=== PATIENT | male | born 1955 | race African-American/Black ===

== ENCOUNTER 2025-01-06 10:16 | Inpatient (IN) | payer OTHER, SELFPAY ==
[2025-01-06] VITALS (45 sets, daily range): BP systolic 91–139; BP diastolic 63–97; PULSE 84–109; RESP 11–26; TEMP 36.7–37.4; O2SAT 99–100; BMI 19.9
--- NOTE | ~2025-01-06 | XR_ITS ---
XR chest 1V portable Ordering provider: Janneth Parks PA-C History: 69 years Male with . ongoing SOB . Comparison: January 06, 2025 FINDINGS: MEDIASTINUM: The cardiac silhouette is not enlarged. Left PICC line with the tip in the superior vena cava. LUNGS: No effusions or pneumothorax. Opacification in the right lower lobe is seen suggestive of atel ectasis versus pneumonia. Minimal opacification the left lung base medially is also seen. OTHER: No free air under the diaphragm. IMPRESSION: Right basilar atelectasis versus pneumonia. Left basilar atelectatic changes. No change from previous examination. Reviewed, dictated and finalized at location A. IMPRESSION: Right basilar atelectasis versus pneumonia. Left basilar atelectatic changes. N o change from previous examination.
--- NOTE | ~2025-01-06 | XR_ITS ---
Supine and upright views of the abdomen Clinical history: Constipation Findings: Bowel gas pattern is nonspecific. No evidence for obstruction or free air. No abnormal mass lesion or calcification is seen. There is advanced degenerative change of both hip joints.. Impression: Nonspecific bowel gas pattern. Moderate stool at the distal rectum. Advanced degenerative change of both hip joints. Reviewed, dictated and finalized at location . Impression: Nonspecific bowel gas pattern. Moderate stool at the distal rectum. Advanced degenerative change of both hip joints.
--- NOTE | ~2025-01-06 | US_ITS ---
LEFT UPPER EXTREMITY VENOUS ULTRASOUND Ordering provider: Janneth Parks PA-C History: . edema . Comparison: None. FINDINGS: --JUGULAR: Patent and free of thrombus. Normal compressibility, phasic flow and augmentation. --SUBCLAVIAN: Patent and free of thrombus. Normal compressibility, phasic flow and augmentation. PICC line is noted. --AXILLARY: Not evaluated. --BRACHIAL: Patent and free of thrombus. Normal compressibility, phasic flow and augmentation. --CEPHALIC: Partially compressible. --BASILIC: Patent and free of thrombus. Normal compressibility, phasic flow and augmentation. --RADIAL: Patent and free of thrombus. Normal compressibility, phasic flow and augmentation. --ULNAR: Patent and free of thrombus. Normal compressibility, phasic flow and augmentation. IMPRESSION: Partial compression of the cephalic vein which may indicate thrombosis. Axillary vein is not evaluated. Other veins are unremarkable. Reviewed, dictated and finalized at location A.
--- NOTE | ~2025-01-06 | CT_ITS ---
CLINICAL INDICATION: Leukocytosis, now with abdominal pain COMPARISON: 01/06/2025. TECHNIQUE: Multiple contiguous axial images of the abdomen and pelvis were performed following the ad ministration of with 100 mL Omnipaque-350 intravenous contrast The dose-length product (DLP) was 466.24 mGy-cm. Automated exposure control and iterative reconstruction technique were employed. FINDINGS/OBSERVATIONS: Visualized lower thorax: Redemonstration of right basilar consolidation. Redemonstration of a left lower lobe bleb. The heart is of normal size, without pericardial effusion. Small hiatal hernia is present. Liver: The liver demonstrates homogeneous enhancement and is not enlarged. Gallbladder and biliary system: The gallbladder is only minimally distended, demonstrating vicarious excretion of contrast. Pancreas: The pancreas enhances homogeneously without ductal dilatation. Spleen: The spleen enhances homogeneously and is not enlarged. Kidneys: No hydronephrosis or renal calculi. Global enlargement of the bilateral kidneys, unchanged from prior. Wedge shaped decreased enhancement, suggesting pyelonephritis. Adrenal glands: Unremarkable. Gastrointestinal tract: Fecal stasis distends the rectum which is markedly enlarged to the level of the splenic flexure of th e colon. Mural thickening is also noted along with surrounding inflammatory change The appendix is not definitively visualized. However, no pericecal inflammatory change is identified suggest the presence of acute appendicitis. Vasculature: Densely calcified atherosclerotic disease. Lymph nodes: Limited evaluation secondary to the lack of intravenous abdominal and intrapelvic fat. Pelvic structures: The bladder is decompressed with a Potter catheter, limiting its evaluation The prostate gland is not visualized. Body wall and musculoskeletal: Age-appropriate degenerative disease within the lower thoracic and lumbosacral spines. IMPRESSION: Findings suggesting pyelonephritis, as detailed above. Redemonstration of significant fecal stasis distending the rectum and extending retrograde to the lev el of the splenic flexure, consistent with fecal impaction. Reviewed, dictated and finalized at location A. IMPRESSION: Findings suggesting pyelonephritis, as detailed above. Redemonstration of significant fecal stasis distending the rectum and extending retrograde to the level of the splenic flexure, consistent with fecal impactio n.
--- NOTE | ~2025-01-06 | CT_ITS ---
EXAMINATION: CT abdomen pelvis wo con DATE: 01/06/2025 13:06 INDICATION: Hematuria TECHNIQUE: Computed tomography (CT) of the abdomen and pelvis was performed without intravenous contr ast. The dose-length product was 273.49 mGy-cm. Automated exposure control and iterative reconstructi on technique were employed. COMPARISON: Chest x-ray dated 01/06/2025 FINDINGS: There is right lower lobe airspace disease, consistent with pneumonia. There is a large ble b involving the left fissure. Heart size normal. No significant pleural or pericardial effusion. Ther e is high density material in the gallbladder lumen which may represent stones, sludge or vicarious e xcretion of contrast. The liver, spleen, pancreas, adrenal glands and kidneys are unremarkable. Nonob structive bowel gas pattern. Large amount retained fecal material in the colon. Potter catheter presen t in the bladder lumen. Bladder wall is diffusely thickened. There is nondependent gas in the bladder lumen, likely from Potter catheter placement. Large amount of retained fecal material in the rectum. There is atherosclerosis of the aorta. Aorta not well visualized. Severe osteoarthritis of the hips. There is grade 1 spondylolisthesis at L5-S1 with right-sided spondylolysis. Moderate lumbar spondylos is. Calcifications in the right lower abdomen/pelvis may represent appendicoliths. Appendix not well visualized. IMPRESSION: 1. Diffuse bladder wall thickening which may be due to outlet obstruction from enlarged prostate glan d or cystitis. 2: Right lower lobe pneumonia. 3: Moderate retained fecal material throughout the colon with fecal impaction in the rectum. Reviewed, dictated and finalized at location B. IMPRESSION: 1. Diffuse bladder wall thickening which may be due to outlet obstruction from enlarged prostate gland or cystitis. 2: Right lower lobe pneumonia. 3: Moderate retained fecal material throughout the colon with fecal impaction i n the rectum.
--- NOTE | ~2025-01-06 | US_ITS ---
EXAMINATION:US venous doppler LE BI INDICATION:Asymmetric lower extremity edema TECHNIQUE: Multiple grayscale, color flow and Doppler images of the right and left lower extremity de ep venous systems were obtained and reviewed. COMPARISON:No prior studies for comparison. FINDINGS: The common femoral, superficial femoral and popliteal veins demonstrate normal respiratory variation, augmentation and compressibility. Color flow is also seen within the posterior tibial, pe roneal, greater saphenous and profunda veins. IMPRESSION: 1: No lower extremity deep venous thrombosis. Reviewed, dictated and finalized at location []
--- NOTE | ~2025-01-06 | XR_ITS ---
EXAMINATION: XR chest 1V portable DATE: 01/06/2025 11:55 INDICATION: Left upper extremity PICC line placement TECHNIQUE: frontal view of the chest was obtained. COMPARISON: None FINDINGS: Left upper extremity peripherally inserted central venous catheter (PICC) tip at the cephalad superi or vena cava. Focal airspace opacities at the medial aspect of the bilateral lower lung zones which c ould represent atelectasis or pneumonia. Additional linear discoid atelectasis more laterally in the left mid and upper lung zones. No pulmonary edema, pleural effusion or pneumothorax. The cardiomedias tinal silhouette is normal. IMPRESSION: 1. . HMD PICC line tip at the cephalad superior vena cava. 2. Opacities in the medial aspect bilateral lower lung zones which could represent atelectasis or pne umonia. Reviewed, dictated and finalized at location A. IMPRESSION: 1. . HMD PICC line tip at the cephalad superior vena cava. 2. Opacities in the medial aspect bilateral lower lung zones which could repres ent atelectasis or pneumonia.
--- NOTE | 2025-01-06 11:17 | ED_ITS ---
HPI - Wound/Laceration General Chief Complaint: Wound/Laceration <Karine Rose PA-C - Last Filed: 01/06/25 17:05> Stated Complaint: bed sores <HORACIO Rodriguez Last Filed: 01/06/25 17:05> Source: patient, family and RN notes reviewed <Karine Rose PA-C - Last Filed: 01/06/25 17:05> Mode of arrival: EMS <HORACIO Rodriguez Last Filed: 01/06/25 17:05> Limitations: dementia <HORACIO Rodriguez Last Filed: 01/06/25 17:05> History of Present Illness HPI narrative: Patient is a 69 y/o male who presents to the ED via EMS with report of chronic pressure ulcers. Patient is a resident of [facility], bedbound at baseline with contractures of BLE. He was sent for concern over his chronic pressure ulcers needing surgical debridement. Family were debating hospice versus surgical intervention and decided to proceed with surgical intervention. Sent here for further evaluation. No fevers. Patient has left upper extremity PICC line and has recently completed a course of daptomycin for suspected osteomyelitis per family. Patient has no complaints. <ABBIE Rodriguez Last Filed: 01/06/25 17:05> Related Data Allergies/Adverse Reactions: Allergies Allergy/AdvReac Type Severity Reaction Status Date / Time No Known Allergies Allergy Verified 01/06/25 10:30 <Karine Rose PA-C - Last Filed: 01/06/25 17:05> Review of Systems 2 Review of Systems: All systems reviewed & are unremarkable except as noted in HPI. <HORACIO Rodriguez Last Filed: 01/06/25 17:05> All systems reviewed & are unremarkable except as noted in HPI and below < HORACIO Rodriguez Last Filed: 01/06/25 17:05> Exam 2 Narrative: GENERAL: Chronically ill-appearing, thin/frail, non-toxic, in no acute distress. HEAD: Normocephalic, atraumatic. RESPIRATORY: Airway patent, respirations nonlabored. Clear to auscultation bilaterally, no rales, rhonchi, wheezing. CARDIOVASCULAR: Regular rate and rhythm without murmurs, rubs, or gallops. MUSCULOSKELETAL: Contractures of BLE. Pain with movement of BLE. Small eschar ulcer to right heel, approximately 2 x 3 without bogginess, warmth, erythema, signs of infection. Left hip pressure ulcer, 12 x 8, firm, no bogginess/induration/warmth/signs of infection, approx 75% pink granulation tissue. No purulence. R hip pressure ulcer 13x5, mostly eschar but firm, no bogginess/induration/warmth/signs of infection. No purulence. Large superficial ulcer pressure ulcer to near entirety to sacral region, nearly all healthy pink/red granulation tissue, some sheath material present in center w/o purulent drainage. SKIN: Warm, dry, normal color. NEURO: A&O X3. Speech clear. Cranial nerves II-XII grossly intact. Steady gait. No ataxic movements. PSYCHIATRIC: Appropriate mood and affect. Normal interaction. <Karine Rose PA-C - Last Filed: 01/06/25 17:05> Course [facility] NURSE/PA Physician Supervision This visit was performed by both a physician and an APC. I performed all aspects of the MDM as documented. <Andrei Huffman MD - Last Filed: 01/06/25 17:30> Vital Signs Vital signs: Vital Signs Temperature 98.4 F 01/06/25 10:17 Pulse Rate 101 H 01/06/25 10:17 Respiratory Rate 18 01/06/25 10:17 Blood Pressure 92/64 L 01/06/25 10:17 Pulse Oximetry 100 01/06/25 10:17 Oxygen Delivery Room Air 01/06/25 10:17 Temperature 98.0 F 01/06/25 16:30 Pulse Rate 105 H 01/06/25 16:31 Respiratory Rate 25 H 01/06/25 16:31 Blood Pressure 139/92 H 01/06/25 16:31 Pulse Oximetry 100 01/06/25 16:30 Oxygen Delivery Room Air 01/06/25 10:17 <Karine Rose PA-C - Last Filed: 01/06/25 17:05> Vital Signs Temperature 98.4 F 01/06/25 10:17 Pulse Rate 101 H 01/06/25 10:17 Respiratory Rate 18 01/06/25 10:17 Blood Pressure 92/64 L 01/06/25 10:17 Pulse Oximetry 100 01/06/25 10:17 Oxygen Delivery Room Air 01/06/25 10:17 Temperature 98.0 F 01/06/25 16:30 Pulse Rate 105 H 01/06/25 16:31 Respiratory Rate 25 H 01/06/25 16:31 Blood Pressure 139/92 H 01/06/25 16:31 Pulse Oximetry 100 01/06/25 16:30 Oxygen Delivery Room Air 01/06/25 10:17 <Andrei Huffman MD - Last Filed: 01/06/25 17:30> MDM - Wound/Laceration MDM Narrative Medical decision making narrative: Wound care came to evaluate patient and determined wounds to be very stable. No intervention required. Recommend daily dressing changes, topical therapies. No indication for surgical debridement at all. No evidence of acute infection. Discussed this with family (Eliud Kern -son) via phone, discussed how wound care evaluated patient and determined no intervention needed at this time for wounds. Does confirm patient has been on IV PICC line abx for his wounds. Per records, completed month course of Daptomycin 12/17. Urine in nair catheter bag did appear very dark and cloudy. Nair catheter was replaced in the ED. UA obtained, does appear infectious with decent amount of blood. Sent for cx. Will tx. No previous urine cultures to compare to. Keflex started in the ED. CT of abdomen/pelvis was obtained to rule out stone or other obstructive process. Does show evidence of cystitis. No obstructing stone. Also shows right lower lobe pneumonia as well as fecal impaction with moderate stool burden. NANCI with digital disimpaction was performed in the ED. Stool slightly higher up than can be reached via finger, but was able to remove some stool in break up stool ball. Laboratory studies were obtained and showing marked leukocytosis of 26.2. Neutrophil predominance. No bandemia. Anemia at 9.8. No records to compare to. CMP is fairly unremarkable. Patient appears dry. Was given fluids in the ED. Will be admitted for further evaluation of UTI/PNA. His blood pressure was initially very slightly soft upon arrival with MAPs well above 60. He was given a L fluid bolus and blood pressures improved into 120s to 130s systolic. Remainder of vital signs have been stable. He is not febrile here. He is otherwise not meeting criteria for sepsis at this time. Will discuss with hospitalist team antibiotic regimen. Discussed case with Tammie Saenz NP hospitalist, accepted patient for admission. Recommended CAP antibiotics for pneumonia/UTI. Patient in agreement with plan. <Karine Rose PA-C - Last Filed: 01/06/25 17:05> Medical Records Attestation: I reviewed the patient's medical records. <Karine Rose PA-C - Last Filed: 01/06/25 17:05> Lab Data Attestation: I reviewed the patient's lab results. <Karine Rose PA-C - Last Filed: 01/06/25 17:05> Result diagrams: 01/06/25 14:30 01/06/25 14:30 <HORACIO Rodriguez Last Filed: 01/06/25 17:05> Labs: Lab Results 01/06/25 01/06/25 Range/Units 11:56 14:30 WBC 26.2 H (4.5-10.0) K/mm3 RBC 3.35 L (4.6-6.20) M/mm3 Hgb 9.8 L (14.0-18.0) g/dL Hct 30.3 L (42.0-52.0) % MCV 90.4 (80-100) fl MCH 29.3 (26-34) pg MCHC 32.3 (32-36) g/dl RDW 16.2 H (11.5-14.5) % Plt Count 420 H (150-375) k/mm3 MPV 9.3 (7.4-10.4) fl Immature Gran % (Auto) 1.0 H (0-0.5) % Neut % (Auto) 87.4 H (45.5-73.1) % Lymph % (Auto) 6.4 L (18.3-44.2) % [place] % (Auto) 4.8 (2.6-8.5) % Eos % (Auto) 0.2 (0-4.4) % Baso % (Auto) 0.2 (0.2-1.2) % Lymph # (Auto) 1.67 (0.9-3.2) K/mm3 [place] # (Auto) 1.3 H (0.1-0.6) K/mm3 Eos # (Auto) 0.0 (0-0.3) K/mm3 Baso # (Auto) 0.1 (0.0-0.1) K/mm3 Abs Immat Gran (auto) 0.25 H (0.00-0.031) K/mm3 Absolute Neuts (auto) 23.0 H (1.3-6.7) K/mm3 Absolute Nucleated RBC 0.000 (0.0-0.012) K/mm3 Band Neutrophils % Not Reportable Nucleated RBC % 0.0 (0.0-0.2) % Platelet Estimate Adequate (Adequate) Hypochromasia 1+ Schistocytes None seen Sodium 136 L (137-145) mmol/L Potassium 3.6 (3.4-5.0) mmol/L Chloride 105 (98-107) mmol/L Carbon Dioxide 26 (22-30) mmol/L Anion Gap 5 (4-12) mmol/L BUN 40 H (9-20) mg/dL Creatinine 0.85 (0.7-1.3) mg/dL Estim Creat Clear Calc Not Reportable Estimated GFR > 60 (59 - ) Glucose 123 H (65-110) mg/dL Calcium 8.4 (8.4-10.2) mg/dL Total Bilirubin 0.2 (0.2-1.3) mg/dL AST 85 H (17-59) U/L ALT 43 (6-50) U/L Alkaline Phosphatase 126 (38-126) U/L Total Protein 5.9 L (6.3-8.2) g/dL Albumin 2.4 L (3.5-5.1) g/dL Urine Color Dark yellow (Yellow) Urine Appearance Cloudy H (Clear) Urine pH 5.0 (5.0-9.0) Ur Specific [place] 1.024 (1.001-1.035) Urine Protein 1+ H (Negative) mg/dL Urine Glucose (UA) Negative (Negative) mg/dL Urine Ketones Trace H (Negative) mg/dL Ur Blood (Man) 3+ H (Negative) Urine Nitrate Positive H (Negative) Urine Bilirubin Negative (Negative) Urine Urobilinogen 1.0 (<2.0) mg/dL Add Ur Microanalysis Reviewed Leukocyte Esterase Rfl 2+ H (Negative) SLICK/UL Urine RBC 51-100 H (0-2) /hpf Urine WBC 21-50 H (0-3) /hpf Ur Squamous Epith Cells None seen (Few) /hpf Urine Bacteria Rare /hpf Urine Casts 0-2 <Karine Rose PA-C - Last Filed: 01/06/25 17:05> Lab Results 01/06/25 01/06/25 Range/Units 11:56 14:30 WBC 26.2 H (4.5-10.0) K/mm3 RBC 3.35 L (4.6-6.20) M/mm3 Hgb 9.8 L (14.0-18.0) g/dL Hct 30.3 L (42.0-52.0) % MCV 90.4 (80-100) fl MCH 29.3 (26-34) pg MCHC 32.3 (32-36) g/dl RDW 16.2 H (11.5-14.5) % Plt Count 420 H (150-375) k/mm3 MPV 9.3 (7.4-10.4) fl Immature Gran % (Auto) 1.0 H (0-0.5) % Neut % (Auto) 87.4 H (45.5-73.1) % Lymph % (Auto) 6.4 L (18.3-44.2) % [place] % (Auto) 4.8 (2.6-8.5) % Eos % (Auto) 0.2 (0-4.4) % Baso % (Auto) 0.2 (0.2-1.2) % Lymph # (Auto) 1.67 (0.9-3.2) K/mm3 [place] # (Auto) 1.3 H (0.1-0.6) K/mm3 Eos # (Auto) 0.0 (0-0.3) K/mm3 Baso # (Auto) 0.1 (0.0-0.1) K/mm3 Abs Immat Gran (auto) 0.25 H (0.00-0.031) K/mm3 Absolute Neuts (auto) 23.0 H (1.3-6.7) K/mm3 Absolute Nucleated RBC 0.000 (0.0-0.012) K/mm3 Band Neutrophils % Not Reportable Nucleated RBC % 0.0 (0.0-0.2) % Platelet Estimate Adequate (Adequate) Hypochromasia 1+ Schistocytes None seen Sodium 136 L (137-145) mmol/L Potassium 3.6 (3.4-5.0) mmol/L Chloride 105 (98-107) mmol/L Carbon Dioxide 26 (22-30) mmol/L Anion Gap 5 (4-12) mmol/L BUN 40 H (9-20) mg/dL Creatinine 0.85 (0.7-1.3) mg/dL Estim Creat Clear Calc Not Reportable Estimated GFR > 60 (59 - ) Glucose 123 H (65-110) mg/dL Calcium 8.4 (8.4-10.2) mg/dL Total Bilirubin 0.2 (0.2-1.3) mg/dL AST 85 H (17-59) U/L ALT 43 (6-50) U/L Alkaline Phosphatase 126 (38-126) U/L Total Protein 5.9 L (6.3-8.2) g/dL Albumin 2.4 L (3.5-5.1) g/dL Urine Color Dark yellow (Yellow) Urine Appearance Cloudy H (Clear) Urine pH 5.0 (5.0-9.0) Ur Specific [place] 1.024 (1.001-1.035) Urine Protein 1+ H (Negative) mg/dL Urine Glucose (UA) Negative (Negative) mg/dL Urine Ketones Trace H (Negative) mg/dL Ur Blood (Man) 3+ H (Negative) Urine Nitrate Positive H (Negative) Urine Bilirubin Negative (Negative) Urine Urobilinogen 1.0 (<2.0) mg/dL Add Ur Microanalysis Reviewed Leukocyte Esterase Rfl 2+ H (Negative) SLICK/UL Urine RBC 51-100 H (0-2) /hpf Urine WBC 21-50 H (0-3) /hpf Ur Squamous Epith Cells None seen (Few) /hpf Urine Bacteria Rare /hpf Urine Casts 0-2 <Andrei Huffman MD - Last Filed: 01/06/25 17:30> Imaging Data Attestation: I personally reviewed and interpreted this imaging study as follows: < Karine N. Gaudreault, PA-C - Last Filed: 01/06/25 17:05> Radiologist's impression: ITS Impressions Chest X-Ray 01/06/25 12:08 IMPRESSION: 1. . HMD PICC line tip at the cephalad superior vena cava. 2. Opacities in the medial aspect bilateral lower lung zones which could represent atelectasis or pneumonia. Abdomen/Pelvis CT 01/06/25 14:02 IMPRESSION: 1. Diffuse bladder wall thickening which may be due to outlet obstruction from enlarged prostate gland or cystitis. 2: Right lower lobe pneumonia. 3: Moderate retained fecal material throughout the colon with fecal impaction in the rectum. <HORACIO Rodriguez Last Filed: 01/06/25 17:05> Discharge Plan Discharge Clinical Impression: Pressure ulcer Qualifiers: Pressure injury location: unspecified location Pressure injury stage: u nspecified pressure injury stage Qualified Code(s): L89.90 - Pressure ulcer of unspecified site, unspecified stage UTI (urinary tract infection) Qualifiers: Urinary tract infection type: acute cystitis Hematuria presence: with hematuria Qualified Code(s): N30.01 - Acute cystitis with hematuria Pneumonia Qualifiers: Pneumonia type: due to unspecified organism Laterality: right Lung location: l ower lobe of lung Qualified Code(s): J18.9 - Pneumonia, unspecified organism Constipation Qualifiers: Constipation type: unspecified constipation type Qualified Code(s): K59.00 - Constipation, unspecified <HORACIO Rodriguez Last Filed: 01/06/25 17:05> Patient Disposition: Still a Patient <HORACIO Rodriguez Last Filed: 01/06/25 17:05> Condition: Stable <HORACOI Rodriguez Last Filed: 01/06/25 17:05>
--- NOTE | 2025-01-06 11:49 | PC.NURSE ---
vanilla ice cream and pepsi ordered
[2025-01-06 12:26] LABS: Add Urine Microscopic? YES; Appearance Urine Cloudy (Clear); Bacteria Urine Rare /hpf; Bilirubin Urine Negative (Negative); Blood Urine 3+ (Negative); Color Urine Dark Yellow (Yellow); Glucose Urine UA Negative (Negative); Ketones Urine Trace mg/dL (Negative); Leukocyte Esterase Ur 2+ LEU/UL (Negative); Need Manual Microscopic Reviewed; Nitrate Urine Positive (Negative); Non Pathogenic Casts 0-2; Protein Urine 1+ mg/dL (Negative); RBC Urine 51-100 /hpf (0-2); Specific Grav Ur 1.024 (1.001-1.035); Squamous Epithelial Cell Urine None Seen /hpf (Few); WBC Urine 21-50 /hpf (0-3)
[2025-01-06] MEDS: SODIUM CHLORIDE 0.9% IV 1,000 ML 999 ML IV CONT (12:46)
[2025-01-06] MEDS: CEPHALEXIN 500 MG CAPSULE PO (12:46)
[2025-01-06 14:38] LABS: Basophils Absolute Auto 0.1 K/mm3 (0.0-0.1); Basophils Percent Auto 0.2 % (0.2-1.2); Eosinophils Percent Auto 0.2 % (0-4.4); Hematocrit 30.3 % (42.0-52.0); Hemoglobin 9.8 g/dL (14.0-18.0); Immature Granulocyte Absolute 0.25 K/mm3 (0.00-0.031); Lymphocytes Absolute Auto 1.67 K/mm3 (0.9-3.2); Lymphocytes Percent Auto 6.4 % (18.3-44.2); Mean Corpuscular HGB Conc 32.3 g/dl (32-36); Mean Corpuscular Hemoglobin 29.3 pg (26-34); Mean Corpuscular Volume 90.4 fl (80-100); Mean Platelet Volume 9.3 fl (7.4-10.4); Monocytes Absolute Auto 1.3 K/mm3 (0.1-0.6); Monocytes Percent Auto 4.8 % (2.6-8.5); Neutrophils Percent Auto 87.4 % (45.5-73.1); Platelet Count Result 420 k/mm3 (150-375); Red Blood Count 3.35 M/mm3 (4.6-6.20); Red Cell Distribution Width 16.2 % (11.5-14.5); White Blood Count 26.2 K/mm3 (4.5-10.0)
[2025-01-06 14:57] LABS: Hypochromasia 1+; Platelet Estimate Adequate (Adequate); Schistocytes None Seen
[2025-01-06 14:59] LABS: Alanine Aminotransferase 43 U/L (6-50); Albumin Level 2.4 g/dL (3.5-5.1); Alkaline Phosphatase 126 U/L (38-126); Anion Gap 5 mmol/L (4-12); Aspartate Amino Transferase 85 U/L (17-59); Bilirubin,Total 0.2 mg/dL (0.2-1.3); Blood Urea Nitrogen 40 mg/dL (9-20); Calcium 8.4 mg/dL (8.4-10.2); Carbon Dioxide 26 mmol/L (22-30); Chloride 105 mmol/L (98-107); Estimated Glomerular Filt Rate > 60; Glucose 123 mg/dL (65-110); Potassium 3.6 mmol/L (3.4-5.0); Sodium 136 mmol/L (137-145); Total Protein 5.9 g/dL (6.3-8.2)
--- NOTE | 2025-01-06 16:58 | PC.NURSE ---
patient being admitted with IV abx inufsing per order
[2025-01-06 16:59] LABS: Lactic Acid Reflex 1.5 mmol/L (0.7-2.0)
[2025-01-06] MEDS: CENTRAL LINE FLUSH 10 ML IV PUSH (17:33)
[2025-01-06] MEDS: AZITHROMYCIN 500 MG/NS 250 ML 500 MG/250 ML BAG 250 MG IVPB (17:33)
--- NOTE | 2025-01-06 21:38 | ECG_ITS ---
Test Date: 2025-01-06 22:00:34 Measurements Intervals [place] Rate: 97 P: 85 ID: [id number] QRS: -35 QRSD: 83 T: 71 QT: 338 QTc: 431 Interpretive Statements SINUS RHYTHM LEFT AXIS DEVIATION EARLY PRECORDIAL R/S TRANSITION BASELINE ARTIFACT- I, AVR, AVL, V1-V5 BORDERLINE ECG No previous ECG available for comparison Electronically Signed On 01-07-2025 06:03:21 CDT by Lamberto Morejon D.O.
--- NOTE | 2025-01-06 22:50 | PM.IMHP ---
H&P: HPI History of Present Illness Date/Time: 01/06/25 22:50 Chief Complaint: Evaluation of bedsores Narrative: Patient has a history of schizophrenia and bipolar disorder, orthostatic hypotension, chronic constipation and BPH who [facility] concern for possible infection of chronic pressure ulcers. According to the ER physician note patient is chronically bed-bound baseline with flexion contractures of bilateral lower extremities. According to documentation from [facility] patient was [facility] from [facility]. He was treated there for sepsis pneumonia sacral ulcers and right upper extremity DVT. He completed a course of daptomycin through left upper extremity PICC line for possible osteomyelitis of the sacrum on 12/17/2024. According to the ER note the patient's family was debating hospice versus surgical intervention for the patient's sacral wounds. Wound Care nurses felt that there is no need for further debridement of the patient's wounds in the appear to be in good condition. Patient arrived to the hospital with a Potter catheter in place with dark cloudy urine subsequently the patient's Potter catheter was exchanged in the ER and UA was obtained which demonstrated nitrates and esterase but rare bacteria. CT of the abdomen pelvis was obtained which showed possible cystitis versus chronic outlet obstruction. No kidney stones were noted. Incidental finding of a right lower lobe pneumonia and fecal impaction with moderate stool burden. Patient underwent digital rectal exam with disimpaction performed by ER provider. There was still stool retained above the level at could be disimpacted. Labs demonstrated leukocytosis with white count of 26.2 with a neutrophil predominance but no bandemia. Hemoglobin was 9.8 with no prior records available for comparison. Patient was felt to be volume depleted in the ER and received fluid bolus. Patient was mildly hypotensive in the ER was systolic blood pressures of 92/64. After fluid bolus patient's blood pressures normalized. Patient was having intermittent tachycardia with heart rates in the 110s and intermittent tachypnea with respiratory rate between 16 and 24. Patient was not requiring oxygen. The patient at time a my evaluation only complains of left arm pain. He complains that he wants to be covered backup and requests multiple drinks of Pepsi. I assisted the patient in drinking soda that was at his bedside. He was unable to provide any other meaningful information for his review of systems. Subsequently details were obtained from ER physician report, [facility] records and external medication database. Review of Systems Review of Systems: ROS unobtainable: Yes unobtainable due to mental status PMFSH Past Medical History Medical History (Updated 01/07/25 @ 03:54 by Cyndee Stoll DO) Severe protein-calorie malnutrition Deep vein thrombosis, upper right extremity Chronic indwelling Potter catheter Due to pressure ulcer and BPH Schizophrenia Bipolar disorder Essential hypertension Chronic kidney disease, stage 2 (mild) Chronic constipation BPH (benign prostatic hyperplasia) Orthostatic hypotension Chronic anticoagulation Surgical History Surgical History (Updated 01/07/25 @ 03:54 by Cyndee Stoll DO) History of incision and drainage Debridement of multiple pressure wounds Social History Social History Spiritual care concerns: No Meds Home Medications and Allergies Home Medications ?Medication ?Instructions ?Recorded ?Confirmed ?Type acetaminophen 500 mg tablet 1,000 mg PO Q6H PRN fever or pain 01/06/25 01/06/25 History amino acids-protein hydrolysate 15 1 ea PO QID 01/06/25 01/06/25 History gram-100 kcal/30 mL oral liquid (Pro-Stat Sugar Free) aripiprazole 10 mg tablet 10 mg PO DAILY 01/06/25 01/06/25 History ascorbic acid (vitamin C) 500 mg 500 mg PO DAILY 01/06/25 01/06/25 History chewable tablet (Acerola C) aspirin 81 mg chewable tablet 81 mg PO DAILY 01/06/25 01/06/25 History finasteride 5 mg tablet 5 mg PO DAILY 01/06/25 01/06/25 History hydrocodone 5 mg-acetaminophen 325 1 tablet PO BID 01/06/25 01/06/25 History mg tablet meloxicam 15 mg tablet 15 mg PO DAILY 01/06/25 01/06/25 History methimazole 5 mg tablet 5 mg PO BID 01/06/25 01/06/25 History metronidazole 500 mg tablet 500 mg PO TID 01/06/25 01/06/25 History midodrine 5 mg tablet 5 mg PO TID 01/06/25 01/06/25 History mirtazapine 15 mg tablet (Remeron) 15 mg PO HS 01/06/25 01/06/25 History polyethylene glycol 3350 17 17 g PO DAILY 01/06/25 01/06/25 History gram/dose oral powder (Miralax) psyllium husk 3.4 gram oral powder 2 packet PO BID 01/06/25 01/06/25 History packet (Daily Fiber (psyllium-aspartame)) sennosides 8.6 mg capsule (senna) 8.6 mg PO BID 01/06/25 01/06/25 History tamsulosin 0.4 mg capsule 0.4 mg PO DAILY 01/06/25 01/06/25 History trihexyphenidyl 2 mg tablet 2 mg PO BID 01/06/25 01/06/25 History vitamin B complex and vitamin C 1 cap PO DAILY 01/06/25 01/06/25 History no.20-folic acid 1 mg capsule (Mynephrocaps) warfarin 5 mg tablet 5 mg PO DAILY 01/06/25 01/06/25 History zinc gluconate 50 mg tablet 50 mg PO DAILY 01/06/25 01/06/25 History Allergies Allergy/AdvReac Type Severity Reaction Status Date / Time No Known Allergies Allergy Verified 01/06/25 10:30 Vital Signs Vital Signs - 24 hr 01/06/25 10:17 01/06/25 10:25 01/06/25 10:30 Temperature 98.4 F Pulse Rate 101 H 95 99 Respiratory Rate 18 18 18 Blood Pressure 92/64 L Pulse Oximetry 100 100 100 Oxygen Delivery Room Air 01/06/25 10:31 01/06/25 10:45 01/06/25 10:46 Temperature Pulse Rate 100 99 101 H Respiratory Rate 23 H 16 22 H Blood Pressure 91/65 L 98/65 L Pulse Oximetry 100 100 100 Oxygen Delivery 01/06/25 11:00 01/06/25 11:01 01/06/25 11:15 Temperature Pulse Rate 93 93 88 Respiratory Rate 19 15 16 Blood Pressure Pulse Oximetry Oxygen Delivery 01/06/25 11:16 01/06/25 11:18 01/06/25 11:19 Temperature Pulse Rate 90 90 90 Respiratory Rate 15 15 11 L Blood Pressure 92/63 L Pulse Oximetry 99 Oxygen Delivery 01/06/25 11:30 01/06/25 11:31 01/06/25 11:45 Temperature Pulse Rate 87 91 91 Respiratory Rate 14 16 15 Blood Pressure 99/68 L Pulse Oximetry Oxygen Delivery 01/06/25 11:46 06/11/25 12:01 01/06/25 12:02 Temperature Pulse Rate 97 85 85 Respiratory Rate 17 17 13 Blood Pressure 97/65 L 94/63 L Pulse Oximetry Oxygen Delivery 01/06/25 12:15 01/06/25 12:16 01/06/25 12:35 Temperature Pulse Rate 88 93 88 Respiratory Rate 11 L 15 16 Blood Pressure 100/68 107/72 Pulse Oximetry Oxygen Delivery 01/06/25 12:44 01/06/25 12:54 01/06/25 13:08 Temperature Pulse Rate 85 90 94 Respiratory Rate 13 14 24 H Blood Pressure Pulse Oximetry Oxygen Delivery 01/06/25 13:15 01/06/25 13:30 01/06/25 13:45 Temperature Pulse Rate 86 88 84 Respiratory Rate 13 18 16 Blood Pressure Pulse Oximetry Oxygen Delivery 01/06/25 13:47 01/06/25 14:00 01/06/25 14:01 Temperature Pulse Rate 89 86 87 Respiratory Rate 15 14 12 Blood Pressure 114/81 119/78 Pulse Oximetry Oxygen Delivery 01/06/25 14:15 01/06/25 14:16 01/06/25 14:30 Temperature Pulse Rate 90 89 96 Respiratory Rate 18 24 H 14 Blood Pressure 122/86 Pulse Oximetry Oxygen Delivery 01/06/25 14:31 01/06/25 14:57 01/06/25 15:00 Temperature Pulse Rate 95 109 H 103 H Respiratory Rate 15 18 21 H Blood Pressure 120/90 Pulse Oximetry Oxygen Delivery 01/06/25 15:01 01/06/25 15:15 01/06/25 15:16 Temperature Pulse Rate 100 92 95 Respiratory Rate 16 16 14 Blood Pressure 133/97 H 117/78 Pulse Oximetry Oxygen Delivery 01/06/25 15:37 01/06/25 15:45 01/06/25 16:30 Temperature 98.0 F Pulse Rate 104 H 107 H 102 H Respiratory Rate 18 26 H 14 Blood Pressure 137/97 H Pulse Oximetry 100 Oxygen Delivery 01/06/25 16:31 01/06/25 16:43 01/06/25 18:00 Temperature 99.3 F Pulse Rate 105 H 109 H Respiratory Rate 25 H 16 Blood Pressure 139/92 H 130/82 Pulse Oximetry 100 Oxygen Delivery Room Air 01/06/25 19:40 01/06/25 20:15 Temperature 98.1 F Pulse Rate 105 H Respiratory Rate 17 Blood Pressure 128/80 Pulse Oximetry 100 Oxygen Delivery Room Air Exam Narrative: Weight 57.8 kg BMI 20 Const: Other: Chronically ill-appearing, appears older than stated age, thin body habitus HENMT: Other: Mucous membranes are tacky, teeth are broken off at the gumline the remainder of teeth the republican been removed, the teeth after remaining are carried, patient has deviation tongue and facial asymmetry Eyes: Other: Pupils are equal and reactive, extraocular movements intact Neck: Other: No JVD, no lymphadenopathy Resp: Other: Shallow respirations, decreased breath sounds at the bases, no increased work of breathing Cardio: Other: Mildly tachycardic, 2+ bilateral radial and pedal pulses, no JVD, no murmur GI: Other: Soft, nontender, nondistended, positive bowel sounds : Other: Potter catheter in place with cloudy yellow urine Back/Spine/Pelvis: Other: Sacral ulcer with exposed bone and tendon please see wound care photos with clean wound beds consistent with chronic stable wound Skin: Other: Patient has unstageable ulcers bilateral hips with soft material colored yellow to dark ann, right heel with overlying eschar that is firm Neuro: Other: Patient is aware that he is in the hospital and is oriented to his name this is reported the patient's baseline. Patient denies any history of stroke this seems to be an accurate given the patient has contractures of his bilateral lower extremities and is unable to move his left upper extremity and the patient has left facial droop, speech is slurred and difficult to understand Extrem: Other: Patient has pitting edema bilateral lower extremities wounds to the right heel as discussed above under skin exam, James is tight in [place] above her bilateral lower extremities, pressure relieving boots in place, flexion contractures at bilateral knees and hips, PICC line in the left upper arm Psych: Other: Pleasantly confused, cooperative H&P: Results Labs Labs: Laboratory Tests 01/06/25 14:30 01/06/25 14:30 01/06/25 01/06/25 01/06/25 11:56 14:30 16:30 WBC 26.2 H RBC 3.35 L Hgb 9.8 L Hct 30.3 L MCV 90.4 MCH 29.3 MCHC 32.3 RDW 16.2 H Plt Count 420 H MPV 9.3 Immature Gran % (Auto) 1.0 H Neut % (Auto) 87.4 H Lymph % (Auto) 6.4 L [place] % (Auto) 4.8 Eos % (Auto) 0.2 Baso % (Auto) 0.2 Lymph # (Auto) 1.67 [place] # (Auto) 1.3 H Eos # (Auto) 0.0 Baso # (Auto) 0.1 Abs Immat Gran (auto) 0.25 H Absolute Neuts (auto) 23.0 H Absolute Nucleated RBC 0.000 Band Neutrophils % Not Reportable Nucleated RBC % 0.0 Platelet Estimate Adequate Hypochromasia 1+ Schistocytes None seen Absolute Retic Percent Retic Immature Retic Fraction Retic Hgb Content PT INR APTT Sodium 136 L Potassium 3.6 Chloride 105 Carbon Dioxide 26 Anion Gap 5 BUN 40 H Creatinine 0.85 Estim Creat Clear Calc Not Reportable Estimated GFR > 60 Glucose 123 H Lactic Acid 1.5 Calcium 8.4 Iron TIBC % Saturation Ferritin Total Bilirubin 0.2 AST 85 H ALT 43 Alkaline Phosphatase 126 C-Reactive Protein Total Protein 5.9 L Albumin 2.4 L Vitamin B12 Folate Procalcitonin TSH (Reflex) Urine Color Dark yellow Urine Appearance Cloudy H Urine pH 5.0 Ur Specific [place] 1.024 Urine Protein 1+ H Urine Glucose (UA) Negative Urine Ketones Trace H Ur Blood (Man) 3+ H Urine Nitrate Positive H Urine Bilirubin Negative Urine Urobilinogen 1.0 Add Ur Microanalysis Reviewed Leukocyte Esterase Rfl 2+ H Urine RBC 51-100 H Urine WBC 21-50 H Ur Squamous Epith Cells None seen Urine Bacteria Rare Urine Casts 0-2 01/06/25 22:23 WBC RBC Hgb Hct MCV MCH MCHC RDW Plt Count MPV Immature Gran % (Auto) Neut % (Auto) Lymph % (Auto) [place] % (Auto) Eos % (Auto) Baso % (Auto) Lymph # (Auto) [place] # (Auto) Eos # (Auto) Baso # (Auto) Abs Immat Gran (auto) Absolute Neuts (auto) Absolute Nucleated RBC Band Neutrophils % Nucleated RBC % Platelet Estimate Hypochromasia Schistocytes Absolute Retic Pending Percent Retic Pending Immature Retic Fraction Pending Retic Hgb Content Pending PT Pending INR Pending APTT Pending Sodium Potassium Chloride Carbon Dioxide Anion Gap BUN Creatinine Estim Creat Clear Calc Estimated GFR Glucose Lactic Acid Calcium Iron Pending TIBC Pending % Saturation Pending Ferritin Pending Total Bilirubin AST ALT Alkaline Phosphatase C-Reactive Protein Pending Total Protein Albumin Vitamin B12 Pending Folate Pending Procalcitonin Pending TSH (Reflex) Pending Urine Color Urine Appearance Urine pH Ur Specific [place] Urine Protein Urine Glucose (UA) Urine Ketones Ur Blood (Man) Urine Nitrate Urine Bilirubin Urine Urobilinogen Add Ur Microanalysis Leukocyte Esterase Rfl Urine RBC Urine WBC Ur Squamous Epith Cells Urine Bacteria Urine Casts Impressions Chest X-Ray 01/06/25 12:08 IMPRESSION: 1. . HMD PICC line tip at the cephalad superior vena cava. 2. Opacities in the medial aspect bilateral lower lung zones which could represent atelectasis or pneumonia. Abdomen/Pelvis CT 01/06/25 14:02 IMPRESSION: 1. Diffuse bladder wall thickening which may be due to outlet obstruction from enlarged prostate gland or cystitis. 2: Right lower lobe pneumonia. 3: Moderate retained fecal material throughout the colon with fecal impaction in the rectum. EKG: Sinus rhythm rate 97 left axis deviation possible right ventricular conduction delay QTC 431 Assessment and Plan Assessment and plan (1) Sepsis: Qualifiers: Sepsis acute organ dysfunction status: without acute organ dysfunction Sepsis type: sepsis due to unspecified organism Qualified Code(s): A41.9 - Sepsis, unspecified organism Code(s): A41.9 - Sepsis, unspecified organism Status: Acute (2) Pneumonia: Qualifiers: Laterality: right Lung location: lower lobe of lung Pneumonia type: due to unspecified organism Qualified Code(s): J18.9 - Pneumonia, unspecified organism Code(s): J18.9 - Pneumonia, unspecified organism Status: Acute (3) UTI (urinary tract infection): Qualifiers: Hematuria presence: with hematuria Urinary tract infection type: acute cystitis Qualified Code(s): N30.01 - Acute cystitis with hematuria Code(s): N39.0 - Urinary tract infection, site not specified Status: Acute (4) Pressure ulcer: Qualifiers: Pressure injury location: unspecified location Pressure injury stage: unspecified pressure injury stage Qualified Code(s): L89.90 - Pressure ulcer of unspecified site, unspecified stage Code(s): L89.90 - Pressure ulcer of unspecified site, unspecified stage Status: Acute (5) Constipation: Qualifiers: Constipation type: unspecified constipation type Qualified Code(s): K59.00 - Constipation, unspecified Code(s): K59.00 - Constipation, unspecified Status: Acute (6) Hypoalbuminemia due to protein-calorie malnutrition: Code(s): E88.09 - Other disorders of plasma-protein metabolism, not elsewhere classified; E46 - Unspecified protein-calorie malnutrition Status: Acute (7) Anemia: Qualifiers: Anemia type: other cause Other causes of anemia: chronic disease, other Qualified Code(s): D63.8 - Anemia in other chronic diseases classified elsewhere Code(s): D64.9 - Anemia, unspecified Status: Acute (8) Chronic anticoagulation: Code(s): Z79.01 - retirement (current) use of anticoagulants Status: Acute (9) BPH (benign prostatic hyperplasia): Qualifiers: Lower urinary tract symptom presence: symptoms present Lower urinary tract symptom detail: urinary retention Qualified Code(s): N40.1 - Benign prostatic hyperplasia with lower urinary tract symptoms; R33.8 - Other retention of urine Code(s): N40.0 - Benign prostatic hyperplasia without lower urinary tract symptoms Status: Acute (10) Hypotension due to hypovolemia: Code(s): E86.1 - Hypovolemia Status: Acute (11) Chronic constipation: Code(s): K59.09 - Other constipation Status: Inactive (12) Chronic indwelling Potter catheter: Code(s): Z97.8 - Presence of other specified devices Status: Acute (13) Severe protein-calorie malnutrition: Code(s): E43 - Unspecified severe protein-calorie malnutrition Status: Acute (14) Supratherapeutic INR: Code(s): R79.1 - Abnormal coagulation profile Status: Acute Plan Patient has sepsis with criteria including leukocytosis, tachycardia, and tachypnea in the setting of likely pneumonia and or UTI. Patient's borderline low blood pressures resolved after IV fluids. The patient is eager to drink fluids. Encourage oral intake. Patient does have some chronic hypotension and is on midodrine which will be continued. He also has chronic hypoalbuminemia due to severe protein calorie malnutrition and chronic illness. Will provide nutritional supplementation. Patient was started on empiric antibiotic therapy with Rocephin and azithromycin to cover for pneumonia noticed on CT. Rocephin would also cover for UTI. No prior culture results are available for comparison. Patient's tachycardia had resolved after IV fluids. Will repeat CBC and BMP in a.m.. The patient is on chronic anticoagulation with Coumadin due to right upper extremity DVT and his INR is supratherapeutic. Coumadin is on hold. Will check daily INR and resume Coumadin once INR below 3. Patient's hemoglobin is low but is not out of range for anticipated values. Will repeat CBC in a.m.. Will continue home psychiatric medications. Potter catheter will remain in place to patient's nonhealing decubitus ulcers. Potter catheter was exchanged in the ER. Blood cultures and urine cultures have been obtained. Will check urine Legionella and pneumococcal antigen as well as mycoplasma titer. Given degree of lower extremity swelling which actually think left leg is markedly more swollen than right will check bilateral lower extremity for DVT. Patient has been admitted as observation status. Quality If No VTE Prophylaxis Answer both mechanical and pharmacologic: Reason no pharmacologic proph: medical contraindication supratherapeutic INR >3 Hospitalist [facility] Advance Care Plan I have confirmed that the patient's Advanced Care Plan is present, code status is documented, or surrogate decision maker is listed in patient medical record.: Yes Medication Reconciliation I have utilized all available resources to obtain, update and review the patients current medications (includes all prescriptions, OTC, herbals, cannabis, and nutritional supplements).: Yes
[2025-01-06 23:07] LABS: Immature Reticulocyte Fraction 4.5 % (3.0-15.9); Reticulocyte Hemoglobin Conten 32.2 pg (28.2-36.6); Reticulocyte Percent 0.69 % (0.7-4.3); Reticulocytes Absolute 0.02 10^6/uL (0.02-0.10)
[2025-01-06 23:15] LABS: Prothrombin Time 49.2 Seconds (11.1-14.7)
[2025-01-06 23:17] LABS: Partial Thromboplastin Time 84.7 Seconds (22.3-36.8)
[2025-01-06 23:18] LABS: Iron 20 ug/dL (49-181)
[2025-01-06 23:25] LABS: Percent Iron Saturation 17 % (20-50)
[2025-01-06 23:29] LABS: INR 5.8; Procalcitonin 0.5 ng/mL
[2025-01-06] MEDS: MIRTAZAPINE 15 MG TABLET PO (23:43)
[2025-01-06] MEDS: TRIHEXYPHENIDYL HCL 2 MG TABLET PO (23:43)
[2025-01-06] MEDS: HYDROcodone/acetaminophen (*CRX) 5-325 MG TABLET 1 TAB PO (23:44)
[2025-01-06] MEDS: MIDODRINE HCL 2.5 MG TABLET 5 MG PO (23:44)
[2025-01-06] MEDS: ALBUMIN HUMAN 25% 25 GM/100 ML 100 ML IVPB (23:44)
[2025-01-06] MEDS: metroNIDAZOLE 500 MG TABLET PO (23:44)
[2025-01-06 23:55] LABS: CRP 22.4 mg/dL (<1.0)
[2025-01-07 00:31] LABS: Folic Acid 15.2 ng/mL (2.76->20)
[2025-01-07 05:56] VITALS: BP 133/76; PULSE 113; RESP 16; TEMP 36.8; O2SAT 99
[2025-01-07 06:16] LABS: Free T4 Free Thyroxine Reflex 1.38 ng/dL (0.78-2.19)
[2025-01-07 06:24] LABS: Hematocrit 27.2 % (42.0-52.0); Hemoglobin 8.9 g/dL (14.0-18.0); Mean Corpuscular HGB Conc 32.7 g/dl (32-36); Mean Corpuscular Hemoglobin 29.3 pg (26-34); Mean Corpuscular Volume 89.5 fl (80-100); Mean Platelet Volume 9.1 fl (7.4-10.4); Platelet Count Result 405 k/mm3 (150-375); Red Blood Count 3.04 M/mm3 (4.6-6.20)
[2025-01-07] MEDS: CENTRAL LINE FLUSH 10 ML IV PUSH ×3 (06:29→21:21)
[2025-01-07] MEDS: ALBUMIN HUMAN 25% 25 GM/100 ML 100 ML IVPB (06:29)
[2025-01-07 06:34] LABS: Anion Gap 3 mmol/L (4-12); Blood Urea Nitrogen 29 mg/dL (9-20); Calcium 8.3 mg/dL (8.4-10.2); Carbon Dioxide 27 mmol/L (22-30); Chloride 103 mmol/L (98-107); Estimated CRCL calculation 64 ml/min; Estimated Glomerular Filt Rate > 60; Glucose 96 mg/dL (65-110); Potassium 3.6 mmol/L (3.4-5.0); Sodium 133 mmol/L (137-145)
[2025-01-07 06:39] LABS: INR 6.3
[2025-01-07 07:18] LABS: Total Triiodothyronine (T3) 0.57 NG/ML (0.82-1.58)
[2025-01-07] MEDS: MIDODRINE HCL 2.5 MG TABLET 5 MG PO ×3 (08:49→17:13)
[2025-01-07] MEDS: SENNOSIDES 8.6 MG TABLET PO (08:49)
[2025-01-07] MEDS: TAMSULOSIN HCL 0.4 MG CAPSULE PO (08:49)
[2025-01-07] MEDS: FINASTERIDE 5 MG TABLET PO (08:49)
[2025-01-07] MEDS: PSYLLIUM SUGAR FREE POWDER PACKET 2 PACKET PO (08:49)
[2025-01-07] MEDS: methiMAzole 5 MG TAB PO ×2 (08:49→17:13)
[2025-01-07] MEDS: ASPIRIN 81 MG CHEWABLE TABLET PO (08:49)
[2025-01-07] MEDS: polyethylene glycoL 3350 17 GM POWD.PACK PO (08:49)
[2025-01-07] MEDS: VITAMIN B CMPLX/VIT C/FOLIC AC 1 CAPSULE 1 CAP PO (08:49)
[2025-01-07] MEDS: HYDROcodone/acetaminophen (*CRX) 5-325 MG TABLET 1 TAB PO ×2 (08:49→17:12)
[2025-01-07] MEDS: MELOXICAM 7.5 MG TABLET 15 MG PO (08:49)
[2025-01-07] MEDS: metroNIDAZOLE 500 MG TABLET PO ×3 (08:52→17:13)
[2025-01-07] MEDS: ARIPiprazole 10 MG TABLET PO (08:52)
[2025-01-07] MEDS: TRIHEXYPHENIDYL HCL 2 MG TABLET PO ×2 (09:37→17:13)
--- NOTE | 2025-01-07 10:04 | PM.IMPN ---
Progress Note: A&P Assessment and Plan (1) Sepsis: Qualifiers: Sepsis acute organ dysfunction status: without acute organ dysfunction Sepsis type: sepsis due to unspecified organism Qualified Code(s): A41.9 - Sepsis, unspecified organism Code(s): A41.9 - Sepsis, unspecified organism Status: Acute Assessment and Plan: Meets SIRS criteria: leukocytosis, tachycardia, and tachypnea in the setting of likely pneumonia and or UTI. - lactic acid: 1.5 - Received sepsis fluids in ED - blood cultures drawn on 01/06, NGTD - UA concerning for infection, culture obtained on 01/06: pending - CXR: HMD PICC line tip at the cephalad superior vena cava. Opacities in the medial aspect bilateral lower lung zones which could represent atelectasis or pneumonia. - Chest CT: right lower lobe pneumonia - See plan for pneumonia and UTI below (2) Pneumonia: Qualifiers: Laterality: right Lung location: lower lobe of lung Pneumonia type: due to unspecified organism Qualified Code(s): J18.9 - Pneumonia, unspecified organism Code(s): J18.9 - Pneumonia, unspecified organism Status: Acute Assessment and Plan: CXR: HMD PICC line tip at the cephalad superior vena cava. Opacities in the medial aspect bilateral lower lung zones which could represent atelectasis or pneumonia. Chest CT: right lower lobe pneumonia - started on CAP tx: azithromycin ceftriaxone on 01/06 - Viral PCR: negative for Flu/COVID/RSV - ordered legionella, mycoplasma and pneumococcal - no supplemental O2 requirement - Monitor vital signs, I&Os, neuro status and patient is a fall risk - Follow WBC, serum electrolytes, temperature curves and cultures - Send sputum cultures (3) UTI (urinary tract infection): Qualifiers: Hematuria presence: with hematuria Urinary tract infection type: acute cystitis Qualified Code(s): N30.01 - Acute cystitis with hematuria Code(s): N39.0 - Urinary tract infection, site not specified Status: Acute Assessment and Plan: - UA: cloudy appearance with 1+ protein, trace ketones, 3+ blood, positive nitrates, 2+ leukocytes, 51-100 RBC, 21-50 WBC, rare bacteria - Potter catheter in place with dark cloudy urine subsequently the patient's Potter catheter was exchanged in the ER - CT of the abdomen pelvis was obtained which showed possible cystitis versus chronic outlet obstruction. - UC obtained on 01/06, pending - no previous micro to reviewed - started on Rocephin on 01/07 (4) Pressure ulcer: Qualifiers: Pressure injury location: unspecified location Pressure injury stage: unspecified pressure injury stage Qualified Code(s): L89.90 - Pressure ulcer of unspecified site, unspecified stage Code(s): L89.90 - Pressure ulcer of unspecified site, unspecified stage Status: Acute Assessment and Plan: According to documentation from custodial patient was admitted to custodial 11/16/2024 from [facility] for sepsis pneumonia sacral ulcers and right upper extremity DVT. 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 According to the ER note the patient's family was debating hospice versus surgical intervention for the patient's sacral wounds. Wound Care nurses felt that there is no need for further debridement of the patient's wounds in the appear to be in good condition. (5) Supratherapeutic INR: Code(s): R79.1 - Abnormal coagulation profile Status: Acute Assessment and Plan: INR 5.8 on admission, now 6.3 on am labs Holding warfarin Continue to trend No signs of active bleeding (6) Constipation: Qualifiers: Constipation type: unspecified constipation type Qualified Code(s): K59.00 - Constipation, unspecified Code(s): K59.00 - Constipation, unspecified Status: Acute Assessment and Plan: Incidental finding of fecal impaction with moderate stool burden on imaging. Patient underwent digital rectal exam with disimpaction performed by ER provider. There was still stool retained above the level at could be disimpacted. Continue Metamucil BID, and senna BID Monitor I/O Per RN patient had a large bowel movement today. (7) Anemia: Qualifiers: Anemia type: other cause Other causes of anemia: chronic disease, other Qualified Code(s): D63.8 - Anemia in other chronic diseases classified elsewhere Code(s): D64.9 - Anemia, unspecified Status: Acute Assessment and Plan: H/H 8.9/ 27.2 on admission, no signs of active bleeding - Iron panel: Iron 20, TIBC 119, % sat 17, Ferritin 293 - B12 and folate WNL - Started on iron supplementation (8) BPH (benign prostatic hyperplasia): Qualifiers: Lower urinary tract symptom detail: urinary retention Lower urinary tract symptom presence: symptoms present Qualified Code(s): N40.1 - Benign prostatic hyperplasia with lower urinary tract symptoms; R33.8 - Other retention of urine Code(s): N40.0 - Benign prostatic hyperplasia without lower urinary tract symptoms Status: Acute Assessment and Plan: Chronic, continue Flomax and finasteride Chronic Potter catheter in place, exchanged in the ED. (9) Hypotension due to hypovolemia: Code(s): E86.1 - Hypovolemia Status: Acute Assessment and Plan: Chronic, continue home midodrine 5 mg TID. Patient was mildly hypotensive in the ER likely related to some volume depletion, systolic blood pressures of 92/64. After fluid bolus patient's blood pressures normalized. Blood pressures remain stable at this time. Continue to monitor. (10) Severe protein-calorie malnutrition: Code(s): E43 - Unspecified severe protein-calorie malnutrition Status: Acute Assessment and Plan: Supplement per nutrition. Time Spent With Patient Time with patient: 25 - 35 minutes Subjective Date/time seen: 01/07/25 10:04 Interval history: 69 year old male with past medical history of schizophrenia and bipolar disorder, orthostatic hypotension, chronic constipation and BPH who [facility] to the hospital [facility] concern for possible infection of chronic pressure ulcers. According to the ER physician note patient is chronically bed-bound baseline with flexion contractures of bilateral lower extremities. Patient is pleasant lying comfortably in bed. He is AOx2 on assessment. He has no complaints denying chest pain, shortness of breath, palpitations, nausea/vomiting and abdominal pain. Review of Systems Review of Systems: All systems reviewed & are unremarkable except as noted in HPI and below Exam Narrative: AF HR 96 RR 14 SpO2 100 BP 108/63 General: male in no acute respiratory distress who is nontoxic appearing, lying semi recumbent in bed. HEENT: Normocephalic. Atraumatic. Extraocular movement intact. Sclera clear and anicteric. No facial asymmetry. Chest: Lungs are diminished to auscultation bilaterally. CV: Heart was regular rate and rhythm. Abd: Abdomen was soft. Nontender. Nondistended. Positive bowel sounds. Ext: No clubbing, cyanosis, or edema. DP pulses bilaterally. Neuro: Patient is alert and oriented x2 (self, year). Speech is quiet. Objective Data Vital Signs Vital Signs: Vital Signs - 24 hr 01/06/25 10:17 01/06/25 10:25 01/06/25 10:30 Temperature 98.4 F Pulse Rate 101 H 95 99 Respiratory Rate 18 18 18 Blood Pressure 92/64 L Pulse Oximetry 100 100 100 Oxygen Delivery Room Air 01/06/25 10:31 01/06/25 10:45 01/06/25 10:46 Temperature Pulse Rate 100 99 101 H Respiratory Rate 23 H 16 22 H Blood Pressure 91/65 L 98/65 L Pulse Oximetry 100 100 100 Oxygen Delivery 01/06/25 11:00 01/06/25 11:01 01/06/25 11:15 Temperature Pulse Rate 93 93 88 Respiratory Rate 19 15 16 Blood Pressure Pulse Oximetry Oxygen Delivery 01/06/25 11:16 01/06/25 11:18 01/06/25 11:19 Temperature Pulse Rate 90 90 90 Respiratory Rate 15 15 11 L Blood Pressure 92/63 L Pulse Oximetry 99 Oxygen Delivery 01/06/25 11:30 01/06/25 11:31 01/06/25 11:45 Temperature Pulse Rate 87 91 91 Respiratory Rate 14 16 15 Blood Pressure 99/68 L Pulse Oximetry Oxygen Delivery 01/06/25 11:46 01/06/25 12:01 01/06/25 12:02 Temperature Pulse Rate 97 85 85 Respiratory Rate 17 17 13 Blood Pressure 97/65 L 94/63 L Pulse Oximetry Oxygen Delivery 01/06/25 12:15 01/06/25 12:16 01/06/25 12:35 Temperature Pulse Rate 88 93 88 Respiratory Rate 11 L 15 16 Blood Pressure 100/68 107/72 Pulse Oximetry Oxygen Delivery 01/06/25 12:44 01/06/25 12:54 01/06/25 13:08 Temperature Pulse Rate 85 90 94 Respiratory Rate 13 14 24 H Blood Pressure Pulse Oximetry Oxygen Delivery 01/06/25 13:15 01/06/25 13:30 01/06/25 13:45 Temperature Pulse Rate 86 88 84 Respiratory Rate 13 18 16 Blood Pressure Pulse Oximetry Oxygen Delivery 01/06/25 13:47 01/06/25 14:00 01/06/25 14:01 Temperature Pulse Rate 89 86 87 Respiratory Rate 15 14 12 Blood Pressure 114/81 119/78 Pulse Oximetry Oxygen Delivery 01/06/25 14:15 01/06/25 14:16 01/06/25 14:30 Temperature Pulse Rate 90 89 96 Respiratory Rate 18 24 H 14 Blood Pressure 122/86 Pulse Oximetry Oxygen Delivery 01/06/25 14:31 01/06/25 14:57 01/06/25 15:00 Temperature Pulse Rate 95 109 H 103 H Respiratory Rate 15 18 21 H Blood Pressure 120/90 Pulse Oximetry Oxygen Delivery 01/06/25 15:01 01/06/25 15:15 01/06/25 15:16 Temperature Pulse Rate 100 92 95 Respiratory Rate 16 16 14 Blood Pressure 133/97 H 117/78 Pulse Oximetry Oxygen Delivery 01/06/25 15:37 01/06/25 15:45 01/06/25 16:30 Temperature 98.0 F Pulse Rate 104 H 107 H 102 H Respiratory Rate 18 26 H 14 Blood Pressure 137/97 H Pulse Oximetry 100 Oxygen Delivery 01/06/25 16:31 01/06/25 16:43 01/06/25 18:00 Temperature 99.3 F Pulse Rate 105 H 109 H Respiratory Rate 25 H 16 Blood Pressure 139/92 H 130/82 Pulse Oximetry 100 Oxygen Delivery Room Air 01/06/25 19:40 01/06/25 20:15 01/07/25 05:56 Temperature 98.1 F 98.3 F Pulse Rate 105 H 113 H Respiratory Rate 17 16 Blood Pressure 128/80 133/76 Pulse Oximetry 100 99 Oxygen Delivery Room Air 01/07/25 08:00 Temperature Pulse Rate Respiratory Rate Blood Pressure Pulse Oximetry Oxygen Delivery Room Air Intake/Output Intake/Output: Intake & Output 01/04/25 01/05/25 01/06/25 01/07/25 23:59 23:59 23:59 23:59 Intake Total 1240 220 Output Total 750 Balance 1240 -530 Meds/Results Medications: Active Medications Generic Name Dose Route Start Last Admin Trade Name Freq PRN Reason Stop Dose Admin Acetaminophen 650 mg 01/06/25 15:33 Acetaminophen 325 Mg Tablet PO Q4H PRN Mild Pain (1-3) or Fever Hydrocodone Bitart/Acetaminophen 1 tab 01/06/25 22:25 01/07/25 08:49 Hydrocodone/Acetaminophen (*Crx) 5-325 Mg Tablet PO 1 tab BID JIMMY Administration Aripiprazole 10 mg 01/07/25 09:00 01/07/25 08:52 Aripiprazole 10 Mg Tablet PO 10 mg DAILY JIMMY Administration Aspirin 81 mg 01/07/25 09:00 01/07/25 08:49 Aspirin 81 Mg Chewable Tablet PO 81 mg DAILY JIMMY Administration Dextrose 12.5 gm 01/06/25 15:33 Dextrose 50% 25 Gm/50 Ml Syringe IV PUSH PRN PRN Hypoglycemia Protocol Finasteride 5 mg 01/07/25 09:00 01/07/25 08:49 Finasteride 5 Mg Tablet PO 5 mg DAILY JIMMY Administration Glucagon 1 mg 01/06/25 15:33 Glucagon For Inj 1 Mg Vial IM PRN PRN Hypoglycemia Protocol Glucose 15 gm 01/06/25 15:33 Glucose Oral Gel 15 Gm Of Glucse In 37.5 Gm Tube PO PRN PRN Hypoglycemia Protocol Ceftriaxone Sodium 1 gm in 50 mls @ 100 mls/hr 01/07/25 16:00 Rocephin 1 Gm/Ns 50 Ml IVPB Q24H JIMMY Azithromycin 500 mg in 250 mls @ 250 mls/hr 01/07/25 17:00 Zithromax IVPB Q24H JIMMY Dextrose 1,000 mls @ 100 mls/hr 01/06/25 15:33 Dextrose 5% 1,000 Ml IVPB PRN PRN Hypoglycemia Protocol Albumin Human 100 mls @ 60 mls/hr 01/07/25 00:00 01/07/25 06:29 Albutein IVPB 01/07/25 19:39 60 mls/hr Q6HR JIMMY Administration Meloxicam 15 mg 01/07/25 09:00 01/07/25 08:49 Meloxicam 7.5 Mg Tablet PO 15 mg DAILY JIMMY Administration Methimazole 5 mg 01/07/25 09:00 01/07/25 08:49 Methimazole 5 Mg Tab PO 5 mg BID JIMMY Administration Metronidazole 500 mg 01/06/25 22:25 01/07/25 08:52 Metronidazole 500 Mg Tablet PO 500 mg TID JIMMY Administration Midodrine 5 mg 01/06/25 22:20 01/07/25 08:49 Midodrine Hcl 2.5 Mg Tablet PO 5 mg TID JIMMY Administration Mirtazapine 15 mg 01/06/25 22:20 01/06/25 23:43 Mirtazapine 15 Mg Tablet PO 15 mg HS JIMMY Administration Ondansetron HCl 4 mg 01/06/25 15:33 Ondansetron Inj 4 Mg/2 Ml Vial IV PUSH Q4H PRN Nausea Polyethylene Glycol 17 gm 01/07/25 09:00 01/07/25 08:49 Polyethylene Glycol 3350 17 Gm Powd.Pack PO 17 gm DAILY JIMMY Administration Psyllium Hydrophilic Mucilloid 2 packet 01/07/25 09:00 01/07/25 08:49 Psyllium Sugar Free Powder Packet PO 2 packet BID JIMMY Administration Senna 8.6 mg 01/07/25 09:00 01/07/25 08:49 Sennosides 8.6 Mg Tablet PO 8.6 mg BID JIMMY Administration Sodium Chloride 10 ml 01/06/25 22:00 01/07/25 06:29 Central Line Flush IV PUSH 10 ml Q8HR JIMMY Administration Sodium Chloride 10 ml 01/06/25 16:42 Central Line Flush IV PUSH PRN PRN with TPN bag changes Sodium Chloride 20 ml 01/06/25 16:42 Central Line Flush IV PUSH PRN PRN after blood draws Tamsulosin HCl 0.4 mg 01/07/25 09:00 01/07/25 08:49 Tamsulosin Hcl 0.4 Mg Capsule PO 0.4 mg DAILY JIMMY Administration Trihexyphenidyl HCl 2 mg 01/06/25 22:25 01/07/25 09:37 Trihexyphenidyl Hcl 2 Mg Tablet PO 2 mg BID JIMMY Administration Vitamin B Complex/Folic Acid 1 cap 01/07/25 09:00 01/07/25 08:49 Vitamin B Cmplx/Vit C/Folic Ac 1 Capsule PO 1 cap DAILY JIMMY Administration Radiology Results: ITS Impressions Chest X-Ray 01/06/25 12:08 IMPRESSION: 1. . HMD PICC line tip at the cephalad superior vena cava. 2. Opacities in the medial aspect bilateral lower lung zones which could represent atelectasis or pneumonia. Abdomen/Pelvis CT 01/06/25 14:02 IMPRESSION: 1. Diffuse bladder wall thickening which may be due to outlet obstruction from enlarged prostate gland or cystitis. 2: Right lower lobe pneumonia. 3: Moderate retained fecal material throughout the colon with fecal impaction in the rectum. Venous Doppler Study 01/07/25 09:04 IMPRESSION: 1: No lower extremity deep venous thrombosis. Labs Labs: Laboratory Results - last 24 hr 01/06/25 01/06/25 01/06/25 11:56 14:30 16:30 WBC 26.2 H RBC 3.35 L Hgb 9.8 L Hct 30.3 L MCV 90.4 MCH 29.3 MCHC 32.3 RDW 16.2 H Plt Count 420 H MPV 9.3 Immature Gran % (Auto) 1.0 H Neut % (Auto) 87.4 H Lymph % (Auto) 6.4 L [place] % (Auto) 4.8 Eos % (Auto) 0.2 Baso % (Auto) 0.2 Lymph # (Auto) 1.67 [place] # (Auto) 1.3 H Eos # (Auto) 0.0 Baso # (Auto) 0.1 Abs Immat Gran (auto) 0.25 H Absolute Neuts (auto) 23.0 H Absolute Nucleated RBC 0.000 Band Neutrophils % Not Reportable Nucleated RBC % 0.0 Platelet Estimate Adequate Hypochromasia 1+ Schistocytes None seen Absolute Retic Percent Retic Immature Retic Fraction Retic Hgb Content PT INR APTT Sodium 136 L Potassium 3.6 Chloride 105 Carbon Dioxide 26 Anion Gap 5 BUN 40 H Creatinine 0.85 Estim Creat Clear Calc Not Reportable Estimated GFR > 60 Glucose 123 H Lactic Acid 1.5 Calcium 8.4 Iron TIBC % Saturation Ferritin Total Bilirubin 0.2 AST 85 H ALT 43 Alkaline Phosphatase 126 C-Reactive Protein Total Protein 5.9 L Albumin 2.4 L Vitamin B12 Folate Procalcitonin TSH (Reflex) Free T4 Total T3 Urine Color Dark yellow Urine Appearance Cloudy H Urine pH 5.0 Ur Specific [place] 1.024 Urine Protein 1+ H Urine Glucose (UA) Negative Urine Ketones Trace H Ur Blood (Man) 3+ H Urine Nitrate Positive H Urine Bilirubin Negative Urine Urobilinogen 1.0 Add Ur Microanalysis Reviewed Leukocyte Esterase Rfl 2+ H Urine RBC 51-100 H Urine WBC 21-50 H Ur Squamous Epith Cells None seen Urine Bacteria Rare Urine Casts 0-2 01/06/25 01/07/25 22:23 06:15 WBC 22.0 H RBC 3.04 L Hgb 8.9 L Hct 27.2 L MCV 89.5 MCH 29.3 MCHC 32.7 RDW 16.0 H Plt Count 405 H MPV 9.1 Immature Gran % (Auto) Neut % (Auto) Lymph % (Auto) [place] % (Auto) Eos % (Auto) Baso % (Auto) Lymph # (Auto) [place] # (Auto) Eos # (Auto) Baso # (Auto) Abs Immat Gran (auto) Absolute Neuts (auto) Absolute Nucleated RBC Band Neutrophils % Nucleated RBC % Platelet Estimate Hypochromasia Schistocytes Absolute Retic 0.02 Percent Retic 0.69 L Immature Retic Fraction 4.5 Retic Hgb Content 32.2 PT 49.2 H 52.0 H INR 5.8 H* 6.3 H* APTT 84.7 H Sodium 133 L Potassium 3.6 Chloride 103 Carbon Dioxide 27 Anion Gap 3 L BUN 29 H D Creatinine 0.76 Estim Creat Clear Calc 64 Estimated GFR > 60 Glucose 96 Lactic Acid Calcium 8.3 L Iron 20 L TIBC 119 L % Saturation 17 L Ferritin 293.00 H Total Bilirubin AST ALT Alkaline Phosphatase C-Reactive Protein 22.4 H Total Protein Albumin Vitamin B12 442.0 Folate 15.2 Procalcitonin 0.5 TSH (Reflex) 4.410 Free T4 1.38 Total T3 0.57 L Urine Color Urine Appearance Urine pH Ur Specific [place] Urine Protein Urine Glucose (UA) Urine Ketones Ur Blood (Man) Urine Nitrate Urine Bilirubin Urine Urobilinogen Add Ur Microanalysis Leukocyte Esterase Rfl Urine RBC Urine WBC Ur Squamous Epith Cells Urine Bacteria Urine Casts
--- NOTE | 2025-01-07 10:41 | PCSTNOTE ---
Please refer to the Bedside Swallow Evaluation in the EMR. Please note, silent aspiration cannot be ruled out at bedside. The pt was seen for a bedside swallow evaluation due to dx of RLL pneumonia. Pt has h/o schizophrenia and has difficulty with verbal expression. Pt followed simple commands. Vocal quality was clear; many missing teeth noted. Pt was repositioned upright in the bed and moaned and stated his back hurt with elevation of the bed & repositioning. With slow small increments of movement, ST was able to reposition and elevate HOB with no further complaint from pt. The pt was presented with thin liquids in 3ml and 5ml controlled amounts via a spoon, varying size amounts of pudding and applesauce, crumbled cracker into diet level 5 size, and then uncontrolled trials of thin liquids via a cup sip and a straw. The oral stages were found to be WFL; a trace residual was noted but the pt was able to I clear. Pharyngeal stage appeared to be intact as swallow appeared timely with adequate laryngeal elevation. Vocal quality remained clear and no overt s/s of aspiration were exhibited. Impression/Recommendations: functional swallow for a level 5 minced and moist diet & level 0 thin liquids; pt may require feeding assist; pt should be positioned upright, propped accordingly to deter any increased risk of aspiration. Concern that pt may resist upright positioning then proceed to be fed in reclined position. Aspiration risk is increased if pt is not positioned appropriately.
[2025-01-07] MEDS: ACETAMINOPHEN 325 MG TABLET 650 MG PO (11:54)
[2025-01-07 13:13] VITALS: BMI 19.9
[2025-01-07 14:00] VITALS: BP 108/63; PULSE 96; RESP 14; TEMP 36.2; O2SAT 100
[2025-01-07] MEDS: FERROUS SULFATE 325 MG TABLET DR PO (17:13)
[2025-01-07] MEDS: AZITHROMYCIN 500 MG/NS 250 ML 500 MG/250 ML BAG 250 MG IVPB (17:14)
[2025-01-07 20:49] LABS: Glucose Point of Care 107 mg/dl (65-105)
[2025-01-07 21:13] VITALS: BP 95/59; PULSE 109; RESP 18; TEMP 37.1; O2SAT 99
[2025-01-07] MEDS: MIRTAZAPINE 15 MG TABLET PO (21:21)
[2025-01-07] MEDS: SODIUM CHLORIDE 0.9% IV 1,000 ML 999 ML IV CONT (22:17)
[2025-01-07 23:35] VITALS: BP 127/83; PULSE 106
[2025-01-08 06:00] VITALS: BP 130/77; PULSE 102; RESP 18; TEMP 36.3; O2SAT 100
[2025-01-08 06:31] LABS: Hematocrit 26.7 % (42.0-52.0); Hemoglobin 8.9 g/dL (14.0-18.0); Mean Corpuscular HGB Conc 33.3 g/dl (32-36); Mean Corpuscular Hemoglobin 29.6 pg (26-34); Mean Corpuscular Volume 88.7 fl (80-100); Mean Platelet Volume 9.6 fl (7.4-10.4); Platelet Count Result 427 k/mm3 (150-375); Red Blood Count 3.01 M/mm3 (4.6-6.20); Red Cell Distribution Width 15.9 % (11.5-14.5); White Blood Count 28.4 K/mm3 (4.5-10.0)
[2025-01-08 06:39] LABS: INR 4.2; Prothrombin Time 38.7 Seconds (11.1-14.7)
[2025-01-08 06:46] LABS: Alanine Aminotransferase 31 U/L (6-50); Albumin Level 2.4 g/dL (3.5-5.1); Alkaline Phosphatase 115 U/L (38-126); Anion Gap 6 mmol/L (4-12); Aspartate Amino Transferase 40 U/L (17-59); Bilirubin,Total 0.2 mg/dL (0.2-1.3); Blood Urea Nitrogen 24 mg/dL (9-20); Calcium 8.1 mg/dL (8.4-10.2); Carbon Dioxide 25 mmol/L (22-30); Chloride 104 mmol/L (98-107); Estimated CRCL calculation 59 ml/min; Estimated Glomerular Filt Rate > 60; Glucose 82 mg/dL (65-110); Potassium 3.7 mmol/L (3.4-5.0); Sodium 135 mmol/L (137-145)
[2025-01-08 07:39] LABS: Glucose Point of Care 83 mg/dl (65-105)
[2025-01-08] MEDS: metroNIDAZOLE 500 MG TABLET PO ×3 (08:35→17:17)
[2025-01-08] MEDS: TAMSULOSIN HCL 0.4 MG CAPSULE PO (08:35)
[2025-01-08] MEDS: methiMAzole 5 MG TAB PO ×2 (08:35→17:17)
[2025-01-08] MEDS: SENNOSIDES 8.6 MG TABLET PO ×2 (08:35→17:17)
[2025-01-08] MEDS: MIDODRINE HCL 2.5 MG TABLET 5 MG PO ×3 (08:35→17:17)
[2025-01-08] MEDS: VITAMIN B CMPLX/VIT C/FOLIC AC 1 CAPSULE 1 CAP PO (08:35)
[2025-01-08] MEDS: ASPIRIN 81 MG CHEWABLE TABLET PO (08:35)
[2025-01-08] MEDS: TRIHEXYPHENIDYL HCL 2 MG TABLET PO ×2 (08:35→17:17)
[2025-01-08] MEDS: HYDROcodone/acetaminophen (*CRX) 5-325 MG TABLET 1 TAB PO ×2 (08:35→17:17)
[2025-01-08] MEDS: FERROUS SULFATE 325 MG TABLET DR PO ×2 (08:35→17:17)
[2025-01-08] MEDS: ARIPiprazole 10 MG TABLET PO (08:35)
[2025-01-08] MEDS: FINASTERIDE 5 MG TABLET PO (08:35)
[2025-01-08] MEDS: MELOXICAM 7.5 MG TABLET 15 MG PO (08:35)
--- NOTE | 2025-01-08 08:46 | P.CDI_ITS ---
CDI Query Clarification Request Clarification request - UTI has been documented, chronic indwelling nair catheter documented. Please clarify if UTI is: * due to/associated with chronic indwelling nair catheter * not due to/associated with chronic indwelling nair catheter * unable to determine The medical chart reflects the following: (3) UTI (urinary tract infection): Qualifiers: Hematuria presence: with hematuria Urinary tract infection type: acute cystitis Qualified Code(s): N30.01 - Acute cystitis with hematuria Code(s): N39.0 - Urinary tract infection, site not specified Status: Acute Assessment and Plan: - UA: cloudy appearance with 1+ protein, trace ketones, 3+ blood, positive nitrates, 2+ leukocytes, 51-100 RBC, 21-50 WBC, rare bacteria - Nair catheter in place with dark cloudy urine subsequently the patient's Nair catheter was exchanged in the ER - CT of the abdomen pelvis was obtained which showed possible cystitis versus chronic outlet obstruction. - UC obtained on 01/06, pending - no previous micro to reviewed - started on Rocephin on 01/07 <Tati Worley RN - Last Filed: 01/08/25 08:47> Clarified Diagnosis Clarified Diagnosis: Unable to determine <Janneth Parks PA-C - Last Filed: 01/08/25 09:17>
--- NOTE | 2025-01-08 09:42 | P.PNIM_ITS ---
Progress Note: A&P Assessment and Plan (1) Sepsis: Qualifiers: Sepsis acute organ dysfunction status: without acute organ dysfunction Sepsis type: sepsis due to unspecified organism Qualified Code(s): A41.9 - S epsis, unspecified organism Code(s): A41.9 - Sepsis, unspecified organism Status: Acute Assessment and Plan: Meets SIRS criteria: leukocytosis, tachycardia, and tachypnea in the setting of likely pneumonia and or UTI. - lactic acid: 1.5 - Received sepsis fluids in ED - blood cultures drawn on 01/06, NGTD - UA concerning for infection, culture obtained on 01/06: pseudomonas aeruginosa - CXR: HMD PICC line tip at the cephalad superior vena cava. Opacities in the medial aspect bilateral lower lung zones which could represent atelectasis or pneumonia. - Chest CT: right lower lobe pneumonia - See plan for pneumonia and UTI below Hemodynamically stable. (2) Pneumonia: Qualifiers: Laterality: right Lung location: lower lobe of lung Pneumonia type: due to unspecified organism Qualified Code(s): J18.9 - Pneumonia, unspecified organism Code(s): J18.9 - Pneumonia, unspecified organism Status: Acute Assessment and Plan: CXR: HMD PICC line tip at the cephalad superior vena cava. Opacities in the medial aspect bilateral lower lung zones which could represent atelectasis or pneumonia. Chest CT: right lower lobe pneumonia - started on CAP tx: azithromycin ceftriaxone on 01/06, Rocephin transitioned to cefepime 01/08 given pseudomonas on UCx - Viral PCR: negative for Flu/COVID/RSV - legionella, mycoplasma and pneumococcal pending - no supplemental O2 requirement - Monitor vital signs, I&Os, neuro status and patient is a fall risk - Follow WBC, serum electrolytes, temperature curves and cultures - Send sputum cultures (3) UTI (urinary tract infection): Qualifiers: Hematuria presence: with hematuria Urinary tract infection type: acute cystitis Qualified Code(s): N30.01 - Acute cystitis with hematuria Code(s): N39.0 - Urinary tract infection, site not specified Status: Acute Assessment and Plan: - UA: cloudy appearance with 1+ protein, trace ketones, 3+ blood, positive nitrates, 2+ leukocytes, 51-100 RBC, 21-50 WBC, rare bacteria - Potter catheter in place with dark cloudy urine subsequently the patient's Potter catheter was exchanged in the ER - CT of the abdomen pelvis was obtained which showed possible cystitis versus chronic outlet obstruction. - UC obtained on 01/06, pseudomonas aeruginosa with sensitivities pending - no previous micro to reviewed - started on Rocephin on 01/07, transitioned to cefepime 01/08 (4) Pressure ulcer: Qualifiers: Pressure injury location: unspecified location Pressure injury stage: unspecified pressure injury stage Qualified Code(s): L89.90 - Pressure ulcer of unspecified site, unspecified stage Code(s): L89.90 - Pressure ulcer of unspecified site, unspecified stage Status: Acute Assessment and Plan: According to documentation from senior care patient was admitted to senior care 11/16/2024 from [facility] for sepsis pneumonia sacral ulcers and right upper extremity DVT. 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 According to the ER note the patient's family was debating hospice versus surgical intervention for the patient's sacral wounds. Wound Care nurses felt that there is no need for further debridement of the patient's wounds in the appear to be in good condition. (5) Supratherapeutic INR: Code(s): R79.1 - Abnormal coagulation profile Status: Acute Assessment and Plan: INR 5.8 on admission, now downtrending at 4.2 on am labs Holding warfarin Continue to trend No signs of active bleeding (6) Constipation: Qualifiers: Constipation type: unspecified constipation type Qualified Code(s): K59.00 - Constipation, unspecified Code(s): K59.00 - Constipation, unspecified Status: Acute Assessment and Plan: Incidental finding of fecal impaction with moderate stool burden on imaging. Patient underwent digital rectal exam with disimpaction performed by ER provider. There was still stool retained above the level at could be disimpacted. Continue Metamucil BID, and senna BID Monitor I/O Per RN patient had a large bowel movement on 01/07. (7) Anemia: Qualifiers: Anemia type: other cause Other causes of anemia: chronic disease, other Qualified Code(s): D63.8 - Anemia in other chronic diseases classified else where Code(s): D64.9 - Anemia, unspecified Status: Acute Assessment and Plan: H/H 8.9/ 27.2 on admission, no signs of active bleeding - H/H remains stable at 8.9/26.7 on am labs - Iron panel: Iron 20, TIBC 119, % sat 17, Ferritin 293 - B12 and folate WNL - Started on iron supplementation (8) BPH (benign prostatic hyperplasia): Qualifiers: Lower urinary tract symptom detail: urinary retention Lower urinary tract symptom presence: symptoms present Qualified Code(s): N40.1 - Benign prostatic hyperplasia with lower urinary tract symptoms; R33.8 - Other retention of urine Code(s): N40.0 - Benign prostatic hyperplasia without lower urinary tract symptoms Status: Acute Assessment and Plan: Chronic, continue Flomax and finasteride Chronic Potter catheter in place, exchanged in the ED. (9) Hypotension due to hypovolemia: Code(s): E86.1 - Hypovolemia Status: Acute Assessment and Plan: Chronic, continue home midodrine 5 mg TID. Patient was mildly hypotensive in the ER likely related to some volume depletion, systolic blood pressures of 92/64. After fluid bolus patient's blood pressures normalized. Blood pressures remain stable at this time. Continue to monitor. (10) Severe protein-calorie malnutrition: Code(s): E43 - Unspecified severe protein-calorie malnutrition Status: Acute Assessment and Plan: Supplement per nutrition. Time Spent With Patient Time with patient: 25 - 35 minutes Subjective Date/time seen: 01/08/25 09:42 Interval history: 69 year old male with past medical history of schizophrenia and bipolar disorder, orthostatic hypotension, chronic constipation and BPH who presented to the hospital from [facility] nursing facility over concern for possible infection of chronic pressure ulcers. According to the ER physician note patient is chronically bed-bound baseline with flexion contractures of bilateral lower extremities. Patient is pleasant lying comfortably in bed. He remains AOx2 on assessment. He has no complaints at time of assessment denying chest pain, palpitations, shortness of breath, nausea/vomiting, pain/burning with urination, and abdominal pain. However unsure how accurate the review of systems is given patient's intermittent confusion. Review of Systems Review of Systems: Review of systems obtained however unsure how accurate given confusion. During assessment patient denied any complaints. ROS unobtainable: Yes unobtainable due to mental status Exam Narrative: AF HR 95 RR 16 Spo2 100 BP 110/74 General: male in no acute respiratory distress who is nontoxic appearing, lying semi recumbent in bed. HEENT: Normocephalic. Atraumatic. Extraocular movement intact. Sclera clear and anicteric. No facial asymmetry. Chest: Lungs are diminished to auscultation bilaterally. PICC line. CV: Heart was regular rate and rhythm. Abd: Abdomen was soft. Nontender. Nondistended. Positive bowel sounds. Ext: No clubbing, cyanosis, or edema. DP pulses bilaterally. Left hand edema extending to the wrist. Neuro: Patient is alert and oriented x2 (self, year). Speech is quiet and garbled. Objective Data Vital Signs Vital Signs: Vital Signs - 24 hr 01/07/25 14:00 01/07/25 20:50 01/07/25 21:13 Temperature 97.1 F L 98.7 F Pulse Rate 96 109 H Respiratory Rate 14 18 Blood Pressure 108/63 95/59 L Pulse Oximetry 100 99 Oxygen Delivery Room Air 01/07/25 23:35 01/08/25 06:00 Temperature 97.3 F L Pulse Rate 106 H 102 H Respiratory Rate 18 Blood Pressure 127/83 130/77 Pulse Oximetry 100 Oxygen Delivery Intake/Output Intake/Output: Intake & Output 01/05/25 01/06/25 01/07/25 01/08/25 23:59 23:59 23:59 23:59 Intake Total 1240 1979 430 Output Total 1250 900 Balance 1240 729 -470 Meds/Results Medications: Active Medications Generic Name Dose Route Start Last Admin Trade Name Quincyq PRN Reason Stop Dose Admin Acetaminophen 650 mg 01/06/25 15:33 01/07/25 11:54 Acetaminophen 325 Mg Tablet PO 650 mg Q4H PRN Administration Mild Pain (1-3) or Fever Hydrocodone Bitart/Acetaminophen 1 tab 01/06/25 22:25 01/08/25 08:35 Hydrocodone/Acetaminophen (*Crx) 5-325 Mg Tablet PO 1 tab BID JIMMY Administration Aripiprazole 10 mg 01/07/25 09:00 01/08/25 08:35 Aripiprazole 10 Mg Tablet PO 10 mg DAILY JIMMY Administration Aspirin 81 mg 01/07/25 09:00 01/08/25 08:35 Aspirin 81 Mg Chewable Tablet PO 81 mg DAILY JIMMY Administration Dextrose 12.5 gm 01/06/25 15:33 Dextrose 50% 25 Gm/50 Ml Syringe IV PUSH PRN PRN Hypoglycemia Protocol Ferrous Sulfate 325 mg 01/07/25 17:00 01/08/25 08:35 Ferrous Sulfate [address] PO 325 mg BID JIMMY Administration Finasteride 5 mg 01/07/25 09:00 01/08/25 08:35 Finasteride 5 Mg Tablet PO 5 mg DAILY JIMMY Administration Glucagon 1 mg 01/06/25 15:33 Glucagon For Inj 1 Mg Vial IM PRN PRN Hypoglycemia Protocol Glucose 15 gm 01/06/25 15:33 Glucose Oral Gel 15 Gm Of Glucse In 37.5 Gm Tube PO PRN PRN Hypoglycemia Protocol Ceftriaxone Sodium 1 gm in 50 mls @ 100 mls/hr 01/07/25 16:00 01/07/25 15:38 Rocephin 1 Gm/Ns 50 Ml IVPB Infused Q24H JIMMY Infusion Azithromycin 500 mg in 250 mls @ 250 mls/hr 01/07/25 17:00 01/07/25 18:14 Zithromax IVPB Infused Q24H JIMMY Infusion Dextrose 1,000 mls @ 100 mls/hr 01/06/25 15:33 Dextrose 5% 1,000 Ml IVPB PRN PRN Hypoglycemia Protocol Meloxicam 15 mg 01/07/25 09:00 01/08/25 08:35 Meloxicam 7.5 Mg Tablet PO 15 mg DAILY JIMMY Administration Methimazole 5 mg 01/07/25 09:00 01/08/25 08:35 Methimazole 5 Mg Tab PO 5 mg BID JIMMY Administration Metronidazole 500 mg 01/06/25 22:25 01/08/25 08:35 Metronidazole 500 Mg Tablet PO 500 mg TID JIMMY Administration Midodrine 5 mg 01/06/25 22:20 01/08/25 08:35 Midodrine Hcl 2.5 Mg Tablet PO 5 mg TID JIMMY Administration Mirtazapine 15 mg 01/06/25 22:20 01/07/25 21:21 Mirtazapine 15 Mg Tablet PO 15 mg HS JIMMY Administration Ondansetron HCl 4 mg 01/06/25 15:33 Ondansetron Inj 4 Mg/2 Ml Vial IV PUSH Q4H PRN Nausea Senna 8.6 mg 01/07/25 09:00 01/08/25 08:35 Sennosides 8.6 Mg Tablet PO 8.6 mg BID JIMMY Administration Sodium Chloride 10 ml 01/06/25 22:00 01/08/25 07:39 Central Line Flush IV PUSH Not Given Q8HR JIMMY Sodium Chloride 10 ml 01/06/25 16:42 Central Line Flush IV PUSH PRN PRN with TPN bag changes Sodium Chloride 20 ml 01/06/25 16:42 Central Line Flush IV PUSH PRN PRN after blood draws Tamsulosin HCl 0.4 mg 01/07/25 09:00 01/08/25 08:35 Tamsulosin Hcl 0.4 Mg Capsule PO 0.4 mg DAILY JIMMY Administration Trihexyphenidyl HCl 2 mg 01/06/25 22:25 01/08/25 08:35 Trihexyphenidyl Hcl 2 Mg Tablet PO 2 mg BID JIMMY Administration Vitamin B Complex/Folic Acid 1 cap 01/07/25 09:00 01/08/25 08:35 Vitamin B Cmplx/Vit C/Folic Ac 1 Capsule PO 1 cap DAILY JIMMY Administration Radiology Results: ITS Impressions Chest X-Ray 01/06/25 12:08 IMPRESSION: 1. . HMD PICC line tip at the cephalad superior vena cava. 2. Opacities in the medial aspect bilateral lower lung zones which could represent atelectasis or pneumonia. Abdomen/Pelvis CT 01/06/25 14:02 IMPRESSION: 1. Diffuse bladder wall thickening which may be due to outlet obstruction from enlarged prostate gland or cystitis. 2: Right lower lobe pneumonia. 3: Moderate retained fecal material throughout the colon with fecal impaction in the rectum. Venous Doppler Study 01/07/25 09:04 IMPRESSION: 1: No lower extremity deep venous thrombosis. Labs Labs: Laboratory Results - last 24 hr 01/07/25 01/08/25 01/08/25 20:17 06:14 07:33 WBC 28.4 H RBC 3.01 L Hgb 8.9 L Hct 26.7 L MCV 88.7 MCH 29.6 MCHC 33.3 RDW 15.9 H Plt Count 427 H MPV 9.6 PT 38.7 H D INR 4.2 Sodium 135 L Potassium 3.7 Chloride 104 Carbon Dioxide 25 Anion Gap 6 BUN 24 H Creatinine 0.83 Estim Creat Clear Calc 59 Estimated GFR > 60 Glucose 82 POC Capillary Glucose 107 H 83 Calcium 8.1 L Total Bilirubin 0.2 AST 40 ALT 31 Alkaline Phosphatase 115 Total Protein 6.0 L Albumin 2.4 L
[2025-01-08] MEDS: CEFEPIME 1 GM/NS 50 ML 1 GM/50 ML BAG IVPB ×2 (10:08→20:57)
[2025-01-08 11:33] LABS: Glucose Point of Care 105 mg/dl (65-105)
[2025-01-08] MEDS: CENTRAL LINE FLUSH 10 ML IV PUSH ×2 (13:28→21:02)
[2025-01-08 14:00] VITALS: BP 110/74; PULSE 95; RESP 16; TEMP 37.6; O2SAT 100
[2025-01-08 16:24] LABS: Glucose Point of Care 79 mg/dl (65-105)
[2025-01-08] MEDS: AZITHROMYCIN 500 MG/NS 250 ML 500 MG/250 ML BAG 250 MG IVPB (17:17)
[2025-01-08] MEDS: MIRTAZAPINE 15 MG TABLET PO (20:57)
[2025-01-08 21:00] LABS: Glucose Point of Care 112 mg/dl (65-105)
[2025-01-08 21:06] VITALS: BP 96/67; PULSE 91; RESP 18; TEMP 36.7; O2SAT 100
[2025-01-08] MEDS: SODIUM CHLORIDE 0.9% IV 1,000 ML 100 ML IV CONT (22:00)
[2025-01-08] MEDS: SODIUM CHLORIDE 0.9% IV 500 ML IV CONT (22:00)
[2025-01-09 05:10] VITALS: BP 124/79; PULSE 112; RESP 14; TEMP 38.2; O2SAT 100
[2025-01-09 05:16] VITALS: TEMP 38.2
[2025-01-09] MEDS: CENTRAL LINE FLUSH 20 ML IV PUSH (05:16)
[2025-01-09] MEDS: ACETAMINOPHEN 325 MG TABLET 650 MG PO (05:16)
[2025-01-09 06:15] LABS: Hematocrit 25.6 % (42.0-52.0); Hemoglobin 8.2 g/dL (14.0-18.0); Mean Corpuscular Hemoglobin 28.7 pg (26-34); Mean Corpuscular Volume 89.5 fl (80-100); Mean Platelet Volume 9.2 fl (7.4-10.4); Platelet Count Result 399 k/mm3 (150-375); Red Blood Count 2.86 M/mm3 (4.6-6.20); Red Cell Distribution Width 16.1 % (11.5-14.5); White Blood Count 21.7 K/mm3 (4.5-10.0)
[2025-01-09 06:26] LABS: Alanine Aminotransferase 30 U/L (6-50); Albumin Level 2.2 g/dL (3.5-5.1); Alkaline Phosphatase 103 U/L (38-126); Anion Gap 2 mmol/L (4-12); Aspartate Amino Transferase 37 U/L (17-59); Bilirubin,Total < 0.1 mg/dL (0.2-1.3); Blood Urea Nitrogen 18 mg/dL (9-20); Calcium 7.7 mg/dL (8.4-10.2); Carbon Dioxide 26 mmol/L (22-30); Chloride 106 mmol/L (98-107); Estimated CRCL calculation 72 ml/min; Estimated Glomerular Filt Rate > 60; Glucose 140 mg/dL (65-110); Potassium 3.7 mmol/L (3.4-5.0); Sodium 134 mmol/L (137-145); Total Protein 5.2 g/dL (6.3-8.2)
[2025-01-09 07:23] LABS: INR 4.3; Prothrombin Time 39.1 Seconds (11.1-14.7)
[2025-01-09 08:00] VITALS: O2SAT 100
[2025-01-09] MEDS: CEFEPIME 1 GM/NS 50 ML 1 GM/50 ML BAG IVPB ×2 (08:36→20:55)
[2025-01-09 08:37] VITALS: TEMP 37.6
[2025-01-09] MEDS: ARIPiprazole 10 MG TABLET PO (08:37)
[2025-01-09] MEDS: FERROUS SULFATE 325 MG TABLET DR PO ×2 (08:38→16:32)
[2025-01-09] MEDS: metroNIDAZOLE 500 MG TABLET PO ×3 (08:38→16:32)
[2025-01-09] MEDS: MELOXICAM 7.5 MG TABLET 15 MG PO (08:38)
[2025-01-09] MEDS: HYDROcodone/acetaminophen (*CRX) 5-325 MG TABLET 1 TAB PO ×2 (08:38→16:32)
[2025-01-09] MEDS: FINASTERIDE 5 MG TABLET PO (08:38)
[2025-01-09] MEDS: VITAMIN B CMPLX/VIT C/FOLIC AC 1 CAPSULE 1 CAP PO (08:38)
[2025-01-09] MEDS: SENNOSIDES 8.6 MG TABLET PO ×2 (08:38→16:32)
[2025-01-09] MEDS: TAMSULOSIN HCL 0.4 MG CAPSULE PO (08:38)
[2025-01-09] MEDS: MIDODRINE HCL 2.5 MG TABLET 5 MG PO ×3 (08:38→16:32)
[2025-01-09] MEDS: methiMAzole 5 MG TAB PO ×2 (08:38→16:32)
[2025-01-09] MEDS: ASPIRIN 81 MG CHEWABLE TABLET PO (08:38)
[2025-01-09] MEDS: TRIHEXYPHENIDYL HCL 2 MG TABLET PO ×2 (08:39→16:32)
--- NOTE | 2025-01-09 08:41 | PM.IMPN ---
Progress Note: A&P Assessment and Plan (1) Sepsis: Qualifiers: Sepsis acute organ dysfunction status: without acute organ dysfunction Sepsis type: sepsis due to unspecified organism Qualified Code(s): A41.9 - Sepsis, unspecified organism Code(s): A41.9 - Sepsis, unspecified organism Status: Acute Assessment and Plan: Meets SIRS criteria: leukocytosis, tachycardia, and tachypnea in the setting of likely pneumonia and or UTI. - lactic acid: 1.5 - Received sepsis fluids in ED - blood cultures drawn on 01/06, NGTD - UA concerning for infection, culture obtained on 01/06: pseudomonas aeruginosa - CXR: HMD PICC line tip at the cephalad superior vena cava. Opacities in the medial aspect bilateral lower lung zones which could represent atelectasis or pneumonia. - Chest CT: right lower lobe pneumonia - See plan for pneumonia and UTI below Developed a slight fever overnight of 100.7. Given tylenol and remains afebrile at this time. Otherwise hemodynamically stable. (2) Pneumonia: Qualifiers: Laterality: right Lung location: lower lobe of lung Pneumonia type: due to unspecified organism Qualified Code(s): J18.9 - Pneumonia, unspecified organism Code(s): J18.9 - Pneumonia, unspecified organism Status: Acute Assessment and Plan: CXR: HMD PICC line tip at the cephalad superior vena cava. Opacities in the medial aspect bilateral lower lung zones which could represent atelectasis or pneumonia. Chest CT: right lower lobe pneumonia - started on CAP tx: azithromycin ceftriaxone on 01/06, Rocephin transitioned to cefepime 01/08 given pseudomonas on UCx - Viral PCR: negative for Flu/COVID/RSV - legionella, mycoplasma and pneumococcal pending - no supplemental O2 requirement - Monitor vital signs, I&Os, neuro status and patient is a fall risk - Follow WBC, serum electrolytes, temperature curves and cultures - Send sputum cultures (3) UTI (urinary tract infection): Qualifiers: Hematuria presence: with hematuria Urinary tract infection type: acute cystitis Qualified Code(s): N30.01 - Acute cystitis with hematuria Code(s): N39.0 - Urinary tract infection, site not specified Status: Acute Assessment and Plan: - UA: cloudy appearance with 1+ protein, trace ketones, 3+ blood, positive nitrates, 2+ leukocytes, 51-100 RBC, 21-50 WBC, rare bacteria - Potter catheter in place with dark cloudy urine subsequently the patient's Potter catheter was exchanged in the ER - CT of the abdomen pelvis was obtained which showed possible cystitis versus chronic outlet obstruction. - UC obtained on 01/06, pseudomonas aeruginosa pansensitive - no previous micro to reviewed - started on Rocephin on 01/07, transitioned to cefepime 01/08 (4) Pressure ulcer: Qualifiers: Pressure injury location: unspecified location Pressure injury stage: unspecified pressure injury stage Qualified Code(s): L89.90 - Pressure ulcer of unspecified site, unspecified stage Code(s): L89.90 - Pressure ulcer of unspecified site, unspecified stage Status: Acute Assessment and Plan: According to documentation from long term patient was admitted to long term 11/16/2024 from [facility] for sepsis pneumonia sacral ulcers and right upper extremity DVT. 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 According to the ER note the patient's family was debating hospice versus surgical intervention for the patient's sacral wounds. Wound Care nurses felt that there is no need for further debridement of the patient's wounds in the appear to be in good condition. (5) Supratherapeutic INR: Code(s): R79.1 - Abnormal coagulation profile Status: Acute Assessment and Plan: INR 5.8 on admission, now downtrending at 4.3 on am labs Holding warfarin Continue to trend No signs of active bleeding (6) Constipation: Qualifiers: Constipation type: unspecified constipation type Qualified Code(s): K59.00 - Constipation, unspecified Code(s): K59.00 - Constipation, unspecified Status: Acute Assessment and Plan: Incidental finding of fecal impaction with moderate stool burden on imaging. Patient underwent digital rectal exam with disimpaction performed by ER provider. There was still stool retained above the level at could be disimpacted. Continue Metamucil BID, and senna BID Monitor I/O Patient now having BM. (7) Anemia: Qualifiers: Anemia type: other cause Other causes of anemia: chronic disease, other Qualified Code(s): D63.8 - Anemia in other chronic diseases classified elsewhere Code(s): D64.9 - Anemia, unspecified Status: Acute Assessment and Plan: H/H 8.9/ 27.2 on admission, no signs of active bleeding - H/H remains stable at 8.2/25.6 on am labs - Iron panel: Iron 20, TIBC 119, % sat 17, Ferritin 293 - B12 and folate WNL - Started on iron supplementation (8) BPH (benign prostatic hyperplasia): Qualifiers: Lower urinary tract symptom detail: urinary retention Lower urinary tract symptom presence: symptoms present Qualified Code(s): N40.1 - Benign prostatic hyperplasia with lower urinary tract symptoms; R33.8 - Other retention of urine Code(s): N40.0 - Benign prostatic hyperplasia without lower urinary tract symptoms Status: Acute Assessment and Plan: Chronic, continue Flomax and finasteride Chronic Potter catheter in place, exchanged in the ED. (9) Hypotension due to hypovolemia: Code(s): E86.1 - Hypovolemia Status: Acute Assessment and Plan: Chronic, continue home midodrine 5 mg TID. Patient was mildly hypotensive in the ER likely related to some volume depletion, systolic blood pressures of 92/64. After fluid bolus patient's blood pressures normalized. Blood pressures remain stable at this time. Continue to monitor. (10) Severe protein-calorie malnutrition: Code(s): E43 - Unspecified severe protein-calorie malnutrition Status: Acute Assessment and Plan: Supplement per nutrition. Time Spent With Patient Time with patient: 25 - 35 minutes Subjective Date/time seen: 01/09/25 08:41 Interval history: 69 year old male with past medical history of schizophrenia and bipolar disorder, orthostatic hypotension, chronic constipation and BPH who presented to the hospital from [facility] over concern for possible infection of chronic pressure ulcers. According to the ER physician note patient is chronically bed-bound baseline with flexion contractures of bilateral lower extremities. Patient is pleasant lying comfortably in bed. He remains alert and oriented x2 at time of assessment. He has no complaints at this time denying chest pain, shortness a breath, palpitations, nausea/vomiting, and abdominal pain. Review of Systems Review of Systems: All systems reviewed & are unremarkable except as noted in HPI and below Exam Narrative: AF HR 111 RR 18 SpO2 100 BP 139/84 General: male in no acute respiratory distress who is nontoxic appearing, lying semi recumbent in bed. HEENT: Normocephalic. Atraumatic. Extraocular movement intact. Sclera clear and anicteric. No facial asymmetry. Chest: Lungs are diminished to auscultation bilaterally. PICC line. CV: Heart was regular rate and rhythm. Abd: Abdomen was soft. Nontender. Nondistended. Positive bowel sounds. Ext: No clubbing, cyanosis, or edema. DP pulses bilaterally. Left hand edema extending to the wrist. Neuro: Patient is alert and oriented x2 (self, year). Speech is quiet and garbled. Objective Data Vital Signs Vital Signs: Vital Signs - 24 hr 01/08/25 08:45 01/08/25 14:00 01/08/25 20:00 Temperature 99.6 F Pulse Rate 95 Respiratory Rate 16 Blood Pressure 110/74 Pulse Oximetry 100 Oxygen Delivery Room Air Room Air 01/08/25 21:06 01/09/25 05:10 01/09/25 05:16 Temperature 98.1 F 100.7 F H 100.7 F H Pulse Rate 91 112 H Respiratory Rate 18 14 Blood Pressure 96/67 L 124/79 Pulse Oximetry 100 100 Oxygen Delivery 01/09/25 08:37 Temperature 99.6 F Pulse Rate Respiratory Rate Blood Pressure Pulse Oximetry Oxygen Delivery Intake/Output Intake/Output: Intake & Output 01/06/25 01/07/25 01/08/25 01/09/25 23:59 23:59 23:59 23:59 Intake Total 1240 1979 1285 510 Output Total 1250 1250 825 Balance 1240 729 35 -315 Meds/Results Medications: Active Medications Generic Name Dose Route Start Last Admin Trade Name Freq PRN Reason Stop Dose Admin Acetaminophen 650 mg 01/06/25 15:33 01/09/25 05:16 Acetaminophen 325 Mg Tablet PO 650 mg Q4H PRN Administration Mild Pain (1-3) or Fever Hydrocodone Bitart/Acetaminophen 1 tab 01/06/25 22:25 01/09/25 08:38 Hydrocodone/Acetaminophen (*Crx) 5-325 Mg Tablet PO 1 tab BID JIMMY Administration Aripiprazole 10 mg 01/07/25 09:00 01/09/25 08:37 Aripiprazole 10 Mg Tablet PO 10 mg DAILY JIMMY Administration Aspirin 81 mg 01/07/25 09:00 01/09/25 08:38 Aspirin 81 Mg Chewable Tablet PO 81 mg DAILY JIMMY Administration Dextrose 12.5 gm 01/06/25 15:33 Dextrose 50% 25 Gm/50 Ml Syringe IV PUSH PRN PRN Hypoglycemia Protocol Ferrous Sulfate 325 mg 01/07/25 17:00 01/09/25 08:38 Ferrous Sulfate [address] PO 325 mg BID JIMMY Administration Finasteride 5 mg 01/07/25 09:00 01/09/25 08:38 Finasteride 5 Mg Tablet PO 5 mg DAILY JIMMY Administration Glucagon 1 mg 01/06/25 15:33 Glucagon For Inj 1 Mg Vial IM PRN PRN Hypoglycemia Protocol Glucose 15 gm 01/06/25 15:33 Glucose Oral Gel 15 Gm Of Glucse In 37.5 Gm Tube PO PRN PRN Hypoglycemia Protocol Azithromycin 500 mg in 250 mls @ 250 mls/hr 01/07/25 17:00 01/08/25 17:17 Zithromax IVPB 250 mls/hr Q24H JIMMY Administration Dextrose 1,000 mls @ 100 mls/hr 01/06/25 15:33 Dextrose 5% 1,000 Ml IVPB PRN PRN Hypoglycemia Protocol Cefepime HCl 1 gm in 50 mls @ 100 mls/hr 01/08/25 09:45 01/09/25 08:36 Maxipime 1 Gm/Ns 50 Ml IVPB 100 mls/hr Q12HR JIMMY Administration Meloxicam 15 mg 01/07/25 09:00 01/09/25 08:38 Meloxicam 7.5 Mg Tablet PO 15 mg DAILY JIMMY Administration Methimazole 5 mg 01/07/25 09:00 01/09/25 08:38 Methimazole 5 Mg Tab PO 5 mg BID JIMMY Administration Metronidazole 500 mg 01/06/25 22:25 01/09/25 08:38 Metronidazole 500 Mg Tablet PO 500 mg TID JIMMY Administration Midodrine 5 mg 01/06/25 22:20 01/09/25 08:38 Midodrine Hcl 2.5 Mg Tablet PO 5 mg TID JIMMY Administration Mirtazapine 15 mg 01/06/25 22:20 01/08/25 20:57 Mirtazapine 15 Mg Tablet PO 15 mg HS JIMMY Administration Ondansetron HCl 4 mg 01/06/25 15:33 Ondansetron Inj 4 Mg/2 Ml Vial IV PUSH Q4H PRN Nausea Senna 8.6 mg 01/07/25 09:00 01/09/25 08:38 Sennosides 8.6 Mg Tablet PO 8.6 mg BID JIMMY Administration Sodium Chloride 10 ml 01/06/25 22:00 01/09/25 05:05 Central Line Flush IV PUSH Not Given Q8HR JIMMY Sodium Chloride 10 ml 01/06/25 16:42 Central Line Flush IV PUSH PRN PRN with TPN bag changes Sodium Chloride 20 ml 01/06/25 16:42 01/09/25 05:16 Central Line Flush IV PUSH 20 ml PRN PRN Administration after blood draws Tamsulosin HCl 0.4 mg 01/07/25 09:00 01/09/25 08:38 Tamsulosin Hcl 0.4 Mg Capsule PO 0.4 mg DAILY JIMMY Administration Trihexyphenidyl HCl 2 mg 01/06/25 22:25 01/09/25 08:39 Trihexyphenidyl Hcl 2 Mg Tablet PO 2 mg BID JIMMY Administration Vitamin B Complex/Folic Acid 1 cap 01/07/25 09:00 01/09/25 08:38 Vitamin B Cmplx/Vit C/Folic Ac 1 Capsule PO 1 cap DAILY JIMMY Administration Radiology Results: ITS Impressions Chest X-Ray 01/06/25 12:08 IMPRESSION: 1. . HMD PICC line tip at the cephalad superior vena cava. 2. Opacities in the medial aspect bilateral lower lung zones which could represent atelectasis or pneumonia. Abdomen/Pelvis CT 01/06/25 14:02 IMPRESSION: 1. Diffuse bladder wall thickening which may be due to outlet obstruction from enlarged prostate gland or cystitis. 2: Right lower lobe pneumonia. 3: Moderate retained fecal material throughout the colon with fecal impaction in the rectum. Venous Doppler Study 01/08/25 17:36 IMPRESSION: Partial compression of the cephalic vein which may indicate thrombosis. Axillary vein is not evaluated. Other veins are unremarkable. Labs Labs: Laboratory Results - last 24 hr 01/08/25 01/08/25 01/08/25 11:27 16:21 20:57 WBC RBC Hgb Hct MCV MCH MCHC RDW Plt Count MPV PT INR Sodium Potassium Chloride Carbon Dioxide Anion Gap BUN Creatinine Estim Creat Clear Calc Estimated GFR Glucose POC Capillary Glucose 105 79 112 H Calcium Total Bilirubin AST ALT Alkaline Phosphatase Total Protein Albumin 01/09/25 01/09/25 05:23 06:45 WBC 21.7 H RBC 2.86 L Hgb 8.2 L Hct 25.6 L MCV 89.5 MCH 28.7 MCHC 32.0 RDW 16.1 H Plt Count 399 H MPV 9.2 PT 39.1 H INR 4.3 Sodium 134 L Potassium 3.7 Chloride 106 Carbon Dioxide 26 Anion Gap 2 L BUN 18 Creatinine 0.67 L Estim Creat Clear Calc 72 Estimated GFR > 60 Glucose 140 H POC Capillary Glucose Calcium 7.7 L Total Bilirubin < 0.1 L AST 37 ALT 30 Alkaline Phosphatase 103 Total Protein 5.2 L Albumin 2.2 L
[2025-01-09] MEDS: CENTRAL LINE FLUSH 10 ML IV PUSH ×2 (12:18→20:55)
[2025-01-09 15:09] VITALS: BP 139/84; PULSE 111; RESP 18; TEMP 37.2; O2SAT 100
[2025-01-09 15:58] LABS: Pneumococcal Antigen Urine NOT DETECTED
[2025-01-09] MEDS: AZITHROMYCIN 500 MG/NS 250 ML 500 MG/250 ML BAG 250 MG IVPB (16:31)
[2025-01-09 18:02] LABS: Legionella pneumophila Ag Ur NOT DETECTED
[2025-01-09 20:39] VITALS: BP 106/66; PULSE 96; RESP 16; TEMP 36.6; O2SAT 100
[2025-01-09] MEDS: MIRTAZAPINE 15 MG TABLET PO (20:55)
[2025-01-10] MEDS: CENTRAL LINE FLUSH 10 ML IV PUSH ×3 (05:37→21:01)
[2025-01-10] MEDS: CENTRAL LINE FLUSH 20 ML IV PUSH (05:37)
[2025-01-10 05:58] LABS: Hematocrit 27.5 % (42.0-52.0); Mean Corpuscular HGB Conc 32.7 g/dl (32-36); Mean Corpuscular Volume 88.7 fl (80-100); Mean Platelet Volume 9.1 fl (7.4-10.4); Platelet Count Result 490 k/mm3 (150-375); White Blood Count 22.1 K/mm3 (4.5-10.0)
[2025-01-10 06:00] VITALS: BP 125/80; PULSE 98; RESP 20; TEMP 36.2; O2SAT 100
[2025-01-10 06:10] LABS: Alanine Aminotransferase 30 U/L (6-50); Albumin Level 2.3 g/dL (3.5-5.1); Alkaline Phosphatase 116 U/L (38-126); Anion Gap 2 mmol/L (4-12); Aspartate Amino Transferase 38 U/L (17-59); Bilirubin,Total 0.2 mg/dL (0.2-1.3); Blood Urea Nitrogen 18 mg/dL (9-20); Calcium 8.2 mg/dL (8.4-10.2); Carbon Dioxide 26 mmol/L (22-30); Chloride 108 mmol/L (98-107); Estimated CRCL calculation 74 ml/min; Estimated Glomerular Filt Rate > 60; Glucose 87 mg/dL (65-110); Potassium 3.9 mmol/L (3.4-5.0); Sodium 136 mmol/L (137-145); Total Protein 5.6 g/dL (6.3-8.2)
[2025-01-10 06:27] LABS: INR 3.4; Prothrombin Time 32.9 Seconds (11.1-14.7)
--- NOTE | 2025-01-10 06:29 | PC.NURSE ---
On 01/10/25, the graduate nurse, Mirta Christensen, provided care and completed [facility] documentation on this patient. I have reviewed the student's documentation and agree with the findings.
[2025-01-10 08:10] LABS: Glucose Point of Care 82 mg/dl (65-105)
--- NOTE | 2025-01-10 09:34 | PM.IMPN ---
Progress Note: A&P Assessment and Plan (1) Sepsis: Qualifiers: Sepsis acute organ dysfunction status: without acute organ dysfunction Sepsis type: sepsis due to unspecified organism Qualified Code(s): A41.9 - Sepsis, unspecified organism Code(s): A41.9 - Sepsis, unspecified organism Status: Acute Assessment and Plan: Meets SIRS criteria: leukocytosis, tachycardia, and tachypnea in the setting of likely pneumonia and or UTI. - lactic acid: 1.5 - Received sepsis fluids in ED - blood cultures drawn on 01/06, NGTD - UA concerning for infection, culture obtained on 01/06: pseudomonas aeruginosa - CXR: HMD PICC line tip at the cephalad superior vena cava. Opacities in the medial aspect bilateral lower lung zones which could represent atelectasis or pneumonia. - Chest CT: right lower lobe pneumonia - See plan for pneumonia and UTI below Hemodynamically stable. WBC remains elevated in the 20s despite antibiotics. Patient now complaining of abdominal pain and has tenderness on palpation. Prior CT abdomen pelvis showed large fecal impaction. Patient has been having bowel movements per charting however per RN they have been soft/liquid stools and could possibly be seeping around the stool ball. Will obtain another CT to further assess. (2) Pneumonia: Qualifiers: Laterality: right Lung location: lower lobe of lung Pneumonia type: due to unspecified organism Qualified Code(s): J18.9 - Pneumonia, unspecified organism Code(s): J18.9 - Pneumonia, unspecified organism Status: Acute Assessment and Plan: CXR: HMD PICC line tip at the cephalad superior vena cava. Opacities in the medial aspect bilateral lower lung zones which could represent atelectasis or pneumonia. Chest CT: right lower lobe pneumonia - started on CAP tx: azithromycin ceftriaxone and Flagyl on 01/06, Rocephin transitioned to cefepime 01/08 given pseudomonas on UCx - Viral PCR: Flu/COVID/RSV ordered - legionella and pneumococcal negative, mycoplasma pending - no supplemental O2 requirement - Monitor vital signs, I&Os, neuro status and patient is a fall risk - Follow WBC, serum electrolytes, temperature curves and cultures - Send sputum cultures (3) UTI (urinary tract infection): Qualifiers: Hematuria presence: with hematuria Urinary tract infection type: acute cystitis Qualified Code(s): N30.01 - Acute cystitis with hematuria Code(s): N39.0 - Urinary tract infection, site not specified Status: Acute Assessment and Plan: - UA: cloudy appearance with 1+ protein, trace ketones, 3+ blood, positive nitrates, 2+ leukocytes, 51-100 RBC, 21-50 WBC, rare bacteria - Potter catheter in place with dark cloudy urine subsequently the patient's Potter catheter was exchanged in the ER - CT of the abdomen pelvis was obtained which showed possible cystitis versus chronic outlet obstruction. - UC obtained on 01/06, pseudomonas aeruginosa pansensitive - no previous micro to reviewed - started on Rocephin on 01/07, transitioned to cefepime 01/08 (4) Pressure ulcer: Qualifiers: Pressure injury location: unspecified location Pressure injury stage: unspecified pressure injury stage Qualified Code(s): L89.90 - Pressure ulcer of unspecified site, unspecified stage Code(s): L89.90 - Pressure ulcer of unspecified site, unspecified stage Status: Acute Assessment and Plan: According to documentation from [facility] from [facility] for sepsis pneumonia sacral ulcers and right upper extremity DVT. 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 According to the ER note the patient's family was debating hospice versus surgical intervention for the patient's sacral wounds. Wound Care nurses felt that there is no need for further debridement of the patient's wounds in the appear to be in good condition. (5) Supratherapeutic INR: Code(s): R79.1 - Abnormal coagulation profile Status: Acute Assessment and Plan: INR 5.8 on admission, now downtrending at 3.4 on am labs Holding warfarin Continue to trend No signs of active bleeding (6) Constipation: Qualifiers: Constipation type: unspecified constipation type Qualified Code(s): K59.00 - Constipation, unspecified Code(s): K59.00 - Constipation, unspecified Status: Acute Assessment and Plan: Incidental finding of fecal impaction with moderate stool burden on imaging. Patient underwent digital rectal exam with disimpaction performed by ER provider. There was still stool retained above the level at could be disimpacted. Continue Metamucil BID, and senna BID Monitor I/O WBC remains elevated in the 20s despite antibiotics. Patient now complaining of abdominal pain and has tenderness on palpation. Prior CT abdomen pelvis showed large fecal impaction. Patient has been having bowel movements per charting however per RN they have been soft/liquid stools and could possibly be seeping around the stool ball. Will obtain another CT to further assess. (7) Anemia: Qualifiers: Anemia type: other cause Other causes of anemia: chronic disease, other Qualified Code(s): D63.8 - Anemia in other chronic diseases classified elsewhere Code(s): D64.9 - Anemia, unspecified Status: Acute Assessment and Plan: H/H 8.9/ 27.2 on admission, no signs of active bleeding - H/H remains stable at 9/27.5 on am labs - Iron panel: Iron 20, TIBC 119, % sat 17, Ferritin 293 - B12 and folate WNL - Started on iron supplementation (8) BPH (benign prostatic hyperplasia): Qualifiers: Lower urinary tract symptom detail: urinary retention Lower urinary tract symptom presence: symptoms present Qualified Code(s): N40.1 - Benign prostatic hyperplasia with lower urinary tract symptoms; R33.8 - Other retention of urine Code(s): N40.0 - Benign prostatic hyperplasia without lower urinary tract symptoms Status: Acute Assessment and Plan: Chronic, continue Flomax and finasteride Chronic Potter catheter in place, exchanged in the ED. (9) Hypotension due to hypovolemia: Code(s): E86.1 - Hypovolemia Status: Acute Assessment and Plan: Chronic, continue home midodrine 5 mg TID. Patient was mildly hypotensive in the ER likely related to some volume depletion, systolic blood pressures of 92/64. After fluid bolus patient's blood pressures normalized. Blood pressures remain stable at this time. Continue to monitor. (10) Severe protein-calorie malnutrition: Code(s): E43 - Unspecified severe protein-calorie malnutrition Status: Acute Assessment and Plan: Supplement per nutrition. Subjective Date/time seen: 01/10/25 09:34 Interval history: 69 year old male with past medical history of schizophrenia and bipolar disorder, orthostatic hypotension, chronic constipation and BPH who presented to the hospital from [facility] over concern for possible infection of chronic pressure ulcers. According to the ER physician note patient is chronically bed-bound baseline with flexion contractures of bilateral lower extremities. Patient is pleasant lying comfortably in bed. He is alert and oriented x2 at time of assessment. He states he has no complaints denying chest pain, shortness a breath, palpitations, nausea/vomiting, abdominal pain. Despite denying any abdominal pain he is diffusely tender throughout on palpation. Review of Systems Review of Systems: All systems reviewed & are unremarkable except as noted in HPI and below Exam Narrative: AF HR 98 RR 20 SPO2 100 BP 125/80 General: male in no acute respiratory distress who is nontoxic appearing, lying semi recumbent in bed. HEENT: Normocephalic. Atraumatic. Extraocular movement intact. Sclera clear and anicteric. No facial asymmetry. Chest: Lungs are diminished to auscultation bilaterally. PICC line. CV: Heart was regular rate and rhythm. Abd: Abdomen was soft. Tender throughout, no guarding. Nondistended. Positive bowel sounds. Ext: No clubbing, cyanosis, or edema. DP pulses bilaterally. Left hand edema extending to the wrist. Neuro: Patient is alert and oriented x2 (self, year). Speech is quiet and garbled. Objective Data Vital Signs Vital Signs: Vital Signs - 24 hr 01/09/25 15:09 01/09/25 20:39 01/09/25 21:00 Temperature 98.9 F 97.9 F Pulse Rate 111 H 96 Respiratory Rate 18 16 Blood Pressure 139/84 106/66 Pulse Oximetry 100 100 Oxygen Delivery Room Air 01/10/25 06:00 Temperature 97.1 F L Pulse Rate 98 Respiratory Rate 20 Blood Pressure 125/80 Pulse Oximetry 100 Oxygen Delivery Intake/Output Intake/Output: Intake & Output 01/07/25 01/08/25 01/09/25 01/10/25 23:59 23:59 23:59 23:59 Intake Total 1979 1535 900 540 Output Total 1250 1250 1225 725 Balance 729 818 -325 -311 Meds/Results Medications: Active Medications Generic Name Dose Route Start Last Admin Trade Name Freq PRN Reason Stop Dose Admin Acetaminophen 650 mg 01/06/25 15:33 01/09/25 05:16 Acetaminophen 325 Mg Tablet PO 650 mg Q4H PRN Administration Mild Pain (1-3) or Fever Hydrocodone Bitart/Acetaminophen 1 tab 01/06/25 22:25 01/09/25 16:32 Hydrocodone/Acetaminophen (*Crx) 5-325 Mg Tablet PO 1 tab BID JIMMY Administration Aripiprazole 10 mg 01/07/25 09:00 01/09/25 08:37 Aripiprazole 10 Mg Tablet PO 10 mg DAILY JIMMY Administration Aspirin 81 mg 01/07/25 09:00 01/09/25 08:38 Aspirin 81 Mg Chewable Tablet PO 81 mg DAILY JIMMY Administration Dextrose 12.5 gm 01/06/25 15:33 Dextrose 50% 25 Gm/50 Ml Syringe IV PUSH PRN PRN Hypoglycemia Protocol Ferrous Sulfate 325 mg 01/07/25 17:00 01/09/25 16:32 Ferrous Sulfate [address] PO 325 mg BID JIMMY Administration Finasteride 5 mg 01/07/25 09:00 01/09/25 08:38 Finasteride 5 Mg Tablet PO 5 mg DAILY JIMMY Administration Glucagon 1 mg 01/06/25 15:33 Glucagon For Inj 1 Mg Vial IM PRN PRN Hypoglycemia Protocol Glucose 15 gm 01/06/25 15:33 Glucose Oral Gel 15 Gm Of Glucse In 37.5 Gm Tube PO PRN PRN Hypoglycemia Protocol Azithromycin 500 mg in 250 mls @ 250 mls/hr 01/07/25 17:00 01/09/25 16:31 Zithromax IVPB 250 mls/hr Q24H JIMMY Administration Dextrose 1,000 mls @ 100 mls/hr 01/06/25 15:33 Dextrose 5% 1,000 Ml IVPB PRN PRN Hypoglycemia Protocol Cefepime HCl 1 gm in 50 mls @ 100 mls/hr 01/08/25 09:45 01/09/25 21:25 Maxipime 1 Gm/Ns 50 Ml IVPB Infused Q12HR JIMMY Infusion Meloxicam 15 mg 01/07/25 09:00 01/09/25 08:38 Meloxicam 7.5 Mg Tablet PO 15 mg DAILY JIMMY Administration Methimazole 5 mg 01/07/25 09:00 01/09/25 16:32 Methimazole 5 Mg Tab PO 5 mg BID JIMMY Administration Metronidazole 500 mg 01/06/25 22:25 01/09/25 16:32 Metronidazole 500 Mg Tablet PO 500 mg TID JIMMY Administration Midodrine 5 mg 01/06/25 22:20 01/09/25 16:32 Midodrine Hcl 2.5 Mg Tablet PO 5 mg TID JIMMY Administration Mirtazapine 15 mg 01/06/25 22:20 01/09/25 20:55 Mirtazapine 15 Mg Tablet PO 15 mg HS JIMMY Administration Ondansetron HCl 4 mg 01/06/25 15:33 Ondansetron Inj 4 Mg/2 Ml Vial IV PUSH Q4H PRN Nausea Senna 8.6 mg 01/07/25 09:00 01/09/25 16:32 Sennosides 8.6 Mg Tablet PO 8.6 mg BID JIMMY Administration Sodium Chloride 10 ml 01/06/25 22:00 01/10/25 05:37 Central Line Flush IV PUSH 10 ml Q8HR JIMMY Administration Sodium Chloride 10 ml 01/06/25 16:42 Central Line Flush IV PUSH PRN PRN with TPN bag changes Sodium Chloride 20 ml 01/06/25 16:42 01/10/25 05:37 Central Line Flush IV PUSH 20 ml PRN PRN Administration after blood draws Tamsulosin HCl 0.4 mg 01/07/25 09:00 01/09/25 08:38 Tamsulosin Hcl 0.4 Mg Capsule PO 0.4 mg DAILY JIMMY Administration Trihexyphenidyl HCl 2 mg 01/06/25 22:25 01/09/25 16:32 Trihexyphenidyl Hcl 2 Mg Tablet PO 2 mg BID JIMMY Administration Vitamin B Complex/Folic Acid 1 cap 01/07/25 09:00 01/09/25 08:38 Vitamin B Cmplx/Vit C/Folic Ac 1 Capsule PO 1 cap DAILY JIMMY Administration Radiology Results: ITS Impressions Chest X-Ray 01/06/25 12:08 IMPRESSION: 1. . HMD PICC line tip at the cephalad superior vena cava. 2. Opacities in the medial aspect bilateral lower lung zones which could represent atelectasis or pneumonia. Abdomen/Pelvis CT 01/06/25 14:02 IMPRESSION: 1. Diffuse bladder wall thickening which may be due to outlet obstruction from enlarged prostate gland or cystitis. 2: Right lower lobe pneumonia. 3: Moderate retained fecal material throughout the colon with fecal impaction in the rectum. Venous Doppler Study 01/08/25 17:36 IMPRESSION: Partial compression of the cephalic vein which may indicate thrombosis. Axillary vein is not evaluated. Other veins are unremarkable. Labs Labs: Laboratory Results - last 24 hr 01/07/25 01/10/2525 04:16 05:35 08:02 WBC 22.1 H RBC 3.10 L Hgb 9.0 L Hct 27.5 L MCV 88.7 MCH 29.0 MCHC 32.7 RDW 16.0 H Plt Count 490 H MPV 9.1 PT 32.9 H INR 3.4 Sodium 136 L Potassium 3.9 Chloride 108 H Carbon Dioxide 26 Anion Gap 2 L BUN 18 Creatinine 0.65 L Estim Creat Clear Calc 74 Estimated GFR > 60 Glucose 87 POC Capillary Glucose 82 Calcium 8.2 L Total Bilirubin 0.2 AST 38 ALT 30 Alkaline Phosphatase 116 Total Protein 5.6 L Albumin 2.3 L Ur L.pneumophila Ag Not detected Urine Pneumococcal Ag Not detected
[2025-01-10] MEDS: ARIPiprazole 10 MG TABLET PO (09:48)
[2025-01-10] MEDS: FINASTERIDE 5 MG TABLET PO (09:48)
[2025-01-10] MEDS: MELOXICAM 7.5 MG TABLET 15 MG PO (09:48)
[2025-01-10] MEDS: metroNIDAZOLE 500 MG TABLET PO ×3 (09:48→16:55)
[2025-01-10] MEDS: FERROUS SULFATE 325 MG TABLET DR PO ×2 (09:48→16:55)
[2025-01-10] MEDS: SENNOSIDES 8.6 MG TABLET PO ×2 (09:49→16:55)
[2025-01-10] MEDS: TAMSULOSIN HCL 0.4 MG CAPSULE PO (09:49)
[2025-01-10] MEDS: methiMAzole 5 MG TAB PO ×2 (09:49→16:55)
[2025-01-10] MEDS: ASPIRIN 81 MG CHEWABLE TABLET PO (09:49)
[2025-01-10] MEDS: TRIHEXYPHENIDYL HCL 2 MG TABLET PO ×2 (09:49→16:55)
[2025-01-10] MEDS: HYDROcodone/acetaminophen (*CRX) 5-325 MG TABLET 1 TAB PO ×2 (09:49→16:55)
[2025-01-10] MEDS: CEFEPIME 1 GM/NS 50 ML 1 GM/50 ML BAG IVPB ×2 (09:49→21:01)
[2025-01-10] MEDS: MIDODRINE HCL 2.5 MG TABLET 5 MG PO ×3 (09:49→16:55)
[2025-01-10] MEDS: VITAMIN B CMPLX/VIT C/FOLIC AC 1 CAPSULE 1 CAP PO (09:49)
[2025-01-10 12:02] LABS: Glucose Point of Care 135 mg/dl (65-105)
[2025-01-10 14:00] VITALS: BP 110/71; PULSE 110; RESP 18; TEMP 36.5; O2SAT 100
[2025-01-10 16:15] LABS: Influenza A QL RT-PCR Negative (Negative); Influenza B QL RT-PCR Negative (Negative); RSV RNA, RT-PCR Negative (Negative); SARS-CoV-2 RNA PCR Negative (Negative)
[2025-01-10 16:33] LABS: Glucose Point of Care 87 mg/dl (65-105)
[2025-01-10] MEDS: AZITHROMYCIN 500 MG/NS 250 ML 500 MG/250 ML BAG 250 MG IVPB (17:38)
[2025-01-10 20:53] VITALS: BP 150/82; PULSE 95; RESP 20; TEMP 37.1; O2SAT 97
[2025-01-10] MEDS: MIRTAZAPINE 15 MG TABLET PO (21:01)
[2025-01-11] MEDS: CENTRAL LINE FLUSH 10 ML IV PUSH ×3 (05:00→22:32)
[2025-01-11 05:13] LABS: Hemoglobin 8.6 g/dL (14.0-18.0); Mean Corpuscular HGB Conc 33.1 g/dl (32-36); Mean Corpuscular Hemoglobin 28.9 pg (26-34); Mean Corpuscular Volume 87.2 fl (80-100); Platelet Count Result 521 k/mm3 (150-375); Red Blood Count 2.98 M/mm3 (4.6-6.20); Red Cell Distribution Width 16.2 % (11.5-14.5); White Blood Count 22.6 K/mm3 (4.5-10.0)
[2025-01-11 05:19] LABS: Alanine Aminotransferase 26 U/L (6-50); Albumin Level 2.3 g/dL (3.5-5.1); Alkaline Phosphatase 106 U/L (38-126); Anion Gap 2 mmol/L (4-12); Aspartate Amino Transferase 32 U/L (17-59); Bilirubin,Total 0.2 mg/dL (0.2-1.3); Blood Urea Nitrogen 18 mg/dL (9-20); Calcium 8.2 mg/dL (8.4-10.2); Carbon Dioxide 27 mmol/L (22-30); Chloride 106 mmol/L (98-107); Estimated CRCL calculation 75 ml/min; Estimated Glomerular Filt Rate > 60; Glucose 85 mg/dL (65-110); Sodium 135 mmol/L (137-145); Total Protein 5.5 g/dL (6.3-8.2)
[2025-01-11 05:34] VITALS: BP 117/76; PULSE 97; RESP 20; TEMP 36.6; O2SAT 100
[2025-01-11 06:10] LABS: INR 2.8; Prothrombin Time 28.4 Seconds (11.1-14.7)
--- NOTE | 2025-01-11 06:22 | P.PNIM_ITS ---
Progress Note: A&P Assessment and Plan (1) Sepsis: Qualifiers: Sepsis acute organ dysfunction status: without acute organ dysfunction Sepsis type: sepsis due to unspecified organism Qualified Code(s): A41.9 - S epsis, unspecified organism Code(s): A41.9 - Sepsis, unspecified organism Status: Acute Assessment and Plan: Meets SIRS criteria: leukocytosis, tachycardia, and tachypnea in the setting of likely pneumonia and or UTI. - lactic acid: 1.5 - Received sepsis fluids in ED - blood cultures drawn on 01/06, NGTD - UA concerning for infection, culture obtained on 01/06: pseudomonas aeruginosa - CXR: HMD PICC line tip at the cephalad superior vena cava. Opacities in the medial aspect bilateral lower lung zones which could represent atelectasis or pneumonia. - Chest CT: right lower lobe pneumonia - Repeat abdomen/pelvis CT showing pyelonephritis and fecal impaction - See plan for constipation, pneumonia and UTI below Hemodynamically stable. WBC remains elevated in the 20s despite antibiotics. Discussed with ID pharmacy, cefepime dose increased at that time. Remains on flagyl. Azithromycin course completed. (2) Pneumonia: Qualifiers: Laterality: right Lung location: lower lobe of lung Pneumonia type: due to unspecified organism Qualified Code(s): J18.9 - Pneumonia, unspecified organism Code(s): J18.9 - Pneumonia, unspecified organism Status: Acute Assessment and Plan: CXR: HMD PICC line tip at the cephalad superior vena cava. Opacities in the medial aspect bilateral lower lung zones which could represent atelectasis or pneumonia. Chest CT: right lower lobe pneumonia - started on CAP tx: azithromycin (completed) ceftriaxone and Flagyl on 01/06, Rocephin transitioned to cefepime 01/08 given pseudomonas on UCx - Viral PCR: Flu/COVID/RSV negative - legionella and pneumococcal negative, mycoplasma pending - no supplemental O2 requirement - Monitor vital signs, I&Os, neuro status and patient is a fall risk - Follow WBC, serum electrolytes, temperature curves and cultures - Send sputum cultures (3) UTI (urinary tract infection): Qualifiers: Hematuria presence: with hematuria Urinary tract infection type: acute cystitis Qualified Code(s): N30.01 - Acute cystitis with hematuria Code(s): N39.0 - Urinary tract infection, site not specified Status: Acute Assessment and Plan: - UA: cloudy appearance with 1+ protein, trace ketones, 3+ blood, positive nitrates, 2+ leukocytes, 51-100 RBC, 21-50 WBC, rare bacteria - Potter catheter in place with dark cloudy urine subsequently the patient's Potter catheter was exchanged in the ER - CT of the abdomen pelvis was obtained which showed possible cystitis versus chronic outlet obstruction. - UC obtained on 01/06, pseudomonas aeruginosa pansensitive - no previous micro to reviewed - started on Rocephin on 01/07, transitioned to cefepime 01/08 (4) Pyelonephritis: Code(s): N12 - Tubulo-interstitial nephritis, not specified as acute or chronic Status: Acute Assessment and Plan: Abdomen/pelvis CT now showing pyelonephritis Urine culture obtained on 01/06, pseudomonas aeruginosa pansensitive - started on Rocephin on 01/07, transitioned to cefepime 01/08. Dose increased for ongoing leukocytosis. (5) Constipation: Qualifiers: Constipation type: unspecified constipation type Qualified Code(s): K59.00 - Constipation, unspecified Code(s): K59.00 - Constipation, unspecified Status: Acute Assessment and Plan: Incidental finding of fecal impaction with moderate stool burden on imaging. Patient underwent digital rectal exam with disimpaction performed by ER provider. There was still stool retained above the level at could be disimpacted. Abdomen/pelvis CT on admission: moderate retained fecal material throughout the colon with impaction in the rectum Continue Metamucil BID, and senna BID Monitor I/O WBC remains elevated in the 20s despite antibiotics. Patient now complaining of abdominal pain and has tenderness on palpation. Prior CT abdomen pelvis showed large fecal impaction. Patient has been having bowel movements per charting however per RN they have been soft/liquid stools and could possibly be seeping around the stool ball. Abdomen/pelvis CT: readministration of significant fecal stasis distending the rectum and extending retrograde to the level of the splenic flexure, consistent with fecal impaction - soap suds enema x1. Per RN patient had a large bowel movement following (6) Supratherapeutic INR: Code(s): R79.1 - Abnormal coagulation profile Status: Acute Assessment and Plan: Patient on anticoagulation for prior DVT INR 5.8 on admission, now downtrending at 2.8 on am labs INR likely elevated given acute sepsis Holding warfarin 5 mg daily, resume tomorrow likely on 3 mg daily Continue to trend No signs of active bleeding (7) Pressure ulcer: Qualifiers: Pressure injury location: unspecified location Pressure injury stage: unspecified pressure injury stage Qualified Code(s): L89.90 - Pressure ulcer of unspecified site, unspecified stage Code(s): L89.90 - Pressure ulcer of unspecified site, unspecified stage Status: Acute Assessment and Plan: According to documentation from [facility] patient [facility] for sepsis pneumonia sacral ulcers and right upper extremity DVT. 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 According to the ER note the patient's family was debating hospice versus surgical intervention for the patient's sacral wounds. Wound Care nurses felt that there is no need for further debridement of the patient's wounds in the appear to be in good condition. (8) Anemia: Qualifiers: Anemia type: other cause Other causes of anemia: chronic disease, other Qualified Code(s): D63.8 - Anemia in other chronic diseases classified elsewhere Code(s): D64.9 - Anemia, unspecified Status: Acute Assessment and Plan: H/H 8.9/ 27.2 on admission, no signs of active bleeding - H/H remains stable at 8.6/26 on am labs - Iron panel: Iron 20, TIBC 119, % sat 17, Ferritin 293 - B12 and folate WNL - Started on iron supplementation (9) BPH (benign prostatic hyperplasia): Qualifiers: Lower urinary tract symptom detail: urinary retention Lower urinary tract symptom presence: symptoms present Qualified Code(s): N40.1 - Benign prostatic hyperplasia with lower urinary tract symptoms; R33.8 - Other retention of urine Code(s): N40.0 - Benign prostatic hyperplasia without lower urinary tract symptoms Status: Acute Assessment and Plan: Chronic, continue Flomax and finasteride Chronic Potter catheter in place, exchanged in the ED. (10) Hypotension due to hypovolemia: Code(s): E86.1 - Hypovolemia Status: Acute Assessment and Plan: Chronic, continue home midodrine 5 mg TID. Patient was mildly hypotensive in the ER likely related to some volume depletion, systolic blood pressures of 92/64. After fluid bolus patient's blood pressures normalized. Blood pressures remain stable at this time. Continue to monitor. (11) Severe protein-calorie malnutrition: Code(s): E43 - Unspecified severe protein-calorie malnutrition Status: Acute Assessment and Plan: Supplement per nutrition. Time Spent With Patient Time with patient: 25 - 35 minutes Subjective Date/time seen: 01/11/25 06:22 Interval history: 69 year old male with past medical history of schizophrenia and bipolar disorder, orthostatic hypotension, prior DVT on anticoagulation, CKD stage II, chronic constipation and BPH who presented to the hospital from [facility] over concern for possible infection of chronic pressure ulcers. According to the ER physician note patient is chronically bed-bound baseline with flexion contractures of bilateral lower extremities. Patient is pleasant lying comfortably in bed. He remains alert and oriented x2 on assessment. He has no complaints however unsure how accurate this is given his intermittent confusion. He denies any chest pain, shortness a breath, palpitations, nausea/vomiting, abdominal pain. Although he denies abdominal pain he is diffusely tender throughout his abdomen. It is CT abdomen pelvis showed a large fecal impaction. Enema ordered and per RN patient had a large bowel movement. Patient states following the bowel movement he felt a bit better. Review of Systems Review of Systems: Review of systems obtained however unsure how accurate given confusion. During assessment patient denied any complaints. All systems reviewed & are unremarkable except as noted in HPI and below Exam Narrative: AF HR 97 RR 20 SpO2 100 BP 117/76 General: male in no acute respiratory distress who is nontoxic appearing, lying semi recumbent in bed. HEENT: Normocephalic. Atraumatic. Extraocular movement intact. Sclera clear and anicteric. No facial asymmetry. Chest: Lungs are diminished to auscultation bilaterally. PICC line. CV: Heart was regular rate and rhythm. Abd: Abdomen was soft. Tender throughout, no guarding. Nondistended. Positive bowel sounds. Ext: No clubbing, cyanosis, or edema. DP pulses bilaterally. Left hand edema extending to the wrist. Neuro: Patient is alert and oriented x2 (self, year). Speech is quiet and garble d. Objective Data Vital Signs Vital Signs: Vital Signs - 24 hr 01/10/25 09:50 01/10/25 14:00 01/10/25 20:00 Temperature 97.7 F Pulse Rate 110 H Respiratory Rate 18 Blood Pressure 110/71 Pulse Oximetry 100 Oxygen Delivery Room Air Room Air 01/10/25 20:53 01/11/25 05:34 Temperature 98.8 F 97.8 F Pulse Rate 95 97 Respiratory Rate 20 20 Blood Pressure 150/82 H 117/76 Pulse Oximetry 97 100 Oxygen Delivery Intake/Output Intake/Output: Intake & Output 01/08/25 01/09/25 01/10/25 01/11/25 23:59 23:59 23:59 23:59 Intake Total 1535 1150 990 Output Total 1250 1225 1025 500 Balance 501 -01 -06 -016 Meds/Results Medications: Active Medications Generic Name Dose Route Start Last Admin Trade Name Freq PRN Reason Stop Dose Admin Acetaminophen 650 mg 01/06/25 15:33 01/09/25 05:16 Acetaminophen 325 Mg Tablet PO 650 mg Q4H PRN Administration Mild Pain (1-3) or Fever Hydrocodone Bitart/Acetaminophen 1 tab 01/06/25 22:25 01/10/25 16:55 Hydrocodone/Acetaminophen (*Crx) 5-325 Mg Tablet PO 1 tab BID JIMMY Administration Aripiprazole 10 mg 01/07/25 09:00 01/10/25 09:48 Aripiprazole 10 Mg Tablet PO 10 mg DAILY JIMMY Administration Aspirin 81 mg 01/07/25 09:00 01/10/25 09:49 Aspirin 81 Mg Chewable Tablet PO 81 mg DAILY JIMMY Administration Dextrose 12.5 gm 01/06/25 15:33 Dextrose 50% 25 Gm/50 Ml Syringe IV PUSH PRN PRN Hypoglycemia Protocol Ferrous Sulfate 325 mg 01/07/25 17:00 01/10/25 16:55 Ferrous Sulfate [address] PO 325 mg BID JIMMY Administration Finasteride 5 mg 01/07/25 09:00 01/10/25 09:48 Finasteride 5 Mg Tablet PO 5 mg DAILY JIMMY Administration Glucagon 1 mg 01/06/25 15:33 Glucagon For Inj 1 Mg Vial IM PRN PRN Hypoglycemia Protocol Glucose 15 gm 01/06/25 15:33 Glucose Oral Gel 15 Gm Of Glucse In 37.5 Gm Tube PO PRN PRN Hypoglycemia Protocol Azithromycin 500 mg in 250 mls @ 250 mls/hr 01/07/25 17:00 01/10/25 17:38 Zithromax IVPB 250 mls/hr Q24H JIMMY Administration Dextrose 1,000 mls @ 100 mls/hr 01/06/25 15:33 Dextrose 5% 1,000 Ml IVPB PRN PRN Hypoglycemia Protocol Cefepime HCl 1 gm in 50 mls @ 100 mls/hr 01/08/25 09:45 01/10/25 21:01 Maxipime 1 Gm/Ns 50 Ml IVPB 100 mls/hr Q12HR JIMMY Administration Meloxicam 15 mg 01/07/25 09:00 01/10/25 09:48 Meloxicam 7.5 Mg Tablet PO 15 mg DAILY JIMMY Administration Methimazole 5 mg 01/07/25 09:00 01/10/25 16:55 Methimazole 5 Mg Tab PO 5 mg BID JIMMY Administration Metronidazole 500 mg 01/06/25 22:25 01/10/25 16:55 Metronidazole 500 Mg Tablet PO 500 mg TID JIMMY Administration Midodrine 5 mg 01/06/25 22:20 01/10/25 16:55 Midodrine Hcl 2.5 Mg Tablet PO 5 mg TID JIMMY Administration Mirtazapine 15 mg 01/06/25 22:20 01/10/25 21:01 Mirtazapine 15 Mg Tablet PO 15 mg HS JIMMY Administration Ondansetron HCl 4 mg 01/06/25 15:33 Ondansetron Inj 4 Mg/2 Ml Vial IV PUSH Q4H PRN Nausea Polyethylene Glycol 17 gm 01/11/25 09:00 Polyethylene Glycol 3350 17 Gm Powd.Pack PO QAM JIMMY Senna 8.6 mg 01/07/25 09:00 01/10/25 16:55 Sennosides 8.6 Mg Tablet PO 8.6 mg BID JIMMY Administration Sodium Chloride 10 ml 01/06/25 22:00 01/10/25 21:01 Central Line Flush IV PUSH 10 ml Q8HR JIMMY Administration Sodium Chloride 10 ml 01/06/25 16:42 Central Line Flush IV PUSH PRN PRN with TPN bag changes Sodium Chloride 20 ml 01/06/25 16:42 01/10/25 05:37 Central Line Flush IV PUSH 20 ml PRN PRN Administration after blood draws Tamsulosin HCl 0.4 mg 01/07/25 09:00 01/10/25 09:49 Tamsulosin Hcl 0.4 Mg Capsule PO 0.4 mg DAILY JIMMY Administration Trihexyphenidyl HCl 2 mg 01/06/25 22:25 01/10/25 16:55 Trihexyphenidyl Hcl 2 Mg Tablet PO 2 mg BID JIMMY Administration Vitamin B Complex/Folic Acid 1 cap 01/07/25 09:00 01/10/25 09:49 Vitamin B Cmplx/Vit C/Folic Ac 1 Capsule PO 1 cap DAILY JIMMY Administration Radiology Results: ITS Impressions Chest X-Ray 01/06/25 12:08 IMPRESSION: 1. . HMD PICC line tip at the cephalad superior vena cava. 2. Opacities in the medial aspect bilateral lower lung zones which could represent atelectasis or pneumonia. Venous Doppler Study 01/08/25 17:36 IMPRESSION: Partial compression of the cephalic vein which may indicate thrombosis. Axillary vein is not evaluated. Other veins are unremarkable. Abdomen/Pelvis CT 01/10/25 17:56 IMPRESSION: Findings suggesting pyelonephritis, as detailed above. Redemonstration of significant fecal stasis distending the rectum and extending retrograde to the level of the splenic flexure, consistent with fecal impaction. Labs Labs: Laboratory Results - last 24 hr 01/10/25 01/10/25 01/10/25 05:35 08:02 11:53 WBC RBC Hgb Hct MCV MCH MCHC RDW Plt Count MPV PT 32.9 H INR 3.4 Sodium Potassium Chloride Carbon Dioxide Anion Gap BUN Creatinine Estim Creat Clear Calc Estimated GFR Glucose POC Capillary Glucose 82 135 H Calcium Total Bilirubin AST ALT Alkaline Phosphatase Total Protein Albumin Influenza A (RT-PCR) Influenza B (RT-PCR) RSV (RT-PCR) SARS-CoV-2 RNA (RT-PCR) 01/10/25 01/10/25 01/11/25 15:35 16:14 04:54 WBC 22.6 H RBC 2.98 L Hgb 8.6 L Hct 26.0 L MCV 87.2 MCH 28.9 MCHC 33.1 RDW 16.2 H Plt Count 521 H MPV 9.0 PT 28.4 H INR 2.8 Sodium 135 L Potassium 4.0 Chloride 106 Carbon Dioxide 27 Anion Gap 2 L BUN 18 Creatinine 0.64 L Estim Creat Clear Calc 75 Estimated GFR > 60 Glucose 85 POC Capillary Glucose 87 Calcium 8.2 L Total Bilirubin 0.2 AST 32 ALT 26 Alkaline Phosphatase 106 Total Protein 5.5 L Albumin 2.3 L Influenza A (RT-PCR) Negative Influenza B (RT-PCR) Negative RSV (RT-PCR) Negative SARS-CoV-2 RNA (RT-PCR) Negative
[2025-01-11] MEDS: polyethylene glycoL 3350 17 GM POWD.PACK PO (10:07)
[2025-01-11] MEDS: FINASTERIDE 5 MG TABLET PO (10:08)
[2025-01-11] MEDS: TRIHEXYPHENIDYL HCL 2 MG TABLET PO ×2 (10:08→17:27)
[2025-01-11] MEDS: metroNIDAZOLE 500 MG TABLET PO ×3 (10:08→17:27)
[2025-01-11] MEDS: TAMSULOSIN HCL 0.4 MG CAPSULE PO (10:08)
[2025-01-11] MEDS: ARIPiprazole 10 MG TABLET PO (10:08)
[2025-01-11] MEDS: HYDROcodone/acetaminophen (*CRX) 5-325 MG TABLET 1 TAB PO ×2 (10:08→17:28)
[2025-01-11] MEDS: MELOXICAM 7.5 MG TABLET 15 MG PO (10:08)
[2025-01-11] MEDS: MIDODRINE HCL 2.5 MG TABLET 5 MG PO ×3 (10:08→17:27)
[2025-01-11] MEDS: methiMAzole 5 MG TAB PO ×2 (10:09→17:27)
[2025-01-11] MEDS: SENNOSIDES 8.6 MG TABLET PO ×2 (10:09→17:26)
[2025-01-11] MEDS: VITAMIN B CMPLX/VIT C/FOLIC AC 1 CAPSULE 1 CAP PO (10:09)
[2025-01-11] MEDS: CEFEPIME 1 GM/NS 50 ML 1 GM/50 ML BAG IVPB ×2 (10:09→15:21)
[2025-01-11] MEDS: ASPIRIN 81 MG CHEWABLE TABLET PO (10:09)
[2025-01-11] MEDS: FERROUS SULFATE 325 MG TABLET DR PO ×2 (10:09→17:27)
[2025-01-11 14:00] VITALS: BP 121/70; PULSE 107; RESP 22; TEMP 36.2; O2SAT 100
[2025-01-11 18:58] LABS: Mycoplasma IgM Antibody Titer 80 U/mL
[2025-01-11 21:50] VITALS: BP 99/61; PULSE 82; RESP 20; TEMP 37.1; O2SAT 97
[2025-01-11] MEDS: MIRTAZAPINE 15 MG TABLET PO (22:32)
[2025-01-11] MEDS: CEFEPIME 2 GM/NS 50 ML 2 GM/50 ML BAG IVPB (22:33)
[2025-01-12 06:00] VITALS: BP 115/72; PULSE 91; RESP 20; TEMP 36.5; O2SAT 100
[2025-01-12] MEDS: CENTRAL LINE FLUSH 10 ML IV PUSH ×3 (06:37→21:00)
[2025-01-12 07:01] LABS: Hematocrit 26.4 % (42.0-52.0); Hemoglobin 8.6 g/dL (14.0-18.0); Mean Corpuscular HGB Conc 32.6 g/dl (32-36); Mean Corpuscular Volume 88.9 fl (80-100); Mean Platelet Volume 9.2 fl (7.4-10.4); Platelet Count Result 573 k/mm3 (150-375); Red Blood Count 2.97 M/mm3 (4.6-6.20); Red Cell Distribution Width 16.1 % (11.5-14.5); White Blood Count 21.9 K/mm3 (4.5-10.0)
[2025-01-12 07:16] LABS: Prothrombin Time 22.4 Seconds (11.1-14.7)
[2025-01-12 07:17] LABS: Alanine Aminotransferase 26 U/L (6-50); Albumin Level 2.3 g/dL (3.5-5.1); Alkaline Phosphatase 106 U/L (38-126); Anion Gap 3 mmol/L (4-12); Aspartate Amino Transferase 39 U/L (17-59); Bilirubin,Total 0.2 mg/dL (0.2-1.3); Blood Urea Nitrogen 21 mg/dL (9-20); Calcium 8.4 mg/dL (8.4-10.2); Carbon Dioxide 27 mmol/L (22-30); Chloride 106 mmol/L (98-107); Estimated CRCL calculation 77 ml/min; Estimated Glomerular Filt Rate > 60; Glucose 79 mg/dL (65-110); Potassium 4.5 mmol/L (3.4-5.0); Sodium 136 mmol/L (137-145); Total Protein 5.6 g/dL (6.3-8.2)
--- NOTE | 2025-01-12 08:06 | PM.IMPN ---
Progress Note: A&P Assessment and Plan (1) Sepsis: Qualifiers: Sepsis acute organ dysfunction status: without acute organ dysfunction Sepsis type: sepsis due to unspecified organism Qualified Code(s): A41.9 - Sepsis, unspecified organism Code(s): A41.9 - Sepsis, unspecified organism Status: Acute Assessment and Plan: Meets SIRS criteria: leukocytosis, tachycardia, and tachypnea in the setting of likely pneumonia and or UTI. - lactic acid: 1.5 - Received sepsis fluids in ED - blood cultures drawn on 01/06, NGTD - UA concerning for infection, culture obtained on 01/06: pseudomonas aeruginosa - CXR: HMD PICC line tip at the cephalad superior vena cava. Opacities in the medial aspect bilateral lower lung zones which could represent atelectasis or pneumonia. - Chest CT: right lower lobe pneumonia - Repeat abdomen/pelvis CT showing pyelonephritis and fecal impaction - See plan for constipation, pneumonia and UTI below Hemodynamically stable. WBC remains elevated in the 20s, but did slightly downtrend. Discussed with ID pharmacy, cefepime dose increased at that time. Remains on Flagyl. Azithromycin course completed. (2) Pneumonia: Qualifiers: Laterality: right Lung location: lower lobe of lung Pneumonia type: due to unspecified organism Qualified Code(s): J18.9 - Pneumonia, unspecified organism Code(s): J18.9 - Pneumonia, unspecified organism Status: Acute Assessment and Plan: CXR: HMD PICC line tip at the cephalad superior vena cava. Opacities in the medial aspect bilateral lower lung zones which could represent atelectasis or pneumonia. Chest CT: right lower lobe pneumonia - started on CAP tx: azithromycin (completed) ceftriaxone and Flagyl on 01/06, Rocephin transitioned to cefepime 01/08 given pseudomonas on UCx - Viral PCR: Flu/COVID/RSV negative - legionella and pneumococcal negative, mycoplasma pending - no supplemental O2 requirement - Monitor vital signs, I&Os, neuro status and patient is a fall risk - Follow WBC, serum electrolytes, temperature curves and cultures - Send sputum cultures Denies shortness of breath. Continues denies shortness of breath. Lungs remain diminished. Repeat CXR showed right basilar atelectasis versus pneumonia, left basilar atelectatic changes, no change from previous examination. (3) UTI (urinary tract infection): Qualifiers: Hematuria presence: with hematuria Urinary tract infection type: acute cystitis Qualified Code(s): N30.01 - Acute cystitis with hematuria Code(s): N39.0 - Urinary tract infection, site not specified Status: Acute Assessment and Plan: - UA: cloudy appearance with 1+ protein, trace ketones, 3+ blood, positive nitrates, 2+ leukocytes, 51-100 RBC, 21-50 WBC, rare bacteria - Potter catheter in place with dark cloudy urine subsequently the patient's Potter catheter was exchanged in the ER - CT of the abdomen pelvis was obtained which showed possible cystitis versus chronic outlet obstruction. - UC obtained on 01/06, pseudomonas aeruginosa pansensitive - no previous micro to reviewed - started on Rocephin on 01/07, transitioned to cefepime 01/08 (4) Pyelonephritis: Code(s): N12 - Tubulo-interstitial nephritis, not specified as acute or chronic Status: Acute Assessment and Plan: Abdomen/pelvis CT now showing pyelonephritis Urine culture obtained on 01/06, pseudomonas aeruginosa pansensitive - started on Rocephin on 01/07, transitioned to cefepime 01/08. Dose increased for ongoing leukocytosis. Urine output WNL. Denies flank pain. (5) Constipation: Qualifiers: Constipation type: unspecified constipation type Qualified Code(s): K59.00 - Constipation, unspecified Code(s): K59.00 - Constipation, unspecified Status: Acute Assessment and Plan: Incidental finding of fecal impaction with moderate stool burden on imaging. Patient underwent digital rectal exam with disimpaction performed by ER provider. There was still stool retained above the level at could be disimpacted. Abdomen/pelvis CT on admission: moderate retained fecal material throughout the colon with impaction in the rectum Continue Metamucil BID, and senna BID Monitor I/O WBC remains elevated in the 20s despite antibiotics. Patient now complaining of abdominal pain and has tenderness on palpation. Prior CT abdomen pelvis showed large fecal impaction. Patient has been having bowel movements per charting however per RN they have been soft/liquid stools and could possibly be seeping around the stool ball. Abdomen/pelvis CT: readministration of significant fecal stasis distending the rectum and extending retrograde to the level of the splenic flexure, consistent with fecal impaction - soap suds enema x1. Per RN patient had a large bowel movement following Patient continues to have diffuse abdominal pain on assessment. Patient has not had another bowel movement since the enema yesterday. Will also obtain a KUB in the morning to reassess. - repeat soap suds enema x1. - KUB ordered in the am to reassess (6) Supratherapeutic INR: Code(s): R79.1 - Abnormal coagulation profile Status: Acute Assessment and Plan: Patient on anticoagulation for prior DVT INR 5.8 on admission, now downtrending at 2.0 on am labs INR likely elevated given acute sepsis Holding warfarin 5 mg daily, resume today on 3 mg daily. Monitor INR as patient will likely need to increase back to 5 overtime. Continue to trend No signs of active bleeding (7) Pressure ulcer: Qualifiers: Pressure injury location: unspecified location Pressure injury stage: unspecified pressure injury stage Qualified Code(s): L89.90 - Pressure ulcer of unspecified site, unspecified stage Code(s): L89.90 - Pressure ulcer of unspecified site, unspecified stage Status: Acute Assessment and Plan: According to documentation from senior living patient was admitted to senior living 11/16/2024 from [facility] for sepsis pneumonia sacral ulcers and right upper extremity DVT. 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 According to the ER note the patient's family was debating hospice versus surgical intervention for the patient's sacral wounds. Wound Care nurses felt that there is no need for further debridement of the patient's wounds in the appear to be in good condition. (8) Anemia: Qualifiers: Anemia type: other cause Other causes of anemia: chronic disease, other Qualified Code(s): D63.8 - Anemia in other chronic diseases classified elsewhere Code(s): D64.9 - Anemia, unspecified Status: Acute Assessment and Plan: H/H 8.9/ 27.2 on admission, no signs of active bleeding - H/H remains stable at 8.6/26.4 on am labs - Iron panel: Iron 20, TIBC 119, % sat 17, Ferritin 293 - B12 and folate WNL - Started on iron supplementation (9) BPH (benign prostatic hyperplasia): Qualifiers: Lower urinary tract symptom detail: urinary retention Lower urinary tract symptom presence: symptoms present Qualified Code(s): N40.1 - Benign prostatic hyperplasia with lower urinary tract symptoms; R33.8 - Other retention of urine Code(s): N40.0 - Benign prostatic hyperplasia without lower urinary tract symptoms Status: Acute Assessment and Plan: Chronic, continue Flomax and finasteride Chronic Potter catheter in place, exchanged in the ED. (10) Hypotension due to hypovolemia: Code(s): E86.1 - Hypovolemia Status: Acute Assessment and Plan: Chronic, continue home midodrine 5 mg TID. Patient was mildly hypotensive in the ER likely related to some volume depletion, systolic blood pressures of 92/64. After fluid bolus patient's blood pressures normalized. Blood pressures remain stable at this time. Continue to monitor. (11) Severe protein-calorie malnutrition: Code(s): E43 - Unspecified severe protein-calorie malnutrition Status: Acute Assessment and Plan: Supplement per nutrition. Time Spent With Patient Time with patient: 25 - 35 minutes Subjective Date/time seen: 01/12/25 08:06 Interval history: 69 year old male with past medical history of schizophrenia and bipolar disorder, orthostatic hypotension, prior DVT on anticoagulation, CKD stage II, chronic constipation and BPH who presented to the hospital from [facility] over concern for possible infection of chronic pressure ulcers. According to the ER physician note patient is chronically bed-bound baseline with flexion contractures of bilateral lower extremities. Patient is pleasant lying comfortably in bed. He remains alert and oriented x2 at time of assessment. He again has no complaints denying chest pain, shortness a breath, palpitations, nausea/vomiting, and abdominal pain. Patient remains intermittently confused still unsure how accurate review of systems are. Despite denying any abdominal pain patient is diffusely tender throughout the abdomen. Will obtain another enema as patient has not had another bowel movement since the enema yesterday. Review of Systems Review of Systems: Review of systems obtained however unsure how accurate given confusion. During assessment patient denied any complaints. All systems reviewed & are unremarkable except as noted in HPI and below Exam Narrative: AF HR 91 RR 20 SpO2 100 BP 115/72 General: male in no acute respiratory distress who is nontoxic appearing, lying semi recumbent in bed. HEENT: Normocephalic. Atraumatic. Extraocular movement intact. Sclera clear and anicteric. No facial asymmetry. Chest: Lungs are diminished to auscultation bilaterally, unchanged from yesterday. PICC line. CV: Heart was regular rate and rhythm. Abd: Abdomen was soft. Tender throughout, no guarding. Nondistended. Positive bowel sounds. Ext: No clubbing, cyanosis, or edema. DP pulses bilaterally. Left hand edema extending to the wrist. Neuro: Patient is alert and oriented x2 (self, year). Speech is quiet and garbled. Objective Data Vital Signs Vital Signs: Vital Signs - 24 hr 01/11/25 10:10 01/11/25 14:00 01/11/25 20:00 Temperature 97.2 F L Pulse Rate 107 H Respiratory Rate 22 H Blood Pressure 121/70 Pulse Oximetry 100 Oxygen Delivery Room Air Room Air 01/11/25 21:50 01/12/25 06:00 Temperature 98.8 F 97.7 F Pulse Rate 82 91 Respiratory Rate 20 20 Blood Pressure 99/61 L 115/72 Pulse Oximetry 97 100 Oxygen Delivery Intake/Output Intake/Output: Intake & Output 01/09/25 01/10/25 01/11/25 01/12/25 23:59 23:59 23:59 23:59 Intake Total 1150 1040 958 300 Output Total 1225 1025 1250 750 Balance -75 02 -634 -758 Meds/Results Medications: Active Medications Generic Name Dose Route Start Last Admin Trade Name Freq PRN Reason Stop Dose Admin Acetaminophen 650 mg 01/06/25 15:33 01/09/25 05:16 Acetaminophen 325 Mg Tablet PO 650 mg Q4H PRN Administration Mild Pain (1-3) or Fever Hydrocodone Bitart/Acetaminophen 1 tab 01/06/25 22:25 01/11/25 17:28 Hydrocodone/Acetaminophen (*Crx) 5-325 Mg Tablet PO 1 tab BID JIMMY Administration Aripiprazole 10 mg 01/07/25 09:00 01/11/25 10:08 Aripiprazole 10 Mg Tablet PO 10 mg DAILY JIMMY Administration Aspirin 81 mg 01/07/25 09:00 01/11/25 10:09 Aspirin 81 Mg Chewable Tablet PO 81 mg DAILY JIMMY Administration Dextrose 12.5 gm 01/06/25 15:33 Dextrose 50% 25 Gm/50 Ml Syringe IV PUSH PRN PRN Hypoglycemia Protocol Ferrous Sulfate 325 mg 01/07/25 17:00 01/11/25 17:27 Ferrous Sulfate [address] PO 325 mg BID JIMMY Administration Finasteride 5 mg 01/07/25 09:00 01/11/25 10:08 Finasteride 5 Mg Tablet PO 5 mg DAILY JIMMY Administration Glucagon 1 mg 01/06/25 15:33 Glucagon For Inj 1 Mg Vial IM PRN PRN Hypoglycemia Protocol Glucose 15 gm 01/06/25 15:33 Glucose Oral Gel 15 Gm Of Glucse In 37.5 Gm Tube PO PRN PRN Hypoglycemia Protocol Dextrose 1,000 mls @ 100 mls/hr 01/06/25 15:33 Dextrose 5% 1,000 Ml IVPB PRN PRN Hypoglycemia Protocol Cefepime HCl 2 gm in 50 mls @ 100 mls/hr 01/11/25 23:00 01/11/25 23:03 Maxipime 2 Gm/Ns 50 Ml IVPB Infused Q12HR JIMMY Infusion Meloxicam 15 mg 01/07/25 09:00 01/11/25 10:08 Meloxicam 7.5 Mg Tablet PO 15 mg DAILY JIMMY Administration Methimazole 5 mg 01/07/25 09:00 01/11/25 17:27 Methimazole 5 Mg Tab PO 5 mg BID JIMMY Administration Metronidazole 500 mg 01/06/25 22:25 01/11/25 17:27 Metronidazole 500 Mg Tablet PO 500 mg TID JIMMY Administration Midodrine 5 mg 01/06/25 22:20 01/11/25 17:27 Midodrine Hcl 2.5 Mg Tablet PO 5 mg TID JIMMY Administration Mirtazapine 15 mg 01/06/25 22:20 01/11/25 22:32 Mirtazapine 15 Mg Tablet PO 15 mg HS JIMMY Administration Ondansetron HCl 4 mg 01/06/25 15:33 Ondansetron Inj 4 Mg/2 Ml Vial IV PUSH Q4H PRN Nausea Polyethylene Glycol 17 gm 01/11/25 09:00 01/11/25 10:07 Polyethylene Glycol 3350 17 Gm Powd.Pack PO 17 gm QAM JIMMY Administration Senna 8.6 mg 01/07/25 09:00 01/11/25 17:26 Sennosides 8.6 Mg Tablet PO 8.6 mg BID JIMMY Administration Sodium Chloride 10 ml 01/06/25 22:00 01/12/25 06:37 Central Line Flush IV PUSH 10 ml Q8HR JIMMY Administration Sodium Chloride 10 ml 01/06/25 16:42 Central Line Flush IV PUSH PRN PRN with TPN bag changes Sodium Chloride 20 ml 01/06/25 16:42 01/10/25 05:37 Central Line Flush IV PUSH 20 ml PRN PRN Administration after blood draws Tamsulosin HCl 0.4 mg 01/07/25 09:00 01/11/25 10:08 Tamsulosin Hcl 0.4 Mg Capsule PO 0.4 mg DAILY JIMMY Administration Trihexyphenidyl HCl 2 mg 01/06/25 22:25 01/11/25 17:27 Trihexyphenidyl Hcl 2 Mg Tablet PO 2 mg BID JIMMY Administration Vitamin B Complex/Folic Acid 1 cap 01/07/25 09:00 01/11/25 10:09 Vitamin B Cmplx/Vit C/Folic Ac 1 Capsule PO 1 cap DAILY JIMMY Administration Radiology Results: ITS Impressions Chest X-Ray 01/06/25 12:08 IMPRESSION: 1. . HMD PICC line tip at the cephalad superior vena cava. 2. Opacities in the medial aspect bilateral lower lung zones which could represent atelectasis or pneumonia. Venous Doppler Study 01/08/25 17:36 IMPRESSION: Partial compression of the cephalic vein which may indicate thrombosis. Axillary vein is not evaluated. Other veins are unremarkable. Abdomen/Pelvis CT 01/10/25 17:56 IMPRESSION: Findings suggesting pyelonephritis, as detailed above. Redemonstration of significant fecal stasis distending the rectum and extending retrograde to the level of the splenic flexure, consistent with fecal impaction. Labs Labs: Laboratory Results - last 24 hr 01/07/25 01/12/25 09:12 06:44 WBC 21.9 H RBC 2.97 L Hgb 8.6 L Hct 26.4 L MCV 88.9 MCH 29.0 MCHC 32.6 RDW 16.1 H Plt Count 573 H MPV 9.2 Sodium 136 L Potassium 4.5 Chloride 106 Carbon Dioxide 27 Anion Gap 3 L BUN 21 H Creatinine 0.62 L Estim Creat Clear Calc 77 Estimated GFR > 60 Glucose 79 Calcium 8.4 Total Bilirubin 0.2 AST 39 ALT 26 Alkaline Phosphatase 106 Total Protein 5.6 L Albumin 2.3 L Mycoplasma pneumon IgM 80 Quality VTE Prophylaxis VTE prophylaxis: pharmacologic ordered
--- NOTE | 2025-01-12 10:29 | PCNFU ---
Nutrition Follow-Up Complete: Increased protein energy needs related to pressure injuries as evidenced by wound screen Goal:Adequate PO intake at least 75% to support wound healing Pt current nutrition is Minced and moist level 5, Ensure enlive BID, HECTOR BID. Nutrition recommendation: continue with plan of care, encourage po intake Last recorded weight is 57.8 kg. Bowel Motility: +BM 01/11 Labs Reviewed: Hgb:8.6, HCT:26.4, Alb:2.3, NA:136, BUN:21, Cr:0.62 Meds Noted: remeron, miralax, coumadin Skin: unstageable to both hips, unstageable to heel, stage IV to sacrum Additional Notes: Pt continues on a minced and moist level 5 diet, noted pt is a dependent feeder. Intake remains poor at 10-50%. Supplements in place. Encourage and assist with all meals and supplements. Monitoring intakes, weights, labs, skin, supplement tolerance, plan of care Follow up in 5 days
[2025-01-12] MEDS: polyethylene glycoL 3350 17 GM POWD.PACK PO (10:35)
[2025-01-12] MEDS: SENNOSIDES 8.6 MG TABLET PO ×2 (10:35→16:35)
[2025-01-12] MEDS: FERROUS SULFATE 325 MG TABLET DR PO ×2 (10:35→16:35)
[2025-01-12] MEDS: TRIHEXYPHENIDYL HCL 2 MG TABLET PO ×2 (10:35→16:40)
[2025-01-12] MEDS: MELOXICAM 7.5 MG TABLET 15 MG PO (10:35)
[2025-01-12] MEDS: methiMAzole 5 MG TAB PO ×2 (10:35→16:35)
[2025-01-12] MEDS: HYDROcodone/acetaminophen (*CRX) 5-325 MG TABLET 1 TAB PO ×2 (10:35→16:35)
[2025-01-12] MEDS: ASPIRIN 81 MG CHEWABLE TABLET PO (10:35)
[2025-01-12] MEDS: TAMSULOSIN HCL 0.4 MG CAPSULE PO (10:35)
[2025-01-12] MEDS: CEFEPIME 2 GM/NS 50 ML 2 GM/50 ML BAG IVPB ×2 (10:36→20:56)
[2025-01-12] MEDS: VITAMIN B CMPLX/VIT C/FOLIC AC 1 CAPSULE 1 CAP PO (10:36)
[2025-01-12] MEDS: MIDODRINE HCL 2.5 MG TABLET 5 MG PO ×3 (10:36→16:35)
[2025-01-12] MEDS: ARIPiprazole 10 MG TABLET PO (10:36)
[2025-01-12] MEDS: FINASTERIDE 5 MG TABLET PO (10:36)
[2025-01-12] MEDS: metroNIDAZOLE 500 MG TABLET PO ×3 (10:59→16:36)
[2025-01-12 13:58] VITALS: BP 114/71; PULSE 95; RESP 22; TEMP 36.6; O2SAT 100
[2025-01-12] MEDS: WARFARIN (*PBKC) 3 MG TABLET PO (16:36)
[2025-01-12 19:36] VITALS: BP 102/66; PULSE 87; RESP 16; TEMP 36.7; O2SAT 100
[2025-01-12] MEDS: MIRTAZAPINE 15 MG TABLET PO (20:56)
[2025-01-13 04:15] VITALS: BP 123/73; PULSE 88; RESP 17; TEMP 36.9; O2SAT 100
[2025-01-13] MEDS: CENTRAL LINE FLUSH 20 ML IV PUSH (04:30)
[2025-01-13] MEDS: CENTRAL LINE FLUSH 10 ML IV PUSH ×3 (04:31→22:11)
[2025-01-13 04:53] LABS: INR 1.9; Prothrombin Time 21.7 Seconds (11.1-14.7)
[2025-01-13] MEDS: HYDROcodone/acetaminophen (*CRX) 5-325 MG TABLET 1 TAB PO ×2 (09:49→17:12)
[2025-01-13] MEDS: MIDODRINE HCL 2.5 MG TABLET 5 MG PO ×3 (09:49→17:13)
[2025-01-13] MEDS: SENNOSIDES 8.6 MG TABLET PO ×2 (09:50→17:12)
[2025-01-13] MEDS: FERROUS SULFATE 325 MG TABLET DR PO ×2 (09:50→17:12)
[2025-01-13] MEDS: polyethylene glycoL 3350 17 GM POWD.PACK PO (09:50)
[2025-01-13] MEDS: ASPIRIN 81 MG CHEWABLE TABLET PO (09:50)
[2025-01-13] MEDS: methiMAzole 5 MG TAB PO ×2 (09:50→17:13)
[2025-01-13] MEDS: TAMSULOSIN HCL 0.4 MG CAPSULE PO (09:50)
[2025-01-13] MEDS: FINASTERIDE 5 MG TABLET PO (09:50)
[2025-01-13] MEDS: VITAMIN B CMPLX/VIT C/FOLIC AC 1 CAPSULE 1 CAP PO (09:50)
[2025-01-13] MEDS: TRIHEXYPHENIDYL HCL 2 MG TABLET PO ×2 (09:50→17:13)
[2025-01-13] MEDS: MELOXICAM 7.5 MG TABLET 15 MG PO (09:50)
[2025-01-13] MEDS: metroNIDAZOLE 500 MG TABLET PO ×3 (09:50→17:13)
[2025-01-13] MEDS: ARIPiprazole 10 MG TABLET PO (09:50)
[2025-01-13] MEDS: CEFEPIME 2 GM/NS 50 ML 2 GM/50 ML BAG IVPB ×2 (10:16→22:10)
--- NOTE | 2025-01-13 13:26 | PM.IMPN ---
Progress Note: A&P Assessment and Plan (1) Sepsis: Qualifiers: Sepsis type: sepsis due to unspecified organism Sepsis acute organ dysfunction status: without acute organ dysfunction Qualified Code(s): A41.9 - Sepsis, unspecified organism Code(s): A41.9 - Sepsis, unspecified organism Status: Acute Assessment and Plan: Meets SIRS criteria: leukocytosis, tachycardia, and tachypnea in the setting of likely pneumonia and or UTI. - lactic acid: 1.5 - Received sepsis fluids in ED - blood cultures drawn on 01/06, NGTD - UA concerning for infection, culture obtained on 01/06: pseudomonas aeruginosa - CXR: HMD PICC line tip at the cephalad superior vena cava. Opacities in the medial aspect bilateral lower lung zones which could represent atelectasis or pneumonia. - Chest CT: right lower lobe pneumonia - Repeat abdomen/pelvis CT showing pyelonephritis and fecal impaction - See plan for constipation, pneumonia and UTI below Hemodynamically stable. WBC remains elevated in the 20s, but did slightly downtrend. Discussed with ID pharmacy, cefepime dose increased at that time. Remains on Flagyl. Azithromycin course completed. 01/13 added doxy po will add wound culture as none available (2) Pneumonia: Qualifiers: Laterality: right Lung location: lower lobe of lung Pneumonia type: due to unspecified organism Qualified Code(s): J18.9 - Pneumonia, unspecified organism Code(s): J18.9 - Pneumonia, unspecified organism Status: Acute Assessment and Plan: CXR: HMD PICC line tip at the cephalad superior vena cava. Opacities in the medial aspect bilateral lower lung zones which could represent atelectasis or pneumonia. Chest CT: right lower lobe pneumonia - started on CAP tx: azithromycin (completed) ceftriaxone and Flagyl on 01/06, Rocephin transitioned to cefepime 01/08 given pseudomonas on UCx - Viral PCR: Flu/COVID/RSV negative - legionella and pneumococcal negative, mycoplasma pending - no supplemental O2 requirement - Monitor vital signs, I&Os, neuro status and patient is a fall risk - Follow WBC, serum electrolytes, temperature curves and cultures - Send sputum cultures Denies shortness of breath. Continues denies shortness of breath. Lungs remain diminished. Repeat CXR showed right basilar atelectasis versus pneumonia, left basilar atelectatic changes, no change from previous examination. (3) UTI (urinary tract infection): Qualifiers: Hematuria presence: with hematuria Urinary tract infection type: acute cystitis Qualified Code(s): N30.01 - Acute cystitis with hematuria Code(s): N39.0 - Urinary tract infection, site not specified Status: Acute Assessment and Plan: - UA: cloudy appearance with 1+ protein, trace ketones, 3+ blood, positive nitrates, 2+ leukocytes, 51-100 RBC, 21-50 WBC, rare bacteria - Potter catheter in place with dark cloudy urine subsequently the patient's Potter catheter was exchanged in the ER - CT of the abdomen pelvis was obtained which showed possible cystitis versus chronic outlet obstruction. - UC obtained on 01/06, pseudomonas aeruginosa pansensitive - no previous micro to reviewed - started on Rocephin on 01/07, transitioned to cefepime 01/08 (4) Pyelonephritis: Code(s): N12 - Tubulo-interstitial nephritis, not specified as acute or chronic Status: Acute Assessment and Plan: Abdomen/pelvis CT now showing pyelonephritis Urine culture obtained on 01/06, pseudomonas aeruginosa pansensitive - started on Rocephin on 01/07, transitioned to cefepime 01/08. Dose increased for ongoing leukocytosis. Urine output WNL. Denies flank pain. (5) Constipation: Qualifiers: Constipation type: unspecified constipation type Qualified Code(s): K59.00 - Constipation, unspecified Code(s): K59.00 - Constipation, unspecified Status: Acute Assessment and Plan: Incidental finding of fecal impaction with moderate stool burden on imaging. Patient underwent digital rectal exam with disimpaction performed by ER provider. There was still stool retained above the level at could be disimpacted. Abdomen/pelvis CT on admission: moderate retained fecal material throughout the colon with impaction in the rectum Continue Metamucil BID, and senna BID Monitor I/O WBC remains elevated in the 20s despite antibiotics. Patient now complaining of abdominal pain and has tenderness on palpation. Prior CT abdomen pelvis showed large fecal impaction. Patient has been having bowel movements per charting however per RN they have been soft/liquid stools and could possibly be seeping around the stool ball. Abdomen/pelvis CT: readministration of significant fecal stasis distending the rectum and extending retrograde to the level of the splenic flexure, consistent with fecal impaction - soap suds enema x1. Per RN patient had a large bowel movement following Patient continues to have diffuse abdominal pain on assessment. Patient has not had another bowel movement since the enema yesterday. Will also obtain a KUB in the morning to reassess. - repeat soap suds enema x1. - KUB ordered in the am to reassess 01/13 2 BMs so far (6) Supratherapeutic INR: Code(s): R79.1 - Abnormal coagulation profile Status: Acute Assessment and Plan: Patient on anticoagulation for prior DVT INR 5.8 on admission, now downtrending at 2.0 on am labs INR likely elevated given acute sepsis Holding warfarin 5 mg daily, resume today on 3 mg daily. Monitor INR as patient will likely need to increase back to 5 overtime. Continue to trend No signs of active bleeding (7) Pressure ulcer: Qualifiers: Pressure injury location: unspecified location Pressure injury stage: unspecified pressure injury stage Qualified Code(s): L89.90 - Pressure ulcer of unspecified site, unspecified stage Code(s): L89.90 - Pressure ulcer of unspecified site, unspecified stage Status: Acute Assessment and Plan: According to documentation from custodial patient was admitted to custodial 11/16/2024 from [facility] for sepsis pneumonia sacral ulcers and right upper extremity DVT. 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 According to the ER note the patient's family was debating hospice versus surgical intervention for the patient's sacral wounds. Wound Care nurses felt that there is no need for further debridement of the patient's wounds in the appear to be in good condition. (8) Anemia: Qualifiers: Anemia type: other cause Other causes of anemia: chronic disease, other Qualified Code(s): D63.8 - Anemia in other chronic diseases classified elsewhere Code(s): D64.9 - Anemia, unspecified Status: Acute Assessment and Plan: H/H 8.9/ 27.2 on admission, no signs of active bleeding - H/H remains stable at 8.6/26.4 on am labs - Iron panel: Iron 20, TIBC 119, % sat 17, Ferritin 293 - B12 and folate WNL - Started on iron supplementation (9) BPH (benign prostatic hyperplasia): Qualifiers: Lower urinary tract symptom presence: symptoms present Lower urinary tract symptom detail: urinary retention Qualified Code(s): N40.1 - Benign prostatic hyperplasia with lower urinary tract symptoms; R33.8 - Other retention of urine Code(s): N40.0 - Benign prostatic hyperplasia without lower urinary tract symptoms Status: Acute Assessment and Plan: Chronic, continue Flomax and finasteride Chronic Potter catheter in place, exchanged in the ED. (10) Hypotension due to hypovolemia: Code(s): E86.1 - Hypovolemia Status: Acute Assessment and Plan: Chronic, continue home midodrine 5 mg TID. Patient was mildly hypotensive in the ER likely related to some volume depletion, systolic blood pressures of 92/64. After fluid bolus patient's blood pressures normalized. Blood pressures remain stable at this time. Continue to monitor. (11) Severe protein-calorie malnutrition: Code(s): E43 - Unspecified severe protein-calorie malnutrition Status: Acute Assessment and Plan: Supplement per nutrition. Time Spent With Patient Time with patient: 25 - 35 minutes Subjective Date/time seen: 01/13/25 13:26 Interval history: 69 year old male with past medical history of schizophrenia and bipolar disorder, orthostatic hypotension, prior DVT on anticoagulation, CKD stage II, chronic constipation and BPH who presented to the hospital from [facility] over concern for possible infection of chronic pressure ulcers. According to the ER physician note patient is chronically bed-bound baseline with flexion contractures of bilateral lower extremities. Patient is pleasant lying comfortably in bed. He remains alert and oriented x2 at time of assessment. He is denying chest pain, shortness a breath, palpitations, nausea/vomiting, and abdominal pain. Patient is intermittently confused. He had 2 BMs so far. Review of Systems Review of Systems: Review of systems obtained however unsure how accurate given confusion. During assessment patient denied any complaints. All systems reviewed & are unremarkable except as noted in HPI and below ROS unobtainable: Yes unobtainable due to mental status Exam Narrative: General: male in no acute respiratory distress who is nontoxic appearing, lying semi recumbent in bed. HEENT: Normocephalic. Atraumatic. Extraocular movement intact. Sclera clear and anicteric. No facial asymmetry. Chest: Lungs are diminished to auscultation bilaterally, unchanged from yesterday. PICC line. CV: Heart was regular rate and rhythm. Abd: Abdomen was soft. Tender throughout, no guarding. Nondistended. Positive bowel sounds. Ext: No clubbing, cyanosis, or edema. DP pulses bilaterally. Left hand edema extending to the wrist. dressing to BLE. heel protector boots on Neuro: Patient is alert and oriented x2 (self, year). Speech is quiet and garbled. Const: Other: Chronically ill-appearing, appears older than stated age, thin body habitus Eyes: Other: Pupils are equal and reactive, extraocular movements intact Neck: Other: No JVD, no lymphadenopathy Resp: Other: Shallow respirations, decreased breath sounds at the bases, no increased work of breathing Cardio: Other: Mildly tachycardic, 2+ bilateral radial and pedal pulses, no JVD, no murmur GI: Other: Soft, nontender, nondistended, positive bowel sounds : Other: Potter catheter in place with cloudy yellow urine Back/Spine/Pelvis: Other: Sacral ulcer with exposed bone and tendon please see wound care photos with clean wound beds consistent with chronic stable wound Skin: Other: Patient has unstageable ulcers bilateral hips with soft material colored yellow to dark ann, right heel with overlying eschar that is firm Psych: Other: Pleasantly confused, cooperative Objective Data Vital Signs Vital Signs: Vital Signs - 24 hr 01/12/25 13:58 01/12/25 19:36 01/12/25 20:44 Temperature 97.8 F 98.0 F Pulse Rate 95 87 Respiratory Rate 22 H 16 Blood Pressure 114/71 102/66 Pulse Oximetry 100 100 Oxygen Delivery Room Air 01/13/25 04:15 Temperature 98.4 F Pulse Rate 88 Respiratory Rate 17 Blood Pressure 123/73 Pulse Oximetry 100 Oxygen Delivery Intake/Output Intake/Output: Intake & Output 01/10/25 01/11/25 01/12/2501/13/25 23:59 23:59 23:59 23:59 Intake Total 1970 510 6158 350 Output Total 1025 1250 1000 435 Balance 15 -008 308 -500 Meds/Results Medications: Active Medications Generic Name Dose Route Start Last Admin Trade Name Freq PRN Reason Stop Dose Admin Acetaminophen 650 mg 01/06/25 15:33 01/09/25 05:16 Acetaminophen 325 Mg Tablet PO 650 mg Q4H PRN Administration Mild Pain (1-3) or Fever Hydrocodone Bitart/Acetaminophen 1 tab 01/06/25 22:25 01/13/25 09:49 Hydrocodone/Acetaminophen (*Crx) 5-325 Mg Tablet PO 1 tab BID JIMMY Administration Aripiprazole 10 mg 01/07/25 09:00 01/13/25 09:50 Aripiprazole 10 Mg Tablet PO 10 mg DAILY JIMMY Administration Aspirin 81 mg 01/07/25 09:00 01/13/25 09:50 Aspirin 81 Mg Chewable Tablet PO 81 mg DAILY JIMMY Administration Dextrose 12.5 gm 01/06/25 15:33 Dextrose 50% 25 Gm/50 Ml Syringe IV PUSH PRN PRN Hypoglycemia Protocol Doxycycline Hyclate 100 mg 01/13/25 13:30 Doxycycline Hyclate 100 Mg Tablet PO Q12HR JIMMY Ferrous Sulfate 325 mg 01/07/25 17:00 01/13/25 09:50 Ferrous Sulfate [address] PO 325 mg BID JIMMY Administration Finasteride 5 mg 01/07/25 09:00 01/13/25 09:50 Finasteride 5 Mg Tablet PO 5 mg DAILY JIMMY Administration Glucagon 1 mg 01/06/25 15:33 Glucagon For Inj 1 Mg Vial IM PRN PRN Hypoglycemia Protocol Glucose 15 gm 01/06/25 15:33 Glucose Oral Gel 15 Gm Of Glucse In 37.5 Gm Tube PO PRN PRN Hypoglycemia Protocol Dextrose 1,000 mls @ 100 mls/hr 01/06/25 15:33 Dextrose 5% 1,000 Ml IVPB PRN PRN Hypoglycemia Protocol Cefepime HCl 2 gm in 50 mls @ 100 mls/hr 01/11/25 23:00 01/13/25 10:46 Maxipime 2 Gm/Ns 50 Ml IVPB Infused Q12HR JIMMY Infusion Meloxicam 15 mg 01/07/25 09:00 01/13/25 09:50 Meloxicam 7.5 Mg Tablet PO 15 mg DAILY JIMMY Administration Methimazole 5 mg 01/07/25 09:00 01/13/25 09:50 Methimazole 5 Mg Tab PO 5 mg BID JIMMY Administration Metronidazole 500 mg 01/06/25 22:25 01/13/25 12:04 Metronidazole 500 Mg Tablet PO 500 mg TID JIMMY Administration Midodrine 5 mg 01/06/25 22:20 01/13/25 12:04 Midodrine Hcl 2.5 Mg Tablet PO 5 mg TID JIMMY Administration Mirtazapine 15 mg 01/06/25 22:20 01/12/25 20:56 Mirtazapine 15 Mg Tablet PO 15 mg HS JIMMY Administration Ondansetron HCl 4 mg 01/06/25 15:33 Ondansetron Inj 4 Mg/2 Ml Vial IV PUSH Q4H PRN Nausea Polyethylene Glycol 17 gm 01/11/25 09:00 01/13/25 09:50 Polyethylene Glycol 3350 17 Gm Powd.Pack PO 17 gm QAM JIMMY Administration Senna 8.6 mg 01/07/25 09:00 01/13/25 09:50 Sennosides 8.6 Mg Tablet PO 8.6 mg BID JIMMY Administration Sodium Chloride 10 ml 01/06/25 22:00 01/13/25 09:50 Central Line Flush IV PUSH 10 ml Q8HR JIMMY Administration Sodium Chloride 10 ml 01/06/25 16:42 Central Line Flush IV PUSH PRN PRN with TPN bag changes Sodium Chloride 20 ml 01/06/25 16:42 01/13/25 04:30 Central Line Flush IV PUSH 20 ml PRN PRN Administration after blood draws Tamsulosin HCl 0.4 mg 01/07/25 09:00 01/13/25 09:50 Tamsulosin Hcl 0.4 Mg Capsule PO 0.4 mg DAILY JIMMY Administration Trihexyphenidyl HCl 2 mg 01/06/25 22:25 01/13/25 09:50 Trihexyphenidyl Hcl 2 Mg Tablet PO 2 mg BID JIMMY Administration Vitamin B Complex/Folic Acid 1 cap 01/07/25 09:00 01/13/25 09:50 Vitamin B Cmplx/Vit C/Folic Ac 1 Capsule PO 1 cap DAILY JIMMY Administration Warfarin Sodium 3 mg 01/12/25 17:00 01/12/25 16:36 Warfarin (*Pbkc) 3 Mg Tablet PO 3 mg DAILY@1700 JIMMY Administration Radiology Results: ITS Impressions Venous Doppler Study 01/08/25 17:36 IMPRESSION: Partial compression of the cephalic vein which may indicate thrombosis. Axillary vein is not evaluated. Other veins are unremarkable. Abdomen/Pelvis CT 01/10/25 17:56 IMPRESSION: Findings suggesting pyelonephritis, as detailed above. Redemonstration of significant fecal stasis distending the rectum and extending retrograde to the level of the splenic flexure, consistent with fecal impaction. Chest X-Ray 01/12/25 11:48 IMPRESSION: Right basilar atelectasis versus pneumonia. Left basilar atelectatic changes. No change from previous examination. Abdomen X-Ray 01/13/25 06:08 Impression: Nonspecific bowel gas pattern. Moderate stool at the distal rectum. Advanced degenerative change of both hip joints. Labs Labs: Laboratory Results - last 24 hr 01/13/25 04:28 PT 21.7 H INR 1.9 Quality VTE Prophylaxis VTE prophylaxis: pharmacologic ordered
[2025-01-13 14:00] VITALS: BP 98/82; PULSE 74; RESP 18; TEMP 35.9; O2SAT 98
[2025-01-13] MEDS: DOXYCYCLINE HYCLATE 100 MG TABLET PO ×2 (14:01→22:45)
[2025-01-13] MEDS: WARFARIN (*PBKC) 3 MG TABLET PO (17:13)
[2025-01-13] MEDS: NACL 0.9% IRRIGATION POUR BOTTLE 500 ML (18:26)
[2025-01-13 21:59] VITALS: BP 116/68; PULSE 71; RESP 16; TEMP 36.7; O2SAT 100
[2025-01-13] MEDS: MIRTAZAPINE 15 MG TABLET PO (22:11)
[2025-01-14] MEDS: CENTRAL LINE FLUSH 10 ML IV PUSH ×3 (05:54→21:18)
[2025-01-14 06:00] VITALS: BP 120/68; PULSE 106; RESP 20; TEMP 36.3; O2SAT 100
[2025-01-14 06:17] LABS: INR 1.9; Prothrombin Time 21.3 Seconds (11.1-14.7)
[2025-01-14 08:23] LABS: Glucose Point of Care 75 mg/dl (65-105)
[2025-01-14] MEDS: polyethylene glycoL 3350 17 GM POWD.PACK PO (09:22)
[2025-01-14] MEDS: methiMAzole 5 MG TAB PO ×2 (09:24→16:52)
[2025-01-14] MEDS: FINASTERIDE 5 MG TABLET PO (09:24)
[2025-01-14] MEDS: MELOXICAM 7.5 MG TABLET 15 MG PO (09:24)
[2025-01-14] MEDS: metroNIDAZOLE 500 MG TABLET PO ×3 (09:24→16:52)
[2025-01-14] MEDS: FERROUS SULFATE 325 MG TABLET DR PO ×2 (09:24→16:52)
[2025-01-14] MEDS: SENNOSIDES 8.6 MG TABLET PO ×2 (09:24→16:52)
[2025-01-14] MEDS: TAMSULOSIN HCL 0.4 MG CAPSULE PO (09:24)
[2025-01-14] MEDS: ASPIRIN 81 MG CHEWABLE TABLET PO (09:24)
[2025-01-14] MEDS: ARIPiprazole 10 MG TABLET PO (09:25)
[2025-01-14] MEDS: TRIHEXYPHENIDYL HCL 2 MG TABLET PO ×2 (09:25→16:51)
[2025-01-14] MEDS: MIDODRINE HCL 2.5 MG TABLET 5 MG PO ×3 (09:25→16:51)
[2025-01-14] MEDS: HYDROcodone/acetaminophen (*CRX) 5-325 MG TABLET 1 TAB PO ×2 (09:25→16:51)
[2025-01-14] MEDS: DOXYCYCLINE HYCLATE 100 MG TABLET PO (09:25)
[2025-01-14] MEDS: VITAMIN B CMPLX/VIT C/FOLIC AC 1 CAPSULE 1 CAP PO (09:26)
[2025-01-14] MEDS: CEFEPIME 2 GM/NS 50 ML 2 GM/50 ML BAG IVPB ×2 (09:26→21:10)
[2025-01-14 12:55] LABS: Glucose Point of Care 105 mg/dl (65-105)
[2025-01-14 14:00] VITALS: BP 117/84; PULSE 96; RESP 18; TEMP 36.2; O2SAT 96
--- NOTE | 2025-01-14 14:12 | P.PNIM_ITS ---
Progress Note: A&P Assessment and Plan (1) Sepsis: Qualifiers: Sepsis type: sepsis due to unspecified organism Sepsis acute organ dysfunction status: without acute organ dysfunction Qualified Code(s): A41.9 - Sepsis, unspecified organism Code(s): A41.9 - Sepsis, unspecified organism Status: Acute Assessment and Plan: Meets SIRS criteria: leukocytosis, tachycardia, and tachypnea in the setting of likely pneumonia and or UTI. - lactic acid: 1.5 - Received sepsis fluids in ED - blood cultures drawn on 01/06, NGTD - UA concerning for infection, culture obtained on 01/06: pseudomonas aeruginosa - CXR: HMD PICC line tip at the cephalad superior vena cava. Opacities in the medial aspect bilateral lower lung zones which could represent atelectasis or pneumonia. - Chest CT: right lower lobe pneumonia - Repeat abdomen/pelvis CT 01/10/2025 showing pyelonephritis and fecal impaction - See plan for constipation, pneumonia and UTI below -wound culture mixed bacterial gonzalo Hemodynamically stable. WBC remains elevated in the 20s, but did slightly downtrend. Cefepime started 01/08/2025. Remains on Flagyl. Azithromycin course completed. Added on doxycycline 01/13/2025 for MRSA coverage Previous culture from sacral decubitus ulcer reviewed from 11/05/2024. 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 For MRSA Doxycycline is intermediate. Will switch to Bactrim which was susceptible. Also was susceptible to ceftaroline linezolid daptomycin vancomycin and clindamycin (2) Pneumonia: Qualifiers: Laterality: right Lung location: lower lobe of lung Pneumonia type: due to unspecified organism Qualified Code(s): J18.9 - Pneumonia, unspecified organism Code(s): J18.9 - Pneumonia, unspecified organism Status: Acute Assessment and Plan: CXR: HMD PICC line tip at the cephalad superior vena cava. Opacities in the medial aspect bilateral lower lung zones which could represent atelectasis or pneumonia. Chest CT: right lower lobe pneumonia - started on CAP tx: azithromycin (completed) ceftriaxone and Flagyl on 01/06, Rocephin transitioned to cefepime 01/08 given pseudomonas on UCx - Viral PCR: Flu/COVID/RSV negative - legionella and pneumococcal negative, mycoplasma pending - no supplemental O2 requirement - Monitor vital signs, I&Os, neuro status and patient is a fall risk - Follow WBC, serum electrolytes, temperature curves and cultures - Send sputum cultures Denies shortness of breath. Continues denies shortness of breath. Lungs remain diminished. Repeat CXR showed right basilar atelectasis versus pneumonia, left basilar atelectatic changes, no change from previous examination. (3) UTI (urinary tract infection): Qualifiers: Hematuria presence: with hematuria Urinary tract infection type: acute cystitis Qualified Code(s): N30.01 - Acute cystitis with hematuria Code(s): N39.0 - Urinary tract infection, site not specified Status: Acute Assessment and Plan: - UA: cloudy appearance with 1+ protein, trace ketones, 3+ blood, positive nitrates, 2+ leukocytes, 51-100 RBC, 21-50 WBC, rare bacteria - Potter catheter in place with dark cloudy urine subsequently the patient's Potter catheter was exchanged in the ER - CT of the abdomen pelvis was obtained which showed possible cystitis versus chronic outlet obstruction. - UC obtained on 01/06, pseudomonas aeruginosa pansensitive - no previous micro to reviewed - started on Rocephin on 01/07, transitioned to cefepime 01/08 (4) Pyelonephritis: Code(s): N12 - Tubulo-interstitial nephritis, not specified as acute or chronic Status: Acute Assessment and Plan: Abdomen/pelvis CT now showing pyelonephritis Urine culture obtained on 01/06, pseudomonas aeruginosa pansensitive - started on Rocephin on 01/07, transitioned to cefepime 01/08. Dose increased for ongoing leukocytosis. Urine output WNL. Denies flank pain. (5) Constipation: Qualifiers: Constipation type: unspecified constipation type Qualified Code(s): K59.00 - Constipation, unspecified Code(s): K59.00 - Constipation, unspecified Status: Acute Assessment and Plan: Incidental finding of fecal impaction with moderate stool burden on imaging. Patient underwent digital rectal exam with disimpaction performed by ER provider. There was still stool retained above the level at could be disimpacted. Abdomen/pelvis CT on admission: moderate retained fecal material throughout the colon with impaction in the rectum Continue Metamucil BID, and senna BID Monitor I/O Abdomen/pelvis CT: readministration of significant fecal stasis distending the rectum and extending retrograde to the level of the splenic flexure, consistent with fecal impaction - soap suds enema x1. Per RN patient had a large bowel movement following KUB 01/13/2025 with nonspecific bowel gas pattern with moderate stool at the distal rectum. Repeated enema (6) Supratherapeutic INR: Code(s): R79.1 - Abnormal coagulation profile Status: Acute Assessment and Plan: Patient on anticoagulation for prior DVT INR 5.8 on admission, now downtrending at 2.0 on am labs INR likely elevated given acute sepsis Holding warfarin 5 mg daily, resume today on 3 mg daily. Monitor INR as patient will likely need to increase back to 5 overtime. Continue to trend No signs of active bleeding Increase Coumadin to 4 mg daily (7) Pressure ulcer: Qualifiers: Pressure injury location: unspecified location Pressure injury stage: unspecified pressure injury stage Qualified Code(s): L89.90 - Pressure ulcer of unspecified site, unspecified stage Code(s): L89.90 - Pressure ulcer of unspecified site, unspecified stage Status: Acute Assessment and Plan: According to documentation from [facility] for sepsis pneumonia sacral ulcers and right upper extremity DVT. 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 According to the ER note the patient's family was debating hospice versus surgical intervention for the patient's sacral wounds. Wound Care nurses felt that there is no need for further debridement of the patient's wounds in the appear to be in good condition. Continue wound care Previous culture from sacral decubitus ulcer reviewed from 11/05/2024. Doxycycline is intermediate. Will switch to Bactrim which was susceptible. Also was susceptible to ceftaroline linezolid daptomycin vancomycin and clindamycin (8) Anemia: Qualifiers: Anemia type: other cause Other causes of anemia: chronic disease, other Qualified Code(s): D63.8 - Anemia in other chronic diseases classified elsewhere Code(s): D64.9 - Anemia, unspecified Status: Acute Assessment and Plan: H/H 8.9/ 27.2 on admission, no signs of active bleeding - H/H remains stable at 8.6/26.4 on am labs - Iron panel: Iron 20, TIBC 119, % sat 17, Ferritin 293 - B12 and folate WNL - Started on iron supplementation (9) BPH (benign prostatic hyperplasia): Qualifiers: Lower urinary tract symptom presence: symptoms present Lower urinary tract symptom detail: urinary retention Qualified Code(s): N40.1 - Benign prostatic hyperplasia with lower urinary tract symptoms; R33.8 - Other retention of urine Code(s): N40.0 - Benign prostatic hyperplasia without lower urinary tract symptoms Status: Acute Assessment and Plan: Chronic, continue Flomax and finasteride Chronic Potter catheter in place, exchanged in the ED. (10) Hypotension due to hypovolemia: Code(s): E86.1 - Hypovolemia Status: Acute Assessment and Plan: Chronic, continue home midodrine 5 mg TID. Patient was mildly hypotensive in the ER likely related to some volume depletion, systolic blood pressures of 92/64. After fluid bolus patient's blood pressures normalized. Blood pressures remain stable at this time. Continue to monitor. (11) Severe protein-calorie malnutrition: Code(s): E43 - Unspecified severe protein-calorie malnutrition Status: Acute Assessment and Plan: Supplement per nutrition. Subjective Date/time seen: 01/14/25 14:12 Interval history: No overnight events. Patient mildly confused. Remains afebrile. Chart reviewed. Pressure ulcers in hip and back reported Review of Systems Review of Systems: All systems reviewed & are unremarkable except as noted in HPI and below Exam Narrative: General: male in no acute respiratory distress who is nontoxic appearing, lying semi recumbent in bed. HEENT: Normocephalic. Atraumatic. Extraocular movement intact. Sclera clear and anicteric. No facial asymmetry. Chest: Lungs are diminished to auscultation bilaterally. PICC line in-situ. CV: Heart was regular rate and rhythm. Abd: Abdomen was soft. Nontender, no guarding. Nondistended. Positive bowel sounds. Ext: No clubbing, cyanosis, or edema. DP pulses bilaterally. Left hand edema extending to the wrist. dressing to BLE. heel protector boots on Neuro: Patient is alert and oriented x2 (self, year). Speech is quiet and garbled. Objective Data Vital Signs Vital Signs: Vital Signs - 24 hr 01/13/25 20:00 01/13/25 21:59 01/14/25 06:00 Temperature 98.0 F 97.4 F L Pulse Rate 71 106 H Respiratory Rate 16 20 Blood Pressure 116/68 120/68 Pulse Oximetry 100 100 Oxygen Delivery Room Air 01/14/25 14:00 Temperature 97.2 F L Pulse Rate 96 Respiratory Rate 18 Blood Pressure 117/84 Pulse Oximetry 96 Oxygen Delivery Intake/Output Intake/Output: Intake & Output 01/11/25 01/12/25 01/13/25 01/14/25 23:59 23:59 23:59 23:59 Intake Total 958 1308 500 350 Output Total 1250 1000 1300 750 Balance -292 308 -800 -400 Meds/Results Medications: Active Medications Generic Name Dose Route Start Last Admin Trade Name Freq PRN Reason Stop Dose Admin Acetaminophen 650 mg 01/06/25 15:33 01/09/25 05:16 Acetaminophen 325 Mg Tablet PO 650 mg Q4H PRN Administration Mild Pain (1-3) or Fever Hydrocodone Bitart/Acetaminophen 1 tab 01/06/25 22:25 01/14/25 09:25 Hydrocodone/Acetaminophen (*Crx) 5-325 Mg Tablet PO 1 tab BID JIMMY Administration Aripiprazole 10 mg 01/07/25 09:00 01/14/25 09:25 Aripiprazole 10 Mg Tablet PO 10 mg DAILY JIMMY Administration Aspirin 81 mg 01/07/25 09:00 01/14/25 09:24 Aspirin 81 Mg Chewable Tablet PO 81 mg DAILY JIMMY Administration Dextrose 12.5 gm 01/06/25 15:33 Dextrose 50% 25 Gm/50 Ml Syringe IV PUSH PRN PRN Hypoglycemia Protocol Doxycycline Hyclate 100 mg 01/13/25 13:30 01/14/25 09:25 Doxycycline Hyclate 100 Mg Tablet PO 100 mg Q12HR JIMMY Administration Ferrous Sulfate 325 mg 01/07/25 17:00 01/14/25 09:24 Ferrous Sulfate [address] PO 325 mg BID JIMMY Administration Finasteride 5 mg 01/07/25 09:00 01/14/25 09:24 Finasteride 5 Mg Tablet PO 5 mg DAILY JIMMY Administration Glucagon 1 mg 01/06/25 15:33 Glucagon For Inj 1 Mg Vial IM PRN PRN Hypoglycemia Protocol Glucose 15 gm 01/06/25 15:33 Glucose Oral Gel 15 Gm Of Glucse In 37.5 Gm Tube PO PRN PRN Hypoglycemia Protocol Dextrose 1,000 mls @ 100 mls/hr 01/06/25 15:33 Dextrose 5% 1,000 Ml IVPB PRN PRN Hypoglycemia Protocol Cefepime HCl 2 gm in 50 mls @ 100 mls/hr 01/11/25 23:00 01/14/25 09:26 Maxipime 2 Gm/Ns 50 Ml IVPB 100 mls/hr Q12HR JIMMY Administration Meloxicam 15 mg 01/07/25 09:00 01/14/25 09:24 Meloxicam 7.5 Mg Tablet PO 15 mg DAILY JIMMY Administration Methimazole 5 mg 01/07/25 09:00 01/14/25 09:24 Methimazole 5 Mg Tab PO 5 mg BID JIMMY Administration Metronidazole 500 mg 01/06/25 22:25 01/14/25 12:55 Metronidazole 500 Mg Tablet PO 500 mg TID JIMMY Administration Midodrine 5 mg 01/06/25 22:20 01/14/25 12:55 Midodrine Hcl 2.5 Mg Tablet PO 5 mg TID JIMMY Administration Mirtazapine 15 mg 01/06/25 22:20 01/13/25 22:11 Mirtazapine 15 Mg Tablet PO 15 mg HS JIMMY Administration Ondansetron HCl 4 mg 01/06/25 15:33 Ondansetron Inj 4 Mg/2 Ml Vial IV PUSH Q4H PRN Nausea Polyethylene Glycol 17 gm 01/11/25 09:00 01/14/25 09:22 Polyethylene Glycol 3350 17 Gm Powd.Pack PO 17 gm QAM JIMMY Administration Senna 8.6 mg 01/07/25 09:00 01/14/25 09:24 Sennosides 8.6 Mg Tablet PO 8.6 mg BID JIMMY Administration Sodium Chloride 10 ml 01/06/25 22:00 01/14/25 12:56 Central Line Flush IV PUSH 10 ml Q8HR JIMMY Administration Sodium Chloride 10 ml 01/06/25 16:42 Central Line Flush IV PUSH PRN PRN with TPN bag changes Sodium Chloride 20 ml 01/06/25 16:42 01/13/25 04:30 Central Line Flush IV PUSH 20 ml PRN PRN Administration after blood draws Tamsulosin HCl 0.4 mg 01/07/25 09:00 01/14/25 09:24 Tamsulosin Hcl 0.4 Mg Capsule PO 0.4 mg DAILY JIMMY Administration Trihexyphenidyl HCl 2 mg 01/06/25 22:25 01/14/25 09:25 Trihexyphenidyl Hcl 2 Mg Tablet PO 2 mg BID JIMMY Administration Vitamin B Complex/Folic Acid 1 cap 01/07/25 09:00 01/14/25 09:26 Vitamin B Cmplx/Vit C/Folic Ac 1 Capsule PO 1 cap DAILY JIMMY Administration Warfarin Sodium 3 mg 01/12/25 17:00 01/13/25 17:13 Warfarin (*Pbkc) 3 Mg Tablet PO 3 mg DAILY@1700 JIMMY Administration Radiology Results: ITS Impressions Venous Doppler Study 01/08/25 17:36 IMPRESSION: Partial compression of the cephalic vein which may indicate thrombosis. Axillary vein is not evaluated. Other veins are unremarkable. Abdomen/Pelvis CT 01/10/25 17:56 IMPRESSION: Findings suggesting pyelonephritis, as detailed above. Redemonstration of significant fecal stasis distending the rectum and extending retrograde to the level of the splenic flexure, consistent with fecal impaction. Chest X-Ray 01/12/25 11:48 IMPRESSION: Right basilar atelectasis versus pneumonia. Left basilar atelectatic changes. No change from previous examination. Abdomen X-Ray 01/13/25 06:08 Impression: Nonspecific bowel gas pattern. Moderate stool at the distal rectum. Advanced degenerative change of both hip joints. Labs Labs: Laboratory Results - last 24 hr 01/14/25 01/14/25 01/14/25 05:57 08:04 12:20 PT 21.3 H INR 1.9 POC Capillary Glucose 75 105
[2025-01-14] MEDS: WARFARIN (*PBKC) 4 MG TABLET PO (16:51)
[2025-01-14] MEDS: VANCOMYCIN 1,500 MG/NS 500 ML 1,500 MG/500 ML BAG 250 MG IVPB (16:52)
[2025-01-14] MEDS: MIRTAZAPINE 15 MG TABLET PO (21:11)
[2025-01-14 21:14] VITALS: BP 125/68; PULSE 94; RESP 20; TEMP 35.9; O2SAT 100
[2025-01-15 04:56] LABS: Basophils Absolute Auto 0.1 K/mm3 (0.0-0.1); Basophils Percent Auto 0.5 % (0.2-1.2); Eosinophils Absolute Auto 0.1 K/mm3 (0-0.3); Eosinophils Percent Auto 0.4 % (0-4.4); Hematocrit 25.7 % (42.0-52.0); Hemoglobin 8.3 g/dL (14.0-18.0); Immature Granulocyte Absolute 0.09 K/mm3 (0.00-0.031); Immature Granulocyte Percent A 0.6 % (0-0.5); Lymphocytes Absolute Auto 1.82 K/mm3 (0.9-3.2); Lymphocytes Percent Auto 11.5 % (18.3-44.2); Mean Corpuscular HGB Conc 32.3 g/dl (32-36); Mean Corpuscular Hemoglobin 28.6 pg (26-34); Mean Corpuscular Volume 88.6 fl (80-100); Mean Platelet Volume 8.8 fl (7.4-10.4); Monocytes Absolute Auto 0.9 K/mm3 (0.1-0.6); Neutrophils Absolute Auto 12.8 K/mm3 (1.3-6.7); Platelet Count Result 680 k/mm3 (150-375); White Blood Count 15.8 K/mm3 (4.5-10.0)
[2025-01-15 05:08] LABS: INR 1.9; Prothrombin Time 21.2 Seconds (11.1-14.7)
[2025-01-15 05:09] LABS: Alanine Aminotransferase 21 U/L (6-50); Albumin Level 2.4 g/dL (3.5-5.1); Alkaline Phosphatase 101 U/L (38-126); Anion Gap 1 mmol/L (4-12); Aspartate Amino Transferase 36 U/L (17-59); Bilirubin,Total 0.2 mg/dL (0.2-1.3); Blood Urea Nitrogen 20 mg/dL (9-20); CRP 5.9 mg/dL (<1.0); Calcium 8.4 mg/dL (8.4-10.2); Carbon Dioxide 29 mmol/L (22-30); Chloride 106 mmol/L (98-107); Estimated CRCL calculation 71 ml/min; Estimated Glomerular Filt Rate > 60; Glucose 73 mg/dL (65-110); Potassium 4.4 mmol/L (3.4-5.0); Sodium 136 mmol/L (137-145); Total Protein 5.9 g/dL (6.3-8.2)
[2025-01-15] MEDS: CENTRAL LINE FLUSH 10 ML IV PUSH ×2 (05:30→21:27)
[2025-01-15 05:44] VITALS: BP 104/66; PULSE 85; RESP 20; TEMP 36.3; O2SAT 100
[2025-01-15 07:03] LABS: MRSA (PCR) DETECTED (NOT DETECTE)
[2025-01-15 08:00] VITALS: PULSE 85; RESP 20; O2SAT 100
[2025-01-15] MEDS: polyethylene glycoL 3350 17 GM POWD.PACK PO (08:40)
[2025-01-15] MEDS: ARIPiprazole 10 MG TABLET PO (08:40)
[2025-01-15] MEDS: metroNIDAZOLE 500 MG TABLET PO ×3 (08:40→18:02)
[2025-01-15] MEDS: MELOXICAM 7.5 MG TABLET 15 MG PO (08:40)
[2025-01-15] MEDS: CEFEPIME 2 GM/NS 50 ML 2 GM/50 ML BAG IVPB ×2 (08:40→21:12)
[2025-01-15] MEDS: methiMAzole 5 MG TAB PO ×2 (08:40→18:02)
[2025-01-15] MEDS: ASPIRIN 81 MG CHEWABLE TABLET PO (08:40)
[2025-01-15] MEDS: FINASTERIDE 5 MG TABLET PO (08:41)
[2025-01-15] MEDS: MIDODRINE HCL 2.5 MG TABLET 5 MG PO ×3 (08:41→18:02)
[2025-01-15] MEDS: FERROUS SULFATE 325 MG TABLET DR PO ×2 (08:41→18:02)
[2025-01-15] MEDS: SENNOSIDES 8.6 MG TABLET PO ×2 (08:41→18:03)
[2025-01-15] MEDS: TRIHEXYPHENIDYL HCL 2 MG TABLET PO ×2 (08:41→18:03)
[2025-01-15] MEDS: HYDROcodone/acetaminophen (*CRX) 5-325 MG TABLET 1 TAB PO ×2 (08:41→18:02)
[2025-01-15] MEDS: VITAMIN B CMPLX/VIT C/FOLIC AC 1 CAPSULE 1 CAP PO (08:41)
[2025-01-15] MEDS: TAMSULOSIN HCL 0.4 MG CAPSULE PO (08:41)
--- NOTE | 2025-01-15 11:27 | PM.IMPN ---
Progress Note: A&P Assessment and Plan (1) Sepsis: Qualifiers: Sepsis type: sepsis due to unspecified organism Sepsis acute organ dysfunction status: without acute organ dysfunction Qualified Code(s): A41.9 - Sepsis, unspecified organism Code(s): A41.9 - Sepsis, unspecified organism Status: Acute Assessment and Plan: Meets SIRS criteria: leukocytosis, tachycardia, and tachypnea in the setting of likely pneumonia and or UTI. - lactic acid: 1.5 - Received sepsis fluids in ED - blood cultures drawn on 01/06, NGTD - UA concerning for infection, culture obtained on 01/06: pseudomonas aeruginosa - CXR: HMD PICC line tip at the cephalad superior vena cava. Opacities in the medial aspect bilateral lower lung zones which could represent atelectasis or pneumonia. - Chest CT: right lower lobe pneumonia - Repeat abdomen/pelvis CT 01/10/2025 showing pyelonephritis and fecal impaction - See plan for constipation, pneumonia and UTI below -wound culture mixed bacterial gonzalo Hemodynamically stable. WBC remains elevated in the 20s, but did slightly downtrend. Cefepime started 01/08/2025. Remains on Flagyl. Azithromycin course completed. Added on doxycycline 01/13/2025 for MRSA coverage Previous culture from sacral decubitus ulcer reviewed from 11/05/2024. MRSA grew along with Bacteroides fragilis. For MRSA Doxycycline is intermediate. Will switch to Bactrim which was susceptible. Also was susceptible to ceftaroline linezolid daptomycin vancomycin and clindamycin (2) Pneumonia: Qualifiers: Laterality: right Lung location: lower lobe of lung Pneumonia type: due to unspecified organism Qualified Code(s): J18.9 - Pneumonia, unspecified organism Code(s): J18.9 - Pneumonia, unspecified organism Status: Acute Assessment and Plan: CXR: HMD PICC line tip at the cephalad superior vena cava. Opacities in the medial aspect bilateral lower lung zones which could represent atelectasis or pneumonia. Chest CT: right lower lobe pneumonia - started on CAP tx: azithromycin (completed) ceftriaxone and Flagyl on 01/06, Rocephin transitioned to cefepime 01/08 given pseudomonas on UCx - Viral PCR: Flu/COVID/RSV negative - legionella and pneumococcal negative, mycoplasma pending - no supplemental O2 requirement - Monitor vital signs, I&Os, neuro status and patient is a fall risk - Follow WBC, serum electrolytes, temperature curves and cultures - Send sputum cultures Denies shortness of breath. Continues denies shortness of breath. Lungs remain diminished. Repeat CXR showed right basilar atelectasis versus pneumonia, left basilar atelectatic changes, no change from previous examination. (3) UTI (urinary tract infection): Qualifiers: Hematuria presence: with hematuria Urinary tract infection type: acute cystitis Qualified Code(s): N30.01 - Acute cystitis with hematuria Code(s): N39.0 - Urinary tract infection, site not specified Status: Acute Assessment and Plan: - UA: cloudy appearance with 1+ protein, trace ketones, 3+ blood, positive nitrates, 2+ leukocytes, 51-100 RBC, 21-50 WBC, rare bacteria - Potter catheter in place with dark cloudy urine subsequently the patient's Potter catheter was exchanged in the ER - CT of the abdomen pelvis was obtained which showed possible cystitis versus chronic outlet obstruction. - UC obtained on 01/06, pseudomonas aeruginosa pansensitive - no previous micro to reviewed - started on Rocephin on 01/07, transitioned to cefepime 01/08 (4) Pyelonephritis: Code(s): N12 - Tubulo-interstitial nephritis, not specified as acute or chronic Status: Acute Assessment and Plan: Abdomen/pelvis CT now showing pyelonephritis Urine culture obtained on 01/06, pseudomonas aeruginosa pansensitive - started on Rocephin on 01/07, transitioned to cefepime 01/08. Dose increased for ongoing leukocytosis. Urine output WNL. Denies flank pain. (5) Constipation: Qualifiers: Constipation type: unspecified constipation type Qualified Code(s): K59.00 - Constipation, unspecified Code(s): K59.00 - Constipation, unspecified Status: Acute Assessment and Plan: Incidental finding of fecal impaction with moderate stool burden on imaging. Patient underwent digital rectal exam with disimpaction performed by ER provider. There was still stool retained above the level at could be disimpacted. Abdomen/pelvis CT on admission: moderate retained fecal material throughout the colon with impaction in the rectum Continue Metamucil BID, and senna BID Monitor I/O Abdomen/pelvis CT: readministration of significant fecal stasis distending the rectum and extending retrograde to the level of the splenic flexure, consistent with fecal impaction - soap suds enema x1. Per RN patient had a large bowel movement following KUB 01/13/2025 with nonspecific bowel gas pattern with moderate stool at the distal rectum. Repeated enema (6) Supratherapeutic INR: Code(s): R79.1 - Abnormal coagulation profile Status: Acute Assessment and Plan: Patient on anticoagulation for prior DVT INR 5.8 on admission, now downtrending at 2.0 on am labs INR likely elevated given acute sepsis Holding warfarin 5 mg daily, resume today on 3 mg daily. Monitor INR as patient will likely need to increase back to 5 overtime. Continue to trend No signs of active bleeding Increase Coumadin to 4 mg daily (7) Pressure ulcer: Qualifiers: Pressure injury location: unspecified location Pressure injury stage: unspecified pressure injury stage Qualified Code(s): L89.90 - Pressure ulcer of unspecified site, unspecified stage Code(s): L89.90 - Pressure ulcer of unspecified site, unspecified stage Status: Acute Assessment and Plan: According to documentation from senior living patient was admitted to senior living 11/16/2024 from [facility] for sepsis pneumonia sacral ulcers and right upper extremity DVT. 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 According to the ER note the patient's family was debating hospice versus surgical intervention for the patient's sacral wounds. Wound Care nurses felt that there is no need for further debridement of the patient's wounds in the appear to be in good condition. Continue wound care Previous culture from sacral decubitus ulcer reviewed from 11/05/2024. Doxycycline is intermediate. Will switch to Bactrim which was susceptible. Also was susceptible to ceftaroline linezolid daptomycin vancomycin and clindamycin (8) Anemia: Qualifiers: Anemia type: other cause Other causes of anemia: chronic disease, other Qualified Code(s): D63.8 - Anemia in other chronic diseases classified elsewhere Code(s): D64.9 - Anemia, unspecified Status: Acute Assessment and Plan: H/H 8.9/ 27.2 on admission, no signs of active bleeding - H/H remains stable at 8.6/26.4 on am labs - Iron panel: Iron 20, TIBC 119, % sat 17, Ferritin 293 - B12 and folate WNL - Started on iron supplementation (9) BPH (benign prostatic hyperplasia): Qualifiers: Lower urinary tract symptom presence: symptoms present Lower urinary tract symptom detail: urinary retention Qualified Code(s): N40.1 - Benign prostatic hyperplasia with lower urinary tract symptoms; R33.8 - Other retention of urine Code(s): N40.0 - Benign prostatic hyperplasia without lower urinary tract symptoms Status: Acute Assessment and Plan: Chronic, continue Flomax and finasteride Chronic Potter catheter in place, exchanged in the ED. (10) Hypotension due to hypovolemia: Code(s): E86.1 - Hypovolemia Status: Acute Assessment and Plan: Chronic, continue home midodrine 5 mg TID. Patient was mildly hypotensive in the ER likely related to some volume depletion, systolic blood pressures of 92/64. After fluid bolus patient's blood pressures normalized. Blood pressures remain stable at this time. Continue to monitor. (11) Severe protein-calorie malnutrition: Code(s): E43 - Unspecified severe protein-calorie malnutrition Status: Acute Assessment and Plan: Supplement per nutrition. Subjective Date/time seen: 01/15/25 11:27 Interval history: Patient was seen during the morning rounds today No new overnight complaints. Patient mildly confused. Remains afebrile. Review of Systems Review of Systems: Review of systems obtained however unsure how accurate given confusion. During assessment patient denied any complaints. All systems reviewed & are unremarkable except as noted in HPI and below ROS unobtainable: Yes unobtainable due to mental status Exam Narrative: General: male in no acute respiratory distress who is nontoxic appearing, lying semi recumbent in bed. HEENT: Normocephalic. Atraumatic. Extraocular movement intact. Sclera clear and anicteric. No facial asymmetry. Chest: Lungs are diminished to auscultation bilaterally. PICC line in-situ. CV: Heart was regular rate and rhythm. Abd: Abdomen was soft. Nontender, no guarding. Nondistended. Positive bowel sounds. Ext: No clubbing, cyanosis, or edema. DP pulses bilaterally. Left hand edema extending to the wrist. dressing to BLE. heel protector boots on Neuro: Patient is alert and oriented x2 (self, year). Speech is quiet and garbled. Const: Other: Chronically ill-appearing, appears older than stated age, thin body habitus HENMT: Other: Mucous membranes are tacky, teeth are broken off at the gumline the remainder of teeth the democrat been removed, the teeth after remaining are carried, patient has deviation tongue and facial asymmetry Eyes: Other: Pupils are equal and reactive, extraocular movements intact Neck: Other: No JVD, no lymphadenopathy Resp: Other: Shallow respirations, decreased breath sounds at the bases, no increased work of breathing Cardio: Other: Mildly tachycardic, 2+ bilateral radial and pedal pulses, no JVD, no murmur GI: Other: Soft, nontender, nondistended, positive bowel sounds : Other: Potter catheter in place with cloudy yellow urine Back/Spine/Pelvis: Other: Sacral ulcer with exposed bone and tendon please see wound care photos with clean wound beds consistent with chronic stable wound Skin: Other: Patient has unstageable ulcers bilateral hips with soft material colored yellow to dark ann, right heel with overlying eschar that is firm Neuro: Other: Patient is aware that he is in the hospital and is oriented to his name this is reported the patient's baseline. Patient denies any history of stroke this seems to be an accurate given the patient has contractures of his bilateral lower extremities and is unable to move his left upper extremity and the patient has left facial droop, speech is slurred and difficult to understand Extrem: Other: Patient has pitting edema bilateral lower extremities wounds to the right heel as discussed above under skin exam, James is tight in [place] above her bilateral lower extremities, pressure relieving boots in place, flexion contractures at bilateral knees and hips, PICC line in the left upper arm Psych: Other: Pleasantly confused, cooperative Objective Data Vital Signs Vital Signs: Vital Signs - 24 hr 01/14/25 14:00 01/14/25 20:00 01/14/25 21:14 Temperature 36.2 C L 35.9 C L Pulse Rate 96 94 Respiratory Rate 18 20 Blood Pressure 117/84 125/68 Pulse Oximetry 96 100 Oxygen Delivery Room Air 01/15/25 05:44 01/15/25 08:00 Temperature 36.3 C L Pulse Rate 85 85 Respiratory Rate 20 20 Blood Pressure 104/66 Pulse Oximetry 100 100 Oxygen Delivery Room Air Intake/Output Intake/Output: Intake & Output 01/12/25 01/13/25 01/14/25 01/15/25 23:59 23:59 23:59 23:59 Intake Total 1308 500 550 180 Output Total 1000 1300 1500 750 Balance 111 -800 -950 -570 Meds/Results Medications: Active Medications Generic Name Dose Route Start Last Admin Trade Name Freq PRN Reason Stop Dose Admin Acetaminophen 650 mg 01/06/25 15:33 01/09/25 05:16 Acetaminophen 325 Mg Tablet PO 650 mg Q4H PRN Administration Mild Pain (1-3) or Fever Hydrocodone Bitart/Acetaminophen 1 tab 01/06/25 22:25 01/15/25 08:41 Hydrocodone/Acetaminophen (*Crx) 5-325 Mg Tablet PO 1 tab BID JIMMY Administration Aripiprazole 10 mg 01/07/25 09:00 01/15/25 08:40 Aripiprazole 10 Mg Tablet PO 10 mg DAILY JIMMY Administration Aspirin 81 mg 01/07/25 09:00 01/15/25 08:40 Aspirin 81 Mg Chewable Tablet PO 81 mg DAILY JIMMY Administration Dextrose 12.5 gm 01/06/25 15:33 Dextrose 50% 25 Gm/50 Ml Syringe IV PUSH PRN PRN Hypoglycemia Protocol Ferrous Sulfate 325 mg 01/07/25 17:00 01/15/25 08:41 Ferrous Sulfate [address] PO 325 mg BID JIMMY Administration Finasteride 5 mg 01/07/25 09:00 01/15/25 08:41 Finasteride 5 Mg Tablet PO 5 mg DAILY JIMMY Administration Glucagon 1 mg 01/06/25 15:33 Glucagon For Inj 1 Mg Vial IM PRN PRN Hypoglycemia Protocol Glucose 15 gm 01/06/25 15:33 Glucose Oral Gel 15 Gm Of Glucse In 37.5 Gm Tube PO PRN PRN Hypoglycemia Protocol Dextrose 1,000 mls @ 100 mls/hr 01/06/25 15:33 Dextrose 5% 1,000 Ml IVPB PRN PRN Hypoglycemia Protocol Cefepime HCl 2 gm in 50 mls @ 100 mls/hr 01/11/25 23:00 01/15/25 08:40 Maxipime 2 Gm/Ns 50 Ml IVPB 100 mls/hr Q12HR JIMMY Administration Vancomycin HCl 1,250 mg in 250 mls @ 166.667 mls/hr 01/15/25 11:00 Vancomycin 1,250 Mg/Ns 250 Ml IVPB Q18H JIMMY Meloxicam 15 mg 01/07/25 09:00 01/15/25 08:40 Meloxicam 7.5 Mg Tablet PO 15 mg DAILY [facility] Administration Methimazole 5 mg 01/07/25 09:00 01/15/25 08:40 Methimazole 5 Mg Tab PO 5 mg BID [facility] Administration Metronidazole 500 mg 01/06/25 22:25 01/15/25 08:40 Metronidazole 500 Mg Tablet PO 500 mg TID [facility] Administration Midodrine 5 mg 01/06/25 22:20 01/15/25 08:41 Midodrine Hcl 2.5 Mg Tablet PO 5 mg TID [facility] Administration Mirtazapine 15 mg 01/06/25 22:20 01/14/25 21:11 Mirtazapine 15 Mg Tablet PO 15 mg HS [facility] Administration Ondansetron HCl 4 mg 01/06/25 15:33 Ondansetron Inj 4 Mg/2 Ml Vial IV PUSH Q4H PRN Nausea Polyethylene Glycol 17 gm 01/11/25 09:00 01/15/25 08:40 Polyethylene Glycol 3350 17 Gm Powd.Pack PO 17 gm QAM [facility] Administration Senna 8.6 mg 01/07/25 09:00 01/15/25 08:41 Sennosides 8.6 Mg Tablet PO 8.6 mg BID [facility] Administration Sodium Chloride 10 ml 01/06/25 22:00 01/15/25 05:30 Central Line Flush IV PUSH 10 ml Q8HR JIMMY Administration Sodium Chloride 10 ml 01/06/25 16:42 Central Line Flush IV PUSH PRN PRN with TPN bag changes Sodium Chloride 20 ml 01/06/25 16:42 01/13/25 04:30 Central Line Flush IV PUSH 20 ml PRN PRN Administration after blood draws Tamsulosin HCl 0.4 mg 01/07/25 09:00 01/15/25 08:41 Tamsulosin Hcl 0.4 Mg Capsule PO 0.4 mg DAILY [facility] Administration Trihexyphenidyl HCl 2 mg 01/06/25 22:25 01/15/25 08:41 Trihexyphenidyl Hcl 2 Mg Tablet PO 2 mg BID JIMMY Administration Vitamin B Complex/Folic Acid 1 cap 01/07/25 09:00 01/15/25 08:41 Vitamin B Cmplx/Vit C/Folic Ac 1 Capsule PO 1 cap DAILY JIMMY Administration Warfarin Sodium 4 mg 01/14/25 17:00 01/14/25 16:51 Warfarin (*Pbkc) 4 Mg Tablet PO 4 mg DAILY@1700 JIMMY Administration Radiology Results: ITS Impressions Venous Doppler Study 01/08/25 17:36 IMPRESSION: Partial compression of the cephalic vein which may indicate thrombosis. Axillary vein is not evaluated. Other veins are unremarkable. Abdomen/Pelvis CT 01/10/25 17:56 IMPRESSION: Findings suggesting pyelonephritis, as detailed above. Redemonstration of significant fecal stasis distending the rectum and extending retrograde to the level of the splenic flexure, consistent with fecal impaction. Chest X-Ray 01/12/25 11:48 IMPRESSION: Right basilar atelectasis versus pneumonia. Left basilar atelectatic changes. No change from previous examination. Abdomen X-Ray 01/13/25 06:08 Impression: Nonspecific bowel gas pattern. Moderate stool at the distal rectum. Advanced degenerative change of both hip joints. Labs Labs: Laboratory Results - last 24 hr 01/14/25 01/15/25 12:20 04:50 WBC 15.8 H RBC 2.90 L Hgb 8.3 L Hct 25.7 L MCV 88.6 MCH 28.6 MCHC 32.3 RDW 16.0 H Plt Count 680 H MPV 8.8 Immature Gran % (Auto) 0.6 H Neut % (Auto) 81.0 H Lymph % (Auto) 11.5 L [place] % (Auto) 6.0 Eos % (Auto) 0.4 Baso % (Auto) 0.5 Lymph # (Auto) 1.82 [place] # (Auto) 0.9 H Eos # (Auto) 0.1 Baso # (Auto) 0.1 Abs Immat Gran (auto) 0.09 H Absolute Neuts (auto) 12.8 H Absolute Nucleated RBC 0.000 Nucleated RBC % 0.0 PT 21.2 H INR 1.9 Sodium 136 L Potassium 4.4 Chloride 106 Carbon Dioxide 29 Anion Gap 1 L BUN 20 Creatinine 0.68 L Estim Creat Clear Calc 71 Estimated GFR > 60 Glucose 73 POC Capillary Glucose 105 Calcium 8.4 Magnesium 2.0 Total Bilirubin 0.2 AST 36 ALT 21 Alkaline Phosphatase 101 C-Reactive Protein 5.9 H Total Protein 5.9 L Albumin 2.4 L Nasal MRSA (PCR) Detected A* Quality VTE Prophylaxis VTE prophylaxis: pharmacologic ordered
[2025-01-15] MEDS: VANCOMYCIN 1,250 MG/NS 250 ML 1,250 MG/250 ML BAG 166.67 MG IVPB (12:07)
[2025-01-15 14:00] VITALS: BP 111/71; PULSE 85; RESP 18; TEMP 37.6; O2SAT 99
[2025-01-15] MEDS: WARFARIN (*PBKC) 4 MG TABLET PO (18:03)
[2025-01-15] MEDS: MIRTAZAPINE 15 MG TABLET PO (21:12)
[2025-01-15 21:17] VITALS: BP 100/63; PULSE 89; RESP 20; TEMP 36.3; O2SAT 98
[2025-01-16] MEDS: ACETAMINOPHEN 325 MG TABLET 650 MG PO (02:55)
[2025-01-16 05:28] LABS: Vancomycin Trough 13.5 ug/mL (10.0-20.0)
[2025-01-16 05:34] LABS: Estimated CRCL calculation 68 ml/min; Estimated Glomerular Filt Rate > 60; INR 1.9; Prothrombin Time 21.9 Seconds (11.1-14.7)
[2025-01-16] MEDS: VANCOMYCIN 1,000 MG/NS 250 ML 1,000 MG/250 ML BAG 250 MG IVPB ×2 (05:50→17:50)
[2025-01-16] MEDS: CENTRAL LINE FLUSH 10 ML IV PUSH ×2 (05:50→21:26)
[2025-01-16 05:51] VITALS: BP 118/85; PULSE 74; RESP 16; TEMP 36.2; O2SAT 100
[2025-01-16 08:00] VITALS: PULSE 74; RESP 16; O2SAT 100
--- NOTE | 2025-01-16 08:08 | P.PNIM_ITS ---
Progress Note: A&P Assessment and Plan (1) Sepsis: Qualifiers: Sepsis acute organ dysfunction status: without acute organ dysfunction Sepsis type: sepsis due to unspecified organism Qualified Code(s): A41.9 - S epsis, unspecified organism Code(s): A41.9 - Sepsis, unspecified organism Status: Acute Assessment and Plan: Meets SIRS criteria: leukocytosis, tachycardia, and tachypnea in the setting of likely pneumonia and or UTI. * lactic acid: 1.5 * Received sepsis fluids in ED * blood cultures drawn on 01/06 - NGTD * UA concerning for infection, culture obtained on 01/06: pseudomonas aeruginosa * CXR: HMD PICC line tip at the cephalad superior vena cava. Opacities in the m edial aspect bilateral lower lung zones which could represent atelectasis or pneumonia. * Chest CT: right lower lobe pneumonia * Repeat abdomen/pelvis CT 01/10/2025 showing pyelonephritis and fecal impaction * See plan for constipation, pneumonia and UTI below * wound culture mixed bacterial gonzalo * Hemodynamically stable. * Cefepime started 01/08/2025. Remains on Flagyl. Azithromycin completed. Ad ded on doxycycline 01/13/2025 for MRSA coverage * L Hip wound culture taken on 01/13/2025 showed growth of P. Aeruginosa * Continue antibiotics (2) Pneumonia: Qualifiers: Laterality: right Lung location: lower lobe of lung Pneumonia type: due to unspecified organism Qualified Code(s): J18.9 - Pneumonia, unspecified organism Code(s): J18.9 - Pneumonia, unspecified organism Status: Acute Assessment and Plan: CXR: HMD PICC line tip at the cephalad superior vena cava. Opacities in the medial aspect bilateral lower lung zones which could represent atelectasis or pneumonia. Chest CT: right lower lobe pneumonia * started on CAP tx: azithromycin (completed) ceftriaxone and Flagyl on 01/06, Rocephin transitioned to cefepime 01/08 given pseudomonas on UCx * Viral PCR: Flu/COVID/RSV negative * legionella and pneumococcal negative, mycoplasma pending * no supplemental O2 requirement * Monitor vital signs, I&Os, neuro status and patient is a fall risk * Follow WBC, serum electrolytes, temperature curves and cultures * Denies shortness of breath. Continues denies shortness of breath. Lungs remain diminished. * Repeat CXR: right basilar atelectasis versus pneumonia, left basilar atelectatic changes, no change from previous examination. * Continue antibiotics (3) UTI (urinary tract infection): Qualifiers: Hematuria presence: with hematuria Urinary tract infection type: acute cystitis Qualified Code(s): N30.01 - Acute cystitis with hematuria Code(s): N39.0 - Urinary tract infection, site not specified Status: Acute Assessment and Plan: * UA: cloudy appearance with 1+ protein, trace ketones, 3+ blood, positive nitrates, 2+ leukocytes, 51-100 RBC, 21-50 WBC, rare bacteria * Potter catheter in place with dark cloudy urine subsequently the patient's Potter catheter was exchanged in the ER * CT of the abdomen pelvis was obtained which showed possible cystitis versus chronic outlet obstruction. * UC obtained on 01/06, pseudomonas aeruginosa pansensitive * no previous micro to reviewed * started on Rocephin on 01/07, transitioned to cefepime 01/08 * Continue IV antibiotics (4) Pyelonephritis: Code(s): N12 - Tubulo-interstitial nephritis, not specified as acute or chronic Status: Acute Assessment and Plan: * Abdomen/pelvis CT now showing pyelonephritis * Urine culture obtained on 01/06, pseudomonas aeruginosa pansensitive * Started on Rocephin on 01/07, transitioned to cefepime 01/08. Dose increased for ongoing leukocytosis. * Urine output WNL. Denies flank pain. (5) Constipation: Qualifiers: Constipation type: unspecified constipation type Qualified Code(s): K59.00 - Constipation, unspecified Code(s): K59.00 - Constipation, unspecified Status: Acute Assessment and Plan: * Incidental finding of fecal impaction with moderate stool burden on imaging. * Patient underwent digital rectal exam with disimpaction performed by ER provider. There was still stool retained above the level at could be disimpacted. * Abdomen/pelvis CT on admission: moderate retained fecal material throughout the colon with impaction in the rectum * Continue Metamucil BID, and senna BID * Monitor I/O * Abdomen/pelvis CT: readministration of significant fecal stasis distending the rectum and extending retrograde to the level of the splenic flexure, consistent with fecal impaction * Soap suds enema x1. Per RN patient had a large bowel movement following * KUB 01/13/2025 with nonspecific bowel gas pattern with moderate stool at the distal rectum. Repeated enema (6) Supratherapeutic INR: Code(s): R79.1 - Abnormal coagulation profile Status: Acute Assessment and Plan: * Patient on anticoagulation for prior DVT * INR 5.8 on admission, now downtrending at 2.0 on am labs * INR likely elevated given acute sepsis * Holding warfarin 5 mg daily, resume today on 3 mg daily. Monitor INR as patient will likely need to increase back to 5 overtime. * Continue to trend * No signs of active bleeding * Increase Coumadin to 4 mg daily * 01/16: INR 1.9 (7) Pressure ulcer: Qualifiers: Pressure injury location: unspecified location Pressure injury stage: unspecified pressure injury stage Qualified Code(s): L89.90 - Pressure ulcer of unspecified site, unspecified stage Code(s): L89.90 - Pressure ulcer of unspecified site, unspecified stage Status: Acute Assessment and Plan: * According to documentation from detention patient was admitted to detention 11/16/2024 from [facility] for sepsis pneumonia sacral ulcers and right upper extremity DVT. 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 * According to the ER note the patient's family was debating hospice versus surgical intervention for the patient's sacral wounds. Wound Care nurses felt that there is no need for further debridement of the patient's wounds in the appear to be in good condition. * Previous culture from sacral decubitus ulcer reviewed from 11/05/2024. Doxycycline is intermediate. Will switch to Bactrim which was susceptible. Also was susceptible to ceftaroline linezolid daptomycin vancomycin and clindamycin * Continue wound care (8) Anemia: Qualifiers: Anemia type: other cause Other causes of anemia: chronic disease, other Qualified Code(s): D63.8 - Anemia in other chronic diseases classified elsewhere Code(s): D64.9 - Anemia, unspecified Status: Acute Assessment and Plan: H/H 8.9/ 27.2 on admission, no signs of active bleeding - H/H remains stable at 8.6/26.4 on am labs - Iron panel: Iron 20, TIBC 119, % sat 17, Ferritin 293 - B12 and folate WNL - Started on iron supplementation - 01/16: Hemoglobin 8.7 (9) BPH (benign prostatic hyperplasia): Qualifiers: Lower urinary tract symptom detail: urinary retention Lower urinary tract symptom presence: symptoms present Qualified Code(s): N40.1 - Benign prostatic hyperplasia with lower urinary tract symptoms; R33.8 - Other retention of urine Code(s): N40.0 - Benign prostatic hyperplasia without lower urinary tract symptoms Status: Acute Assessment and Plan: Chronic, continue Flomax and finasteride Chronic Potter catheter in place, exchanged in the ED. (10) Hypotension due to hypovolemia: Code(s): E86.1 - Hypovolemia Status: Acute Assessment and Plan: Chronic, continue home midodrine 5 mg TID. Patient was mildly hypotensive in the ER likely related to some volume depletion, systolic blood pressures of 92/64. After fluid bolus patient's blood pressures normalized. Blood pressures remain stable at this time. Continue to monitor. (11) Severe protein-calorie malnutrition: Code(s): E43 - Unspecified severe protein-calorie malnutrition Status: Acute Assessment and Plan: Supplement per nutrition. Subjective Date/time seen: 01/16/25 08:08 Interval history: Patient has a history of schizophrenia and bipolar disorder, orthostatic hypotension, chronic constipation and BPH who presented to the ER from [facility] over concern for possible infection of chronic pressure ulcers. 01/16/2025. Patient sitting comfortably in bed at time of exam. Denies any CP, SOB, n/v, abdominal pain at this time. Pt was observed eating lunch at time of exam. Patient started on vancomycin for positive MRSA colonization. Leukocytosis improving, hemoglobin stable. No electrolyte abnormalities. Review of Systems Review of Systems: Review of systems obtained however unsure how accurate given confusion. During assessment patient denied any complaints. All systems reviewed & are unremarkable except as noted in HPI and below ROS unobtainable: Yes unobtainable due to mental status Exam Narrative: General: male in no acute respiratory distress who is nontoxic appearing, lying semi recumbent in bed. HEENT: Normocephalic. Atraumatic. Extraocular movement intact. Sclera clear and anicteric. No facial asymmetry. Chest: Lungs are diminished to auscultation bilaterally. PICC line in-situ. CV: Heart was regular rate and rhythm. Abd: Abdomen was soft. Nontender, no guarding. Nondistended. Positive bowel sounds. Ext: No clubbing, cyanosis, or edema. DP pulses bilaterally. Left hand edema extending to the wrist. dressing to BLE. heel protector boots on Neuro: Patient is alert and oriented x2 (self, year). Speech is quiet and garbled. Const: Other: Chronically ill-appearing, appears older than stated age, thin body habitus HENMT: Other: Mucous membranes are tacky, teeth are broken off at the gumline the remainder of teeth the alliance party been removed, the teeth after remaining are carried, patient has deviation tongue and facial asymmetry Eyes: Other: Pupils are equal and reactive, extraocular movements intact Neck: Other: No JVD, no lymphadenopathy Resp: Other: Shallow respirations, decreased breath sounds at the bases, no increased work of breathing Cardio: Other: Mildly tachycardic, 2+ bilateral radial and pedal pulses, no JVD, no murmur GI: Other: Soft, nontender, nondistended, positive bowel sounds : Other: Potter catheter in place with cloudy yellow urine Back/Spine/Pelvis: Other: Sacral ulcer with exposed bone and tendon please see wound care photos with clean wound beds consistent with chronic stable wound Skin: Other: Patient has unstageable ulcers bilateral hips with soft material colored yellow to dark ann, right heel with overlying eschar that is firm Neuro: Other: Patient is aware that he is in the hospital and is oriented to his name this is reported the patient's baseline. Patient denies any history of stroke this seems to be an accurate given the patient has contractures of his bilateral lower extremities and is unable to move his left upper extremity and the patient has left facial droop, speech is slurred and difficult to understand Extrem: Other: Patient has pitting edema bilateral lower extremities wounds to the right heel as discussed above under skin exam, James is tight in [place] above her bilateral lower extremities, pressure relieving boots in place, flexion contractures at bilateral knees and hips, PICC line in the left upper arm Psych: Other: Pleasantly confused, cooperative Objective Data Vital Signs Vital Signs: Vital Signs - 24 hr 01/15/25 14:00 01/15/25 21:17 01/16/25 05:51 Temperature 99.6 F 97.3 F L 97.2 F L Pulse Rate 85 89 74 Respiratory Rate 18 20 16 Blood Pressure 111/71 100/63 118/85 Pulse Oximetry 99 98 100 Intake/Output Intake/Output: Intake & Output 01/13/25 01/14/25 01/15/25 01/16/25 23:59 23:59 23:59 23:59 Intake Total 500 550 230 Output Total 1300 1500 1850 650 Balance -800 -950 -1620 -650 Meds/Results Medications: Active Medications Generic Name Dose Route Start Last Admin Trade Name Freq PRN Reason Stop Dose Admin Acetaminophen 650 mg 01/06/25 15:33 01/16/25 02:55 Acetaminophen 325 Mg Tablet PO 650 mg Q4H PRN Administration Mild Pain (1-3) or Fever Hydrocodone Bitart/Acetaminophen 1 tab 01/06/25 22:25 01/15/25 18:02 Hydrocodone/Acetaminophen (*Crx) 5-325 Mg Tablet PO 1 tab BID JIMMY Administration Aripiprazole 10 mg 01/07/25 09:00 01/15/25 08:40 Aripiprazole 10 Mg Tablet PO 10 mg DAILY JIMMY Administration Aspirin 81 mg 01/07/25 09:00 01/15/25 08:40 Aspirin 81 Mg Chewable Tablet PO 81 mg DAILY JIMMY Administration Dextrose 12.5 gm 01/06/25 15:33 Dextrose 50% 25 Gm/50 Ml Syringe IV PUSH PRN PRN Hypoglycemia Protocol Ferrous Sulfate 325 mg 01/07/25 17:00 01/15/25 18:02 Ferrous Sulfate [address] PO 325 mg BID JIMMY Administration Finasteride 5 mg 01/07/25 09:00 01/15/25 08:41 Finasteride 5 Mg Tablet PO 5 mg DAILY JIMMY Administration Glucagon 1 mg 01/06/25 15:33 Glucagon For Inj 1 Mg Vial IM PRN PRN Hypoglycemia Protocol Glucose 15 gm 01/06/25 15:33 Glucose Oral Gel 15 Gm Of Glucse In 37.5 Gm Tube PO PRN PRN Hypoglycemia Protocol Dextrose 1,000 mls @ 100 mls/hr 01/06/25 15:33 Dextrose 5% 1,000 Ml IVPB PRN PRN Hypoglycemia Protocol Cefepime HCl 2 gm in 50 mls @ 100 mls/hr 01/11/25 23:00 01/15/25 21:12 Maxipime 2 Gm/Ns 50 Ml IVPB 100 mls/hr Q12HR JIMMY Administration Vancomycin HCl 1,000 mg in 250 mls @ 250 mls/hr 01/16/25 06:00 01/16/25 05:50 Vancomycin 1,000 Mg/Ns 250 Ml IVPB 250 mls/hr Q12H JIMMY Administration Meloxicam 15 mg 01/07/25 09:00 01/15/25 08:40 Meloxicam 7.5 Mg Tablet PO 15 mg DAILY JIMMY Administration Methimazole 5 mg 01/07/25 09:00 01/15/25 18:02 Methimazole 5 Mg Tab PO 5 mg BID JIMMY Administration Metronidazole 500 mg 01/06/25 22:25 01/15/25 18:02 Metronidazole 500 Mg Tablet PO 500 mg TID JIMMY Administration Midodrine 5 mg 01/06/25 22:20 01/15/25 18:02 Midodrine Hcl 2.5 Mg Tablet PO 5 mg TID JIMMY Administration Mirtazapine 15 mg 01/06/25 22:20 01/15/25 21:12 Mirtazapine 15 Mg Tablet PO 15 mg HS JIMMY Administration Miscellaneous Information 1 each 01/16/25 00:01 [place] And Flagyl Needs To Be Renewed Or It Will Automatically Discontinue. XX 02/15/25 00:00 CLARIFY JIMMY Ondansetron HCl 4 mg 01/06/25 15:33 Ondansetron Inj 4 Mg/2 Ml Vial IV PUSH Q4H PRN Nausea Polyethylene Glycol 17 gm 01/11/25 09:00 01/15/25 08:40 Polyethylene Glycol 3350 17 Gm Powd.Pack PO 17 gm QAM JIMMY Administration Senna 8.6 mg 01/07/25 09:00 01/15/25 18:03 Sennosides 8.6 Mg Tablet PO 8.6 mg BID JIMMY Administration Sodium Chloride 10 ml 01/06/25 22:00 01/16/25 05:50 Central Line Flush IV PUSH 10 ml Q8HR JIMMY Administration Sodium Chloride 10 ml 01/06/25 16:42 Central Line Flush IV PUSH PRN PRN with TPN bag changes Sodium Chloride 20 ml 01/06/25 16:42 01/13/25 04:30 Central Line Flush IV PUSH 20 ml PRN PRN Administration after blood draws Tamsulosin HCl 0.4 mg 01/07/25 09:00 01/15/25 08:41 Tamsulosin Hcl 0.4 Mg Capsule PO 0.4 mg DAILY JIMMY Administration Trihexyphenidyl HCl 2 mg 01/06/25 22:25 01/15/25 18:03 Trihexyphenidyl Hcl 2 Mg Tablet PO 2 mg BID JIMMY Administration Vitamin B Complex/Folic Acid 1 cap 01/07/25 09:00 01/15/25 08:41 Vitamin B Cmplx/Vit C/Folic Ac 1 Capsule PO 1 cap DAILY JIMMY Administration Warfarin Sodium 4 mg 01/14/25 17:00 01/15/25 18:03 Warfarin (*Pbkc) 4 Mg Tablet PO 4 mg DAILY@1700 JIMMY Administration Radiology Results: ITS Impressions Venous Doppler Study 01/08/25 17:36 IMPRESSION: Partial compression of the cephalic vein which may indicate thrombosis. Axillary vein is not evaluated. Other veins are unremarkable. Abdomen/Pelvis CT 01/10/25 17:56 IMPRESSION: Findings suggesting pyelonephritis, as detailed above. Redemonstration of significant fecal stasis distending the rectum and extending retrograde to the level of the splenic flexure, consistent with fecal impaction. Chest X-Ray 01/12/25 11:48 IMPRESSION: Right basilar atelectasis versus pneumonia. Left basilar atelectatic changes. No change from previous examination. Abdomen X-Ray 01/13/25 06:08 Impression: Nonspecific bowel gas pattern. Moderate stool at the distal rectum. Advanced degenerative change of both hip joints. Labs Labs: Laboratory Results - last 24 hr 01/16/25 05:05 PT 21.9 H INR 1.9 Creatinine 0.71 Estim Creat Clear Calc 68 Estimated GFR > 60 Vancomycin Trough 13.5 Quality VTE Prophylaxis VTE prophylaxis: pharmacologic ordered
[2025-01-16 08:38] LABS: Alanine Aminotransferase 20 U/L (6-50); Albumin Level 2.4 g/dL (3.5-5.1); Alkaline Phosphatase 105 U/L (38-126); Anion Gap 4 mmol/L (4-12); Aspartate Amino Transferase 39 U/L (17-59); Bilirubin,Total 0.2 mg/dL (0.2-1.3); Blood Urea Nitrogen 23 mg/dL (9-20); Calcium 8.5 mg/dL (8.4-10.2); Carbon Dioxide 29 mmol/L (22-30); Chloride 105 mmol/L (98-107); Estimated CRCL calculation 67 ml/min; Estimated Glomerular Filt Rate > 60; Glucose 79 mg/dL (65-110); Potassium 4.4 mmol/L (3.4-5.0); Sodium 138 mmol/L (137-145); Total Protein 5.8 g/dL (6.3-8.2)
[2025-01-16] MEDS: CEFEPIME 2 GM/NS 50 ML 2 GM/50 ML BAG IVPB ×2 (08:51→21:25)
[2025-01-16] MEDS: [UNRECOGNIZED DRUG - REMARK] 1 EACH XX (08:51)
[2025-01-16] MEDS: VITAMIN B CMPLX/VIT C/FOLIC AC 1 CAPSULE 1 CAP PO (08:51)
[2025-01-16] MEDS: MELOXICAM 7.5 MG TABLET 15 MG PO (08:51)
[2025-01-16] MEDS: ASPIRIN 81 MG CHEWABLE TABLET PO (08:51)
[2025-01-16] MEDS: ARIPiprazole 10 MG TABLET PO (08:52)
[2025-01-16] MEDS: methiMAzole 5 MG TAB PO ×2 (08:52→17:43)
[2025-01-16] MEDS: FINASTERIDE 5 MG TABLET PO (08:52)
[2025-01-16] MEDS: FERROUS SULFATE 325 MG TABLET DR PO ×2 (08:52→17:43)
[2025-01-16] MEDS: polyethylene glycoL 3350 17 GM POWD.PACK PO (08:52)
[2025-01-16] MEDS: HYDROcodone/acetaminophen (*CRX) 5-325 MG TABLET 1 TAB PO ×2 (08:52→17:43)
[2025-01-16] MEDS: SENNOSIDES 8.6 MG TABLET PO ×2 (08:52→17:43)
[2025-01-16] MEDS: MIDODRINE HCL 2.5 MG TABLET 5 MG PO ×3 (08:52→17:43)
[2025-01-16] MEDS: metroNIDAZOLE 500 MG TABLET PO ×3 (08:52→17:43)
[2025-01-16] MEDS: TRIHEXYPHENIDYL HCL 2 MG TABLET PO ×2 (08:52→17:43)
[2025-01-16] MEDS: TAMSULOSIN HCL 0.4 MG CAPSULE PO (08:53)
[2025-01-16 09:27] LABS: Basophils Absolute Auto 0.1 K/mm3 (0.0-0.1); Basophils Percent Auto 0.5 % (0.2-1.2); Eosinophils Absolute Auto 0.1 K/mm3 (0-0.3); Eosinophils Percent Auto 1.1 % (0-4.4); Hematocrit 26.7 % (42.0-52.0); Hemoglobin 8.7 g/dL (14.0-18.0); Immature Granulocyte Absolute 0.06 K/mm3 (0.00-0.031); Immature Granulocyte Percent A 0.5 % (0-0.5); Lymphocytes Percent Auto 17.1 % (18.3-44.2); Mean Corpuscular HGB Conc 32.6 g/dl (32-36); Mean Corpuscular Hemoglobin 28.9 pg (26-34); Mean Corpuscular Volume 88.7 fl (80-100); Mean Platelet Volume 8.7 fl (7.4-10.4); Monocytes Percent Auto 7.9 % (2.6-8.5); Neutrophils Percent Auto 72.9 % (45.5-73.1); Platelet Count Result 713 k/mm3 (150-375); Red Blood Count 3.01 M/mm3 (4.6-6.20); White Blood Count 12.3 K/mm3 (4.5-10.0)
[2025-01-16 14:00] VITALS: BP 96/65; PULSE 116; RESP 20; TEMP 37.1; O2SAT 100
[2025-01-16] MEDS: WARFARIN (*PBKC) 4 MG TABLET PO (17:43)
[2025-01-16] MEDS: MIRTAZAPINE 15 MG TABLET PO (21:24)
[2025-01-16 22:00] VITALS: BP 108/80; PULSE 74; RESP 18; TEMP 36.4; O2SAT 98
[2025-01-17] MEDS: VANCOMYCIN 1,000 MG/NS 250 ML 1,000 MG/250 ML BAG 250 MG IVPB (05:47)
[2025-01-17] MEDS: CENTRAL LINE FLUSH 10 ML IV PUSH ×3 (05:48→20:46)
[2025-01-17 05:56] LABS: Basophils Absolute Auto 0.1 K/mm3 (0.0-0.1); Basophils Percent Auto 0.5 % (0.2-1.2); Eosinophils Absolute Auto 0.2 K/mm3 (0-0.3); Eosinophils Percent Auto 1.5 % (0-4.4); Hematocrit 27.5 % (42.0-52.0); Hemoglobin 8.9 g/dL (14.0-18.0); Immature Granulocyte Absolute 0.05 K/mm3 (0.00-0.031); Immature Granulocyte Percent A 0.5 % (0-0.5); Lymphocytes Absolute Auto 2.15 K/mm3 (0.9-3.2); Lymphocytes Percent Auto 20.1 % (18.3-44.2); Mean Corpuscular HGB Conc 32.4 g/dl (32-36); Mean Corpuscular Hemoglobin 29.1 pg (26-34); Mean Corpuscular Volume 89.9 fl (80-100); Mean Platelet Volume 8.5 fl (7.4-10.4); Monocytes Absolute Auto 0.8 K/mm3 (0.1-0.6); Monocytes Percent Auto 7.6 % (2.6-8.5); Neutrophils Absolute Auto 7.5 K/mm3 (1.3-6.7); Neutrophils Percent Auto 69.8 % (45.5-73.1); Platelet Count Result 727 k/mm3 (150-375); Red Blood Count 3.06 M/mm3 (4.6-6.20); Red Cell Distribution Width 16.2 % (11.5-14.5); White Blood Count 10.7 K/mm3 (4.5-10.0)
[2025-01-17 06:00] VITALS: BP 106/77; PULSE 75; RESP 18; TEMP 36.3; O2SAT 96
[2025-01-17 06:12] LABS: INR 2.1; Prothrombin Time 23.2 Seconds (11.1-14.7)
[2025-01-17 06:15] LABS: Alanine Aminotransferase 21 U/L (6-50); Albumin Level 2.5 g/dL (3.5-5.1); Alkaline Phosphatase 104 U/L (38-126); Anion Gap 3 mmol/L (4-12); Aspartate Amino Transferase 35 U/L (17-59); Bilirubin,Total 0.1 mg/dL (0.2-1.3); Blood Urea Nitrogen 21 mg/dL (9-20); Calcium 8.7 mg/dL (8.4-10.2); Carbon Dioxide 31 mmol/L (22-30); Chloride 104 mmol/L (98-107); Estimated CRCL calculation 64 ml/min; Estimated Glomerular Filt Rate > 60; Glucose 85 mg/dL (65-110); Potassium 4.2 mmol/L (3.4-5.0); Sodium 138 mmol/L (137-145)
[2025-01-17 08:00] VITALS: O2SAT 96
--- NOTE | 2025-01-17 08:06 | P.PNIM_ITS ---
Progress Note: A&P Assessment and Plan (1) Sepsis: Qualifiers: Sepsis acute organ dysfunction status: without acute organ dysfunction Sepsis type: sepsis due to unspecified organism Qualified Code(s): A41.9 - S epsis, unspecified organism Code(s): A41.9 - Sepsis, unspecified organism Status: Acute Assessment and Plan: Meets SIRS criteria: leukocytosis, tachycardia, and tachypnea in the setting of likely pneumonia and or UTI. * lactic acid: 1.5 * Received sepsis fluids in ED * blood cultures drawn on 01/06 - NGTD * UA concerning for infection, culture obtained on 01/06: pseudomonas aeruginosa * CXR: HMD PICC line tip at the cephalad superior vena cava. Opacities in the m edial aspect bilateral lower lung zones which could represent atelectasis or pneumonia. * Chest CT: right lower lobe pneumonia * Repeat abdomen/pelvis CT 01/10/2025 showing pyelonephritis and fecal impaction * See plan for constipation, pneumonia and UTI below * wound culture mixed bacterial gonzalo * Hemodynamically stable - Leukocytosis improving on 01/17 * Cefepime started 01/08/2025. Remains on Flagyl. Azithromycin completed. Added on doxycycline 01/13/2025 for MRSA coverage * L Hip wound culture taken on 01/13/2025 showed growth of P. Aeruginosa * Continue Cefepime and Vancomycin (2) Pneumonia: Qualifiers: Laterality: right Lung location: lower lobe of lung Pneumonia type: due to unspecified organism Qualified Code(s): J18.9 - Pneumonia, unspecified organism Code(s): J18.9 - Pneumonia, unspecified organism Status: Acute Assessment and Plan: CXR: HMD PICC line tip at the cephalad superior vena cava. Opacities in the medial aspect bilateral lower lung zones which could represent atelectasis or pneumonia. Chest CT: right lower lobe pneumonia * started on CAP tx: azithromycin (completed) ceftriaxone and Flagyl on 01/06, Rocephin transitioned to cefepime 01/08 given pseudomonas on UCx * Viral PCR: Flu/COVID/RSV negative * legionella and pneumococcal negative, mycoplasma pending * no supplemental O2 requirement * Monitor vital signs, I&Os, neuro status and patient is a fall risk * Follow WBC, serum electrolytes, temperature curves and cultures * Denies shortness of breath. Continues denies shortness of breath. Lungs remain diminished. * Repeat CXR: right basilar atelectasis versus pneumonia, left basilar atelectatic changes, no change from previous examination. * Continue antibiotics (3) UTI (urinary tract infection): Qualifiers: Hematuria presence: with hematuria Urinary tract infection type: acute cystitis Qualified Code(s): N30.01 - Acute cystitis with hematuria Code(s): N39.0 - Urinary tract infection, site not specified Status: Acute Assessment and Plan: * UA: cloudy appearance with 1+ protein, trace ketones, 3+ blood, positive nitrates, 2+ leukocytes, 51-100 RBC, 21-50 WBC, rare bacteria * Potter catheter in place with dark cloudy urine subsequently the patient's F oley catheter was exchanged in the ER * CT of the abdomen pelvis was obtained which showed possible cystitis versus chronic outlet obstruction. * UC obtained on 01/06, pseudomonas aeruginosa pansensitive * no previous micro to reviewed * started on Rocephin on 01/07, transitioned to cefepime 01/08 * Continue IV antibiotics (4) Pyelonephritis: Code(s): N12 - Tubulo-interstitial nephritis, not specified as acute or chronic Status: Acute Assessment and Plan: * Abdomen/pelvis CT now showing pyelonephritis * Urine culture obtained on 01/06, pseudomonas aeruginosa pansensitive * Started on Rocephin on 01/07, transitioned to cefepime 01/08. Dose increased for ongoing leukocytosis. * Urine output WNL. Denies flank pain. (5) Constipation: Qualifiers: Constipation type: unspecified constipation type Qualified Code(s): K59.00 - Constipation, unspecified Code(s): K59.00 - Constipation, unspecified Status: Acute Assessment and Plan: * Incidental finding of fecal impaction with moderate stool burden on imaging. * Patient underwent digital rectal exam with disimpaction performed by ER provider. There was still stool retained above the level at could be disimpacted. * Abdomen/pelvis CT on admission: moderate retained fecal material throughout the colon with impaction in the rectum * Continue Metamucil BID, and senna BID * Monitor I/O * Abdomen/pelvis CT: readministration of significant fecal stasis distending the rectum and extending retrograde to the level of the splenic flexure, consistent with fecal impaction * Soap suds enema x1. Per RN patient had a large bowel movement following * KUB 01/13/2025 with nonspecific bowel gas pattern with moderate stool at the distal rectum. Repeated enema (6) Supratherapeutic INR: Code(s): R79.1 - Abnormal coagulation profile Status: Acute Assessment and Plan: * Patient on anticoagulation for prior DVT * INR 5.8 on admission, now downtrending at 2.0 on am labs * INR likely elevated given acute sepsis * Holding warfarin 5 mg daily, resume today on 3 mg daily. Monitor INR as patient will likely need to increase back to 5 overtime. * Continue to trend * No signs of active bleeding * Increase Coumadin to 4 mg daily * 01/17: INR 2.1 (7) Pressure ulcer: Qualifiers: Pressure injury location: unspecified location Pressure injury stage: unspecified pressure injury stage Qualified Code(s): L89.90 - Pressure ulcer of unspecified site, unspecified stage Code(s): L89.90 - Pressure ulcer of unspecified site, unspecified stage Status: Acute Assessment and Plan: * According to documentation from skilled nursing patient was admitted to skilled nursing 11/16/2024 from [facility] for sepsis pneumonia sacral ulcers and right upper extremity DVT. 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 * According to the ER note the patient's family was debating hospice versus surgical intervention for the patient's sacral wounds. Wound Care nurses felt that there is no need for further debridement of the patient's wounds in the appear to be in good condition. * Previous culture from sacral decubitus ulcer reviewed from 11/05/2024. Doxycycline is intermediate. Will switch to Bactrim which was susceptible. Also was susceptible to ceftaroline linezolid daptomycin vancomycin and clindamycin * Continue wound care (8) Anemia: Qualifiers: Anemia type: other cause Other causes of anemia: chronic disease, other Qualified Code(s): D63.8 - Anemia in other chronic diseases classified elsewhere Code(s): D64.9 - Anemia, unspecified Status: Acute Assessment and Plan: H/H 8.9/ 27.2 on admission, no signs of active bleeding - H/H remains stable at 8.6/26.4 on am labs - Iron panel: Iron 20, TIBC 119, % sat 17, Ferritin 293 - B12 and folate WNL - Started on iron supplementation - 01/17: Hemoglobin 8.9 (9) BPH (benign prostatic hyperplasia): Qualifiers: Lower urinary tract symptom detail: urinary retention Lower urinary tract symptom presence: symptoms present Qualified Code(s): N40.1 - Benign prostatic hyperplasia with lower urinary tract symptoms; R33.8 - Other retention of urine Code(s): N40.0 - Benign prostatic hyperplasia without lower urinary tract symptoms Status: Acute Assessment and Plan: Chronic, continue Flomax and finasteride Chronic Potter catheter in place, exchanged in the ED. (10) Hypotension due to hypovolemia: Code(s): E86.1 - Hypovolemia Status: Acute Assessment and Plan: Chronic, continue home midodrine 5 mg TID. Patient was mildly hypotensive in the ER likely related to some volume depletion, systolic blood pressures of 92/64. After fluid bolus patient's blood pressures normalized. Blood pressures remain stable at this time. Continue to monitor. (11) Severe protein-calorie malnutrition: Code(s): E43 - Unspecified severe protein-calorie malnutrition Status: Acute Assessment and Plan: Supplement per nutrition. Subjective Date/time seen: 01/17/25 08:06 Interval history: Patient has a history of schizophrenia and bipolar disorder, orthostatic hypotension, chronic constipation and BPH who presented to the ER from [facility] over concern for possible infection of chronic pressure ulcers. 01/17/2025. Patient sitting comfortably in bed at time of exam. Denies any pain or shortness of breath at this time. Continue IV antibiotics, wound care, and mupirocin ointment for nasal mrsa. Otherwise pt is stable. Leukocytosis improving. Tentative discharge tomorrow Review of Systems 2 Review of Systems: Review of systems obtained however unsure how accurate given confusion. During assessment patient denied any complaints. All systems reviewed & are unremarkable except as noted in HPI and below ROS unobtainable: Yes unobtainable due to mental status Exam Narrative: General: male in no acute respiratory distress who is nontoxic appearing, lying semi recumbent in bed. HEENT: Normocephalic. Atraumatic. Extraocular movement intact. Sclera clear and anicteric. No facial asymmetry. Chest: Lungs are diminished to auscultation bilaterally. PICC line in-situ. CV: Heart was regular rate and rhythm. Abd: Abdomen was soft. Nontender, no guarding. Nondistended. Positive bowel sounds. Ext: No clubbing, cyanosis, or edema. DP pulses bilaterally. Left hand edema extending to the wrist. dressing to BLE. heel protector boots on Neuro: Patient is alert and oriented x2 (self, year). Speech is quiet and garbled. Const: Other: Chronically ill-appearing, appears older than stated age, thin body habitus HENMT: Other: Mucous membranes are tacky, teeth are broken off at the gumline the remainder of teeth the constitution party been removed, the teeth after remaining are carried, patient has deviation tongue and facial asymmetry Eyes: Other: Pupils are equal and reactive, extraocular movements intact Neck: Other: No JVD, no lymphadenopathy Resp: Other: Shallow respirations, decreased breath sounds at the bases, no increased work of breathing Cardio: Other: Mildly tachycardic, 2+ bilateral radial and pedal pulses, no JVD, no murmur GI: Other: Soft, nontender, nondistended, positive bowel sounds : Other: Potter catheter in place with cloudy yellow urine Back/Spine/Pelvis: Other: Sacral ulcer with exposed bone and tendon please see wound care photos with clean wound beds consistent with chronic stable wound Skin: Other: Patient has unstageable ulcers bilateral hips with soft material colored yellow to dark ann, right heel with overlying eschar that is firm Neuro: Other: Patient is aware that he is in the hospital and is oriented to his name this is reported the patient's baseline. Patient denies any history of stroke this seems to be an accurate given the patient has contractures of his bilateral lower extremities and is unable to move his left upper extremity and the patient has left facial droop, speech is slurred and difficult to understand Extrem: Other: Patient has pitting edema bilateral lower extremities wounds to the right heel as discussed above under skin exam, James is tight in [place] above her bilateral lower extremities, pressure relieving boots in place, flexion contractures at bilateral knees and hips, PICC line in the left upper arm Psych: Other: Pleasantly confused, cooperative Objective Data Vital Signs Vital Signs: Vital Signs - 24 hr 01/16/25 14:00 01/16/25 22:00 01/17/25 06:00 Temperature 98.8 F 97.6 F 97.4 F L Pulse Rate 116 H 74 75 Respiratory Rate 20 18 18 Blood Pressure 96/65 L 108/80 106/77 Pulse Oximetry 100 98 96 Intake/Output Intake/Output: Intake & Output 01/14/25 01/15/25 01/16/25 01/17/25 23:59 23:59 23:59 23:59 Intake Total 550 280 910 Output Total 1500 1850 1450 1300 Balance -950 -1570 -540 -1300 Meds/Results Medications: Active Medications Generic Name Dose Route Start Last Admin Trade Name Freq PRN Reason Stop Dose Admin Acetaminophen 650 mg 01/06/25 15:33 01/16/25 02:55 Acetaminophen 325 Mg Tablet PO 650 mg Q4H PRN Administration Mild Pain (1-3) or Fever Aripiprazole 10 mg 01/07/25 09:00 01/16/25 08:52 Aripiprazole 10 Mg Tablet PO 10 mg DAILY JIMMY Administration Aspirin 81 mg 01/07/25 09:00 01/16/25 08:51 Aspirin 81 Mg Chewable Tablet PO 81 mg DAILY JIMMY Administration Dextrose 12.5 gm 01/06/25 15:33 Dextrose 50% 25 Gm/50 Ml Syringe IV PUSH PRN PRN Hypoglycemia Protocol Ferrous Sulfate 325 mg 01/07/25 17:00 01/16/25 17:43 Ferrous Sulfate [address] PO 325 mg BID JIMMY Administration Finasteride 5 mg 01/07/25 09:00 01/16/25 08:52 Finasteride 5 Mg Tablet PO 5 mg DAILY JIMMY Administration Glucagon 1 mg 01/06/25 15:33 Glucagon For Inj 1 Mg Vial IM PRN PRN Hypoglycemia Protocol Glucose 15 gm 01/06/25 15:33 Glucose Oral Gel 15 Gm Of Glucse In 37.5 Gm Tube PO PRN PRN Hypoglycemia Protocol Dextrose 1,000 mls @ 100 mls/hr 01/06/25 15:33 Dextrose 5% 1,000 Ml IVPB PRN PRN Hypoglycemia Protocol Cefepime HCl 2 gm in 50 mls @ 100 mls/hr 01/11/25 23:00 01/16/25 21:25 Maxipime 2 Gm/Ns 50 Ml IVPB 100 mls/hr Q12HR JIMMY Administration Vancomycin HCl 1,000 mg in 250 mls @ 250 mls/hr 01/16/25 06:00 01/17/25 05:47 Vancomycin 1,000 Mg/Ns 250 Ml IVPB 250 mls/hr Q12H JIMMY Administration Meloxicam 15 mg 01/07/25 09:00 01/16/25 08:51 Meloxicam 7.5 Mg Tablet PO 15 mg DAILY JIMMY Administration Methimazole 5 mg 01/07/25 09:00 01/16/25 17:43 Methimazole 5 Mg Tab PO 5 mg BID JIMMY Administration Midodrine 5 mg 01/06/25 22:20 01/16/25 17:43 Midodrine Hcl 2.5 Mg Tablet PO 5 mg TID JIMMY Administration Mirtazapine 15 mg 01/06/25 22:20 01/16/25 21:24 Mirtazapine 15 Mg Tablet PO 15 mg HS JIMMY Administration Miscellaneous Information 1 each 01/16/25 00:01 01/16/25 08:51 [place] And Flagyl Needs To Be Renewed Or It Will Automatically Discontinue. XX 02/15/25 00:00 1 each CLARIFY JIMMY Administration Ondansetron HCl 4 mg 01/06/25 15:33 Ondansetron Inj 4 Mg/2 Ml Vial IV PUSH Q4H PRN Nausea Polyethylene Glycol 17 gm 01/11/25 09:00 01/16/25 08:52 Polyethylene Glycol 3350 17 Gm Powd.Pack PO 17 gm QAM JIMMY Administration Senna 8.6 mg 01/07/25 09:00 01/16/25 17:43 Sennosides 8.6 Mg Tablet PO 8.6 mg BID JIMMY Administration Sodium Chloride 10 ml 01/06/25 22:00 01/17/25 05:48 Central Line Flush IV PUSH 10 ml Q8HR JIMMY Administration Sodium Chloride 10 ml 01/06/25 16:42 Central Line Flush IV PUSH PRN PRN with TPN bag changes Sodium Chloride 20 ml 01/06/25 16:42 01/13/25 04:30 Central Line Flush IV PUSH 20 ml PRN PRN Administration after blood draws Tamsulosin HCl 0.4 mg 01/07/25 09:00 01/16/25 08:53 Tamsulosin Hcl 0.4 Mg Capsule PO 0.4 mg DAILY JIMMY Administration Trihexyphenidyl HCl 2 mg 01/06/25 22:25 01/16/25 17:43 Trihexyphenidyl Hcl 2 Mg Tablet PO 2 mg BID JIMMY Administration Vitamin B Complex/Folic Acid 1 cap 01/07/25 09:00 01/16/25 08:51 Vitamin B Cmplx/Vit C/Folic Ac 1 Capsule PO 1 cap DAILY JIMMY Administration Warfarin Sodium 4 mg 01/14/25 17:00 01/16/25 17:43 Warfarin (*Pbkc) 4 Mg Tablet PO 4 mg DAILY@1700 JIMMY Administration Radiology Results: ITS Impressions Venous Doppler Study 01/08/25 17:36 IMPRESSION: Partial compression of the cephalic vein which may indicate thrombosis. Axillary vein is not evaluated. Other veins are unremarkable. Abdomen/Pelvis CT 01/10/25 17:56 IMPRESSION: Findings suggesting pyelonephritis, as detailed above. Redemonstration of significant fecal stasis distending the rectum and extending retrograde to the level of the splenic flexure, consistent with fecal impaction. Chest X-Ray 01/12/25 11:48 IMPRESSION: Right basilar atelectasis versus pneumonia. Left basilar atelectatic changes. No change from previous examination. Abdomen X-Ray 01/13/25 06:08 Impression: Nonspecific bowel gas pattern. Moderate stool at the distal rectum. Advanced degenerative change of both hip joints. Labs Labs: Laboratory Results - last 24 hr 01/16/25 01/16/25 01/17/25 04:58 09:17 05:42 WBC 12.3 H 10.7 H RBC 3.01 L 3.06 L Hgb 8.7 L 8.9 L Hct 26.7 L 27.5 L MCV 88.7 89.9 MCH 28.9 29.1 MCHC 32.6 32.4 RDW 16.0 H 16.2 H Plt Count 713 H 727 H MPV 8.7 8.5 Immature Gran % (Auto) 0.5 0.5 Neut % (Auto) 72.9 69.8 Lymph % (Auto) 17.1 L 20.1 Hayes % (Auto) 7.9 7.6 Eos % (Auto) 1.1 1.5 Baso % (Auto) 0.5 0.5 Lymph # (Auto) 2.10 2.15 Hayes # (Auto) 1.0 H 0.8 H Eos # (Auto) 0.1 0.2 Baso # (Auto) 0.1 0.1 Abs Immat Gran (auto) 0.06 H 0.05 H Absolute Neuts (auto) 9.0 H 7.5 H Absolute Nucleated RBC 0.000 0.000 Nucleated RBC % 0.0 0.0 PT 23.2 H INR 2.1 Sodium 138 138 Potassium 4.4 4.2 Chloride 105 104 Carbon Dioxide 29 31 H Anion Gap 4 3 L BUN 23 H 21 H Creatinine 0.72 0.76 Estim Creat Clear Calc 67 64 Estimated GFR > 60 > 60 Glucose 79 85 Calcium 8.5 8.7 Total Bilirubin 0.2 0.1 L AST 39 35 ALT 20 21 Alkaline Phosphatase 105 104 Total Protein 5.8 L 6.0 L Albumin 2.4 L 2.5 L Quality VTE Prophylaxis VTE prophylaxis: pharmacologic ordered
[2025-01-17] MEDS: MIDODRINE HCL 2.5 MG TABLET 5 MG PO ×3 (08:50→16:28)
[2025-01-17] MEDS: VITAMIN B CMPLX/VIT C/FOLIC AC 1 CAPSULE 1 CAP PO (08:50)
[2025-01-17] MEDS: SENNOSIDES 8.6 MG TABLET PO ×2 (08:50→16:28)
[2025-01-17] MEDS: FINASTERIDE 5 MG TABLET PO (08:50)
[2025-01-17] MEDS: methiMAzole 5 MG TAB PO ×2 (08:51→16:28)
[2025-01-17] MEDS: ARIPiprazole 10 MG TABLET PO (08:51)
[2025-01-17] MEDS: TAMSULOSIN HCL 0.4 MG CAPSULE PO (08:51)
[2025-01-17] MEDS: ASPIRIN 81 MG CHEWABLE TABLET PO (08:51)
[2025-01-17] MEDS: MELOXICAM 7.5 MG TABLET 15 MG PO (08:52)
[2025-01-17] MEDS: FERROUS SULFATE 325 MG TABLET DR PO ×2 (08:52→16:27)
[2025-01-17] MEDS: CEFEPIME 2 GM/NS 50 ML 2 GM/50 ML BAG IVPB ×2 (08:52→20:45)
[2025-01-17] MEDS: TRIHEXYPHENIDYL HCL 2 MG TABLET PO ×2 (08:52→16:28)
[2025-01-17] MEDS: polyethylene glycoL 3350 17 GM POWD.PACK PO (08:53)
[2025-01-17 14:00] VITALS: BP 137/84; PULSE 91; RESP 18; TEMP 36.4; O2SAT 100
[2025-01-17] MEDS: WARFARIN (*PBKC) 4 MG TABLET PO (16:27)
[2025-01-17 17:22] LABS: Vancomycin Trough 21.3 ug/mL (10.0-20.0)
[2025-01-17] MEDS: VANCOMYCIN 750 MG/NS 250 ML 750 MG/250 ML BAG 250 MG IVPB (20:45)
[2025-01-17] MEDS: MIRTAZAPINE 15 MG TABLET PO (20:45)
[2025-01-17 22:00] VITALS: BP 114/71; PULSE 64; RESP 18; TEMP 36.3; O2SAT 100
[2025-01-18 05:24] LABS: Basophils Absolute Auto 0.1 K/mm3 (0.0-0.1); Basophils Percent Auto 0.7 % (0.2-1.2); Eosinophils Absolute Auto 0.2 K/mm3 (0-0.3); Eosinophils Percent Auto 1.8 % (0-4.4); Hemoglobin 8.6 g/dL (14.0-18.0); Immature Granulocyte Absolute 0.05 K/mm3 (0.00-0.031); Immature Granulocyte Percent A 0.5 % (0-0.5); Lymphocytes Absolute Auto 1.59 K/mm3 (0.9-3.2); Lymphocytes Percent Auto 17.3 % (18.3-44.2); Mean Corpuscular HGB Conc 31.9 g/dl (32-36); Mean Corpuscular Hemoglobin 28.6 pg (26-34); Mean Corpuscular Volume 89.7 fl (80-100); Mean Platelet Volume 8.7 fl (7.4-10.4); Monocytes Absolute Auto 0.7 K/mm3 (0.1-0.6); Monocytes Percent Auto 7.4 % (2.6-8.5); Neutrophils Absolute Auto 6.7 K/mm3 (1.3-6.7); Neutrophils Percent Auto 72.3 % (45.5-73.1); Platelet Count Result 713 k/mm3 (150-375); Red Blood Count 3.01 M/mm3 (4.6-6.20); White Blood Count 9.2 K/mm3 (4.5-10.0)
[2025-01-18 05:37] LABS: INR 2.2
[2025-01-18 05:52] LABS: Alanine Aminotransferase 21 U/L (6-50); Albumin Level 2.3 g/dL (3.5-5.1); Alkaline Phosphatase 97 U/L (38-126); Anion Gap 1 mmol/L (4-12); Aspartate Amino Transferase 40 U/L (17-59); Bilirubin,Total < 0.1 mg/dL (0.2-1.3); Blood Urea Nitrogen 22 mg/dL (9-20); Calcium 8.6 mg/dL (8.4-10.2); Carbon Dioxide 31 mmol/L (22-30); Chloride 106 mmol/L (98-107); Estimated CRCL calculation 69 ml/min; Estimated Glomerular Filt Rate > 60; Glucose 82 mg/dL (65-110); Potassium 4.2 mmol/L (3.4-5.0); Sodium 138 mmol/L (137-145); Total Protein 5.8 g/dL (6.3-8.2)
[2025-01-18 05:53] VITALS: BP 116/67; PULSE 66; RESP 18; TEMP 36.6; O2SAT 99
[2025-01-18 08:00] VITALS: O2SAT 96
[2025-01-18] MEDS: levoFLOXacin 750 MG TABLET PO (09:28)
[2025-01-18] MEDS: SULFAMETHOXAZOLE/TRIMETHOPRIM 800/160 MG DS TABLET 1 TAB PO (09:28)
[2025-01-18] MEDS: TAMSULOSIN HCL 0.4 MG CAPSULE PO (09:29)
[2025-01-18] MEDS: FERROUS SULFATE 325 MG TABLET DR PO (09:29)
[2025-01-18] MEDS: MIDODRINE HCL 2.5 MG TABLET 5 MG PO ×2 (09:29→13:30)
[2025-01-18] MEDS: VITAMIN B CMPLX/VIT C/FOLIC AC 1 CAPSULE 1 CAP PO (09:29)
[2025-01-18] MEDS: MELOXICAM 7.5 MG TABLET 15 MG PO (09:29)
[2025-01-18] MEDS: SENNOSIDES 8.6 MG TABLET PO (09:29)
[2025-01-18] MEDS: TRIHEXYPHENIDYL HCL 2 MG TABLET PO (09:29)
[2025-01-18] MEDS: methiMAzole 5 MG TAB PO (09:29)
[2025-01-18] MEDS: ASPIRIN 81 MG CHEWABLE TABLET PO (09:29)
[2025-01-18] MEDS: FINASTERIDE 5 MG TABLET PO (09:30)
[2025-01-18] MEDS: ARIPiprazole 10 MG TABLET PO (09:30)
[2025-01-18] MEDS: polyethylene glycoL 3350 17 GM POWD.PACK PO (09:30)
--- NOTE | 2025-01-18 11:40 | PM.DS ---
DS: Admitting Diagnosis Discharge Date 01/18/2025 Admitting Diagnosis Sepsis, UTI, Pneumonia, pressure ulcer DS: Discharge Diagnosis Discharge Diagnosis (1) Sepsis: Qualifiers: Sepsis acute organ dysfunction status: without acute organ dysfunction Sepsis type: sepsis due to unspecified organism Qualified Code(s): A41.9 - Sepsis, unspecified organism Code(s): A41.9 - Sepsis, unspecified organism Status: Acute (2) Pneumonia: Qualifiers: Laterality: right Lung location: lower lobe of lung Pneumonia type: due to unspecified organism Qualified Code(s): J18.9 - Pneumonia, unspecified organism Code(s): J18.9 - Pneumonia, unspecified organism Status: Acute (3) UTI (urinary tract infection): Qualifiers: Hematuria presence: with hematuria Urinary tract infection type: acute cystitis Qualified Code(s): N30.01 - Acute cystitis with hematuria Code(s): N39.0 - Urinary tract infection, site not specified Status: Acute (4) Pyelonephritis: Code(s): N12 - Tubulo-interstitial nephritis, not specified as acute or chronic Status: Acute (5) Constipation: Qualifiers: Constipation type: unspecified constipation type Qualified Code(s): K59.00 - Constipation, unspecified Code(s): K59.00 - Constipation, unspecified Status: Acute (6) Supratherapeutic INR: Code(s): R79.1 - Abnormal coagulation profile Status: Acute (7) Pressure ulcer: Qualifiers: Pressure injury location: unspecified location Pressure injury stage: unspecified pressure injury stage Qualified Code(s): L89.90 - Pressure ulcer of unspecified site, unspecified stage Code(s): L89.90 - Pressure ulcer of unspecified site, unspecified stage Status: Acute (8) Anemia: Qualifiers: Anemia type: other cause Other causes of anemia: chronic disease, other Qualified Code(s): D63.8 - Anemia in other chronic diseases classified elsewhere Code(s): D64.9 - Anemia, unspecified Status: Acute (9) BPH (benign prostatic hyperplasia): Qualifiers: Lower urinary tract symptom detail: urinary retention Lower urinary tract symptom presence: symptoms present Qualified Code(s): N40.1 - Benign prostatic hyperplasia with lower urinary tract symptoms; R33.8 - Other retention of urine Code(s): N40.0 - Benign prostatic hyperplasia without lower urinary tract symptoms Status: Acute (10) Hypotension due to hypovolemia: Code(s): E86.1 - Hypovolemia Status: Acute (11) Severe protein-calorie malnutrition: Code(s): E43 - Unspecified severe protein-calorie malnutrition Status: Acute DS: Summary Hospital Course Reason for hospitalization: Evaluation of bedsores Hospital Course: Patient has a history of schizophrenia and bipolar disorder, orthostatic hypotension, chronic constipation and BPH who presented to the ER from [facility] over concern for possible infection of chronic pressure ulcers. According to the ER physician note patient is chronically bed-bound baseline with flexion contractures of bilateral lower extremities. [facility] to documentation [facility]. He was treated there for sepsis pneumonia sacral ulcers and right upper extremity DVT. He completed a course of daptomycin through left upper extremity PICC line for possible osteomyelitis of the sacrum on 12/17/2024. According to the ER note the patient's family was debating hospice versus surgical intervention for the patient's sacral wounds. Wound Care nurses felt that there is no need for further debridement of the patient's wounds in the appear to be in good condition. Patient arrived to the hospital with a Potter catheter in place with dark cloudy urine subsequently the patient's Potter catheter was exchanged in the ER and UA was obtained which demonstrated nitrates and esterase but rare bacteria. CT of the abdomen pelvis was obtained which showed possible cystitis versus chronic outlet obstruction. No kidney stones were noted. Incidental finding of a right lower lobe pneumonia and fecal impaction with moderate stool burden. Patient underwent digital rectal exam with disimpaction performed by ER provider. There was still stool retained above the level at could be disimpacted. Labs demonstrated leukocytosis with white count of 26.2 with a neutrophil predominance but no bandemia. Hemoglobin was 9.8 with no prior records available for comparison. Patient was felt to be volume depleted in the ER and received fluid bolus. Patient was mildly hypotensive in the ER was systolic blood pressures of 92/64. After fluid bolus patient's blood pressures normalized. Patient was having intermittent tachycardia with heart rates in the 110s and intermittent tachypnea with respiratory rate between 16 and 24. Patient was not requiring oxygen. The patient at time a my evaluation only complains of left arm pain. He complains that he wants to be covered backup and requests multiple drinks of Pepsi. I assisted the patient in drinking soda that was at his bedside. He was unable to provide any other meaningful information for his review of systems. Subsequently details were obtained from ER physician report, [facility] records and external medication database. Patient was admitted for sepsis which is likely caused by underlying pneumonia, UTI. Complicated by pyelonephritis. These were treated with IV antibiotics, patient initially started on azithromycin ceftriaxone and Flagyl, Rocephin was transitioned eventually to cefepime on 01/08 he. He was also admitted for constipation, disimpaction was performed by ER provider and patient was placed on Metamucil b.i.d. and senna b.i.d.. Constipation result over hospitalization. Patient was also admitted for multiple pressure ulcers that were originally documented on 11/16/2024. Wound Care was consulted and agreed with debridement not be necessary at this time and that the wounds appear to be in good condition. Patient also has underlying anemia, but this has been stable, patient was started on iron supplementation. Left hip wound culture was taken on 01/13 which showed continued growth of Pseudomonas aeruginosa. Doxycycline was eventually added for MRSA coverage, along with cefepime Flagyl and azithromycin. Azithromycin completed and eventually patient was transitioned to oral antibiotics. On 01/18, patient's leukocytosis has resolved and patient remains afebrile on exam. He will likely benefit from continued antibiotic coverage. I spoke with ID pharmacist regarding options for discharge coverage, and he agreed with Bactrim and Levaquin for underlying pneumonia/UTI. Patient otherwise hemodynamically stable for discharge and no longer requires hospitalization at this time. Patient is at his baseline mentation status and can be discharged to long-term care facility at this time. Status at Discharge Functional status at discharge: bed bound Overall status at discharge: patient is back to baseline Time Spent with Patient Time attestation: Total time spent providing and/or coordinating discharge services: 41 Exam Narrative: General: male in no acute respiratory distress who is nontoxic appearing, lying semi recumbent in bed. HEENT: Normocephalic. Atraumatic. Extraocular movement intact. Sclera clear and anicteric. No facial asymmetry. Chest: Lungs are diminished to auscultation bilaterally. PICC line in-situ. CV: Heart was regular rate and rhythm. Abd: Abdomen was soft. Nontender, no guarding. Nondistended. Positive bowel sounds. Ext: No clubbing, cyanosis, or edema. DP pulses bilaterally. Left hand edema extending to the wrist. dressing to BLE. heel protector boots on Neuro: Patient is alert and oriented x2 (self, year). Speech is quiet and garbled. Const: Other: Chronically ill-appearing, appears older than stated age, thin body habitus HENMT: Other: Mucous membranes are tacky, teeth are broken off at the gumline the remainder of teeth the constitution party been removed, the teeth after remaining are carried, patient has deviation tongue and facial asymmetry Eyes: Other: Pupils are equal and reactive, extraocular movements intact Neck: Other: No JVD, no lymphadenopathy Resp: Other: Shallow respirations, decreased breath sounds at the bases, no increased work of breathing Cardio: Other: Mildly tachycardic, 2+ bilateral radial and pedal pulses, no JVD, no murmur GI: Other: Soft, nontender, nondistended, positive bowel sounds : Other: Potter catheter in place with cloudy yellow urine Back/Spine/Pelvis: Other: Sacral ulcer with exposed bone and tendon please see wound care photos with clean wound beds consistent with chronic stable wound Skin: Other: Patient has unstageable ulcers bilateral hips with soft material colored yellow to dark ann, right heel with overlying eschar that is firm Neuro: Other: Patient is aware that he is in the hospital and is oriented to his name this is reported the patient's baseline. Patient denies any history of stroke this seems to be an accurate given the patient has contractures of his bilateral lower extremities and is unable to move his left upper extremity and the patient has left facial droop, speech is slurred and difficult to understand Extrem: Other: Patient has pitting edema bilateral lower extremities wounds to the right heel as discussed above under skin exam, James is tight in [place] above her bilateral lower extremities, pressure relieving boots in place, flexion contractures at bilateral knees and hips, PICC line in the left upper arm Psych: Other: Pleasantly confused, cooperative DS: Data Data Completed and Pending Labs on day of discharge: Labs from last 24 hours 01/18/25 01/17/25 05:16 16:42 WBC 9.2 RBC 3.01 L Hgb 8.6 L Hct 27.0 L MCV 89.7 MCH 28.6 MCHC 31.9 L RDW 16.0 H Plt Count 713 H MPV 8.7 Immature Gran % (Auto) 0.5 Neut % (Auto) 72.3 Lymph % (Auto) 17.3 L [place] % (Auto) 7.4 Eos % (Auto) 1.8 Baso % (Auto) 0.7 Lymph # (Auto) 1.59 [place] # (Auto) 0.7 H Eos # (Auto) 0.2 Baso # (Auto) 0.1 Abs Immat Gran (auto) 0.05 H Absolute Neuts (auto) 6.7 Absolute Nucleated RBC 0.000 Nucleated RBC % 0.0 PT 24.0 H INR 2.2 Sodium 138 Potassium 4.2 Chloride 106 Carbon Dioxide 31 H Anion Gap 1 L BUN 22 H Creatinine 0.70 Estim Creat Clear Calc 69 Estimated GFR > 60 Glucose 82 Calcium 8.6 Total Bilirubin < 0.1 L AST 40 ALT 21 Alkaline Phosphatase 97 Total Protein 5.8 L Albumin 2.3 L Vancomycin Trough 21.3 H Preliminary micro results at discharge 01/13/25 13:58 Anaerobic Culture - Preliminary Hip Left Discharge Plan Discharge Attending physician on discharge: Shahzad Odell Consulting providers: Peng Jimenes Discharging Clinician: Peng Jimenes Anticipated Discharge Date/Time: 01/18/25 11:33 Patient Disposition: [facility] Senior Care/Asst Living Activity: as tolerated Diet: as tolerated Discharge Instructions: Discharge disposition: Stable Take medications as prescribed. You will be prescribed trimethoprim/sulfamethoxazole for 18 total doses to be taken twice daily, and Levaquin for a total of 9 doses to be taken once daily. Monitor blood pressures Take caution while standing, rising, or moving Change positions slowly taking a break between each position change If you standing feel dizzy sit back down and take a break Encouraged to continue with yearly vaccinations Return to the emergency department if he developed sudden shortness of breath, chest pain, nausea, vomiting, upset stomach or intractable diarrhea Return to the emergency department if you develop fever greater than 101.5 Follow-up with the primary care physician within 1-2 weeks Thank you for [facility] for your healthcare needs Patient Instructions: Antibiotic Form Patient Language: [place] Stand Alone Forms: General Discharge Information Follow-up/Referrals: UNKNOWN,DOCTOR [Primary Care Provider] - Discharge Medications: New sulfamethoxazole-trimethoprim [Bactrim DS] 800-160 mg tablet 1 tablet PO Q12H Qty: 18 0RF levofloxacin 750 mg tablet 750 mg PO DAILY Qty: 9 0RF Continued hydrocodone-acetaminophen 5-325 mg tablet 1 tablet PO BID meloxicam 15 mg tablet 15 mg PO DAILY midodrine 5 mg tablet 5 mg PO TID metronidazole 500 mg tablet 500 mg PO TID methimazole 5 mg tablet 5 mg PO BID trihexyphenidyl 2 mg tablet 2 mg PO BID finasteride 5 mg tablet 5 mg PO DAILY acetaminophen 500 mg tablet 1,000 mg PO Q6H PRN (Reason: fever or pain) aripiprazole 10 mg tablet 10 mg PO DAILY ascorbic acid (vitamin C) [Acerola C] 500 mg tablet,chewable 500 mg PO DAILY aspirin 81 mg tablet,chewable 81 mg PO DAILY Daily Fiber (psyllium-aspart) 3.4 gram powder in packet 2 packet PO BID tamsulosin 0.4 mg capsule 0.4 mg PO DAILY polyethylene glycol 3350 [Miralax] 17 gram/dose powder 17 g PO DAILY Mynephrocaps 1 mg capsule 1 cap PO DAILY Pro-Stat Sugar Free 15-100 gram-kcal/30 mL liquid 1 ea PO QID mirtazapine [Remeron] 15 mg tablet 15 mg PO HS senna 8.6 mg capsule 8.6 mg PO BID warfarin 5 mg tablet 5 mg PO DAILY zinc gluconate 50 mg tablet 50 mg PO DAILY Date of admission: 01/07/25 09:42 Primary Care Provider: UNKNOWN,DOCTOR Admitting Provider: Claus Shi Attending physician on admission: Janneth Parks Condition: Stable Quality VTE Prophylaxis VTE prophylaxis: pharmacologic ordered
[2025-01-18] MEDS: CENTRAL LINE FLUSH 10 ML IV PUSH (13:30)
[2025-01-18 13:41] VITALS: BP 135/89; PULSE 73; RESP 16; TEMP 35.8; O2SAT 96
[2025-01-18] MEDS: NEOMYCIN/POLYMYXIN/BACITRACIN OINTMENT PACKET 1 PACKET (15:25)
== END 2025-01-18 16:28 | DRG 720 ==
LOC: ANHED 15:10 → ANH3MEDSUR 15:57
PROVIDERS: Internal Medicine; Student in an Organized Health Care Education/Training Program; Admitting Provider Internal Medicine; Emergency Provider Physician Assistant; Visit Provider Physician Assistant
DX: A41.9 Sepsis, unspecified organism (principal); F20.9 Schizophrenia, unspecified; F31.9 Bipolar disorder, unspecified; I95.1 Orthostatic hypotension; Z74.01 Bed confinement status; J18.9 Pneumonia, unspecified organism; K56.41 Fecal impaction; E43 Unspecified severe protein-calorie malnutrition; Z86.718 Personal history of other venous thrombosis and embolism; I12.9 Hypertensive chronic kidney disease with stage 1 through stage 4 chronic kidney disease, or unspecified chronic kidney disease; N18.2 Chronic kidney disease, stage 2 (mild); Z79.01 Long term (current) use of anticoagulants; Z79.82 Long term (current) use of aspirin; Z68.20 Body mass index [BMI] 20.0-20.9, adult; E88.09 Other disorders of plasma-protein metabolism, not elsewhere classified; D63.1 Anemia in chronic kidney disease; R79.1 Abnormal coagulation profile; Z96.0 Presence of urogenital implants; N30.00 Acute cystitis without hematuria; B96.5 Pseudomonas (aeruginosa) (mallei) (pseudomallei) as the cause of diseases classified elsewhere; R33.8 Other retention of urine; N40.1 Benign prostatic hyperplasia with lower urinary tract symptoms; E86.1 Hypovolemia; I82.612 Acute embolism and thrombosis of superficial veins of left upper extremity; N12 Tubulo-interstitial nephritis, not specified as acute or chronic; L89.619 Pressure ulcer of right heel, unspecified stage; L89.220 Pressure ulcer of left hip, unstageable; L89.210 Pressure ulcer of right hip, unstageable; L89.154 Pressure ulcer of sacral region, stage 4
CPT/HCPCS: 36415; 71045; 74018; 74176; 74177; 80048; 80053; 80202; 81001; 82565; 82607; 82728; 82746; 82948; 83540; 83550; 83605; 83735; 84145; 84439; 84443; 84480; 85025; 85027; 85046; 85610; 85730; 86140; 86738; 87040; 87070; 87075; 87086; 87186; 87205; 87449; 87637; 87641; 87899; 92610; 93005; 93970; 93971; 96361; 96365; 96367; 96375; 99285; A9270; G0378; G0379; J0456; J0692; J0696; J3370; J7030; J7040; P9047; Q9967

== ENCOUNTER 2025-02-01 09:31 | Emergency (ER) | payer OTHER, SELFPAY ==
--- NOTE | ~2025-02-01 | XR_ITS ---
XR abdomen gastric tube insert INDICATION: Evaluate NG tube position. TECHNIQUE: Limited KUB perform for evaluating NG tube . COMPARISON: No prior studies for comparison. FINDINGS: NG tube tip in the stomach. Visualized bowel gas pattern is unremarkable. IMPRESSION: 1: NG tube tip in the stomach. Reviewed, dictated and finalized at location A.
--- NOTE | ~2025-02-01 | XR_ITS ---
XR chest ET placement 02/01/2025 09:53 Indication: Shortness of breath. Endotracheal tube placement. Procedure: AP portable chest Comparison: 01/12/2025 Findings: There is bibasilar atelectasis/scarring. The lungs are hyperinflated which is consistent wi th, but not diagnostic of chronic obstructive pulmonary disease. Mildly elevated left diaphragm. Ther e is focal consolidation in the left lower lobe which appears new, suspicious for pneumonia. NG tube in the stomach. Endotracheal tube tip 3.7 cm above the jaziel. Impression: 1: Left lower lobe airspace disease, compatible with pneumonia. Reviewed, dictated and finalized at location A. Impression: 1: Left lower lobe airspace disease, compatible with pneumonia.
--- NOTE | ~2025-02-01 | CT_ITS ---
EXAMINATION: CT brain wo con DATE: 02/01/2025 10:09 INDICATION: Altered mental status TECHNIQUE: Computed tomography (CT) of the head was performed without intravenous contrast. Sagittal and coronal reconstructions were performed. The mA was adjusted according to patient size. Iterative reconstruction technique was employed. The dose-length product was 681.00 mGy-cm. COMPARISON: None FINDINGS: There is a small intraparenchymal hematoma in the left parietal lobe measuring 12 x 12 x 12 mm with s mall amount of surrounding vasogenic edema. There is a large left subdural hematoma overlying the ent song left cerebral hemisphere focally measuring up to 2.5 cm in maximal thickness overlying the left p arietal lobe and significantly tender over the remainder of the cerebral hemisphere. This also extend s along the left side of the falx and tentorium. This results in significant subfalcine herniation wi th up to 2 cm left to right midline shift. There is also left uncal herniation. Finally there is intr aparenchymal extension of the hemorrhage with clot seen within the left lateral ventricle as well as the third ventricle. There is mass effect upon and partial effacement of the left lateral and third v entricles. The right lateral ventricle appears mildly enlarged with convex margins raising concern fo r entrapment. There is also effacement of the majority of the sulci and at the posteromedial hemisphe res also likely secondary to mass effect from the hemorrhage. Galloway-white matter differentiation remai ns preserved with no definitive large territorial infarction. No solid masses identified. The orbits, paranasal sinuses and right mastoid air cells are normal. Left mastoid is hyperpneumatized with mode rate-sized left otomastoiditis effusion. Orogastric tube is seen within the oral cavity. IMPRESSION: 1. Small left parietal lobe intraparenchymal hemorrhage with likely secondary large left subdural hem atoma as well as interval ventricular hemorrhage within the left lateral and third ventricles. This r esults in subfalcine and uncal herniation with up to 2 cm [id number] midline shift. Dr. Gia frey iscussed these findings with Dr. Vance at 10:08 AM. Recommend emergent neurosurgical consultation. 2. Mild enlargement of the right lateral ventricle disproportionate effacement of the sulci and with convex margins suggesting possible entrapment with secondary hydrocephalus. Reviewed, dictated and finalized at location A. IMPRESSION: 1. Small left parietal lobe intraparenchymal hemorrhage with likely secondary l arge left subdural hematoma as well as interval ventricular hemorrhage within t he left lateral and third ventricles. This results in subfalcine and uncal mundo iation with up to 2 cm [id number] midline shift. Dr. Nielsen discussed thes e findings with Dr. Vance at 10:08 AM. Recommend emergent neurosurgical cons ultation. 2. Mild enlargement of the right lateral ventricle disproportionate effacement of the sulci and with convex margins suggesting possible entrapment with second raulito hydrocephalus.
[2025-02-01 09:30] VITALS: PULSE 53; O2SAT 100
--- NOTE | 2025-02-01 09:31 | PC.NURSE ---
0931 PT TO ROOM [address] TOVAR AND RT AT BEDSIDE. PREPARING TO INTUBATE. 0932 LA AT HEAD OF BED SETTING UP FOR INTUBATION. CONTINUING TO BAG 100% SATS 0933 20MG ETOMIDATE GIVEN 0934 100MG SUCCINYLCHOLINE GIVEN 0935 LA AND PHYSICIAN OFFICE NURSE STUDENT INTUBATING WITH A 7.5ETT WITH GLIDESCOPE 1ST ATTEMPT EQUAL BREATH SOUNDS,+COLOR CHANGE 25@LIP 0937 2ND 18G ESTABLISHED R FOREARM LABS OBTAINED. 0940 OG PLACED 65@LIP +AIR BOLUS NOTED
--- NOTE | 2025-02-01 09:46 | ECG_ITS ---
Test Date: 2025-02-01 09:36:34 Measurements Intervals [place] Rate: 77 P: 86 [place]: 156 QRS: 20 QRSD: 110 T: 76 QT: 463 QTc: 526 Interpretive Statements SINUS RHYTHM NONSPECIFIC ST ELEVATION [0.05+ mV ST ELEVATION] PROLONGED QT INTERVAL Compared to ECG 01/06/2025 22:00:34 ST (T wave) deviation now present Prolonged QT interval now present Left-axis deviation no longer present Electronically Signed On 02-01-2025 22:19:36 CDT by Malena Goodman M.D.
[2025-02-01 09:49] VITALS: BP 95/60; PULSE 58; RESP 16; O2SAT 100
[2025-02-01 09:52] LABS: Hematocrit 22.9 % (42.0-52.0); Hemoglobin 7.4 g/dL (14.0-18.0); Immature Granulocyte Percent A 0.4 % (0-0.5); Lymphocytes Absolute Auto 1.23 K/mm3 (0.9-3.2); Mean Corpuscular HGB Conc 32.3 g/dl (32-36); Mean Corpuscular Hemoglobin 28.5 pg (26-34); Mean Corpuscular Volume 88.1 fl (80-100); Nucleated Red Blood Cells Absolute Auto 0.000 K/mm3 (0.0-0.012); Nucleated Red Blood Cells Perc 0.0 % (0.0-0.2); Platelet Count Result 264 k/mm3 (150-375); Red Blood Count 2.60 M/mm3 (4.6-6.20); White Blood Count 7.2 K/mm3 (4.5-10.0)
--- NOTE | 2025-02-01 09:58 | ED.GENADULT ---
HPI - General Adult General Chief complaint: Altered Mental Status Stated complaint: ams History of Present Illness HPI narrative: 69-year-old male presents to the emergency department for evaluation for altered mental status. Patient is currently being treated for pneumonia as outpatient and was doing well approximately 1 hour prior to arrival. 30 minutes prior to arrival patient was found in his room and patient was unresponsive. Patient was having snoring respirations. Upon arrival to the emergency department patient is a full code and was not protecting his airway. Patient was intubated shortly upon arrival emergency department. EKG by EMS did show some ST elevations. Repeat EKG in the emergency department showed concave shape ST elevations with no reciprocal depression. This was shared with Cardiology and they are not taking the patient to the tag and label cutter. Related Data Home Medications ?Medication ?Instructions ?Recorded ?Confirmed ?Last Taken ?Type acetaminophen 500 mg tablet 1,000 mg PO Q6H PRN fever or pain 01/06/25 01/06/25 01/01/25 History amino acids-protein hydrolysate 15 1 ea PO QID 01/06/25 01/06/25 01/06/25 History gram-100 kcal/30 mL oral liquid (Pro-Stat Sugar Free) aripiprazole 10 mg tablet 10 mg PO DAILY 01/06/25 01/06/25 01/06/25 History ascorbic acid (vitamin C) 500 mg 500 mg PO DAILY 01/06/25 01/06/25 01/06/25 History chewable tablet (Acerola C) aspirin 81 mg chewable tablet 81 mg PO DAILY 01/06/25 01/06/25 01/06/25 History finasteride 5 mg tablet 5 mg PO DAILY 01/06/25 01/06/25 01/06/25 History hydrocodone 5 mg-acetaminophen 325 1 tablet PO BID 01/06/25 01/06/25 01/06/25 History mg tablet meloxicam 15 mg tablet 15 mg PO DAILY 01/06/25 01/06/25 01/06/25 History methimazole 5 mg tablet 5 mg PO BID 01/06/25 01/06/25 01/06/25 History metronidazole 500 mg tablet 500 mg PO TID 01/06/25 01/06/25 01/06/25 History midodrine 5 mg tablet 5 mg PO TID 01/06/25 01/06/25 01/06/25 History mirtazapine 15 mg tablet (Remeron) 15 mg PO HS 01/06/25 01/06/25 01/05/25 History polyethylene glycol 3350 17 17 g PO DAILY 01/06/25 01/06/25 01/06/25 History gram/dose oral powder (Miralax) psyllium husk 3.4 gram oral powder 2 packet PO BID 01/06/25 01/06/25 01/06/25 History packet (Daily Fiber (psyllium-aspartame)) sennosides 8.6 mg capsule (senna) 8.6 mg PO BID 01/06/25 01/06/25 01/06/25 History tamsulosin 0.4 mg capsule 0.4 mg PO DAILY 01/06/25 01/06/25 01/06/25 History trihexyphenidyl 2 mg tablet 2 mg PO BID 01/06/25 01/06/25 01/06/25 History vitamin B complex and vitamin C 1 cap PO DAILY 01/06/25 01/06/25 01/06/25 History no.20-folic acid 1 mg capsule (Mynephrocaps) warfarin 5 mg tablet 5 mg PO DAILY 01/06/25 01/06/25 01/06/25 History zinc gluconate 50 mg tablet 50 mg PO DAILY 01/06/25 01/06/25 01/06/25 History Allergies Allergy/AdvReac Type Severity Reaction Status Date / Time No Known Allergies Allergy Verified 01/17/25 14:21 Review of Systems Review of Systems: ROS unobtainable: Yes unobtainable due to mental status PMFSH Past Medical History Medical History (Updated 02/03/25 @ 12:47 by Riley Vance MD) Severe protein-calorie malnutrition Deep vein thrombosis, upper right extremity Chronic indwelling Potter catheter Due to pressure ulcer and BPH Schizophrenia Bipolar disorder Essential hypertension Chronic kidney disease, stage 2 (mild) Chronic constipation BPH (benign prostatic hyperplasia) Orthostatic hypotension Chronic anticoagulation Surgical History Surgical History (Updated 01/07/25 @ 03:54 by Cyndee Stoll DO) History of incision and drainage Debridement of multiple pressure wounds Social History Social History Spiritual care concerns: No Exam Narrative: APPEARANCE: Cachectic and Ill-appearing, unresponsive HEAD: normocephalic, atraumatic. EYES: For the reactive but not fixed and dilated NOSE: Normal no drainage THROAT: Pharynx clear, no exudate. NECK: Supple. No adenopathy, no masses. RESPIRATORY: Sonorous respirations CARDIOVASCULAR: Regular rate and rhythm without murmurs rubs or gallops. ABDOMINAL: Soft, nontender, nondistended, normal bowel sounds MUSCULOSKELETAL: Moves all extremities. Strength/ROM intact, No edema, No calf tenderness. NEURO: No significant gag on initial evaluation, not withdrawing to pain SKIN: Warm, dry. Normal Color Course Vital Signs Vital signs: Vital Signs Pulse Rate 53 L 02/01/25 09:30 Pulse Oximetry 100 02/01/25 09:30 Oxygen Delivery Mechanical Ventilation 02/01/25 09:30 Fraction of Inspired Oxygen 100 02/01/25 09:30 Pulse Rate 59 L 02/01/25 11:07 Respiratory Rate 16 02/01/25 11:07 Blood Pressure 96/46 L 02/01/25 11:07 Pulse Oximetry 98 02/01/25 11:07 Oxygen Delivery Mechanical Ventilation 02/01/25 10:13 Fraction of Inspired Oxygen 100 02/01/25 09:30 Procedures Intubation Intubation #1: Time out performed: Yes sedative: Etomidate Mg Given: 20 paralytic: Succinylcholine Mg Given: 100 Laryngoscope: fiber optic video scope Tube Size (cm): 7.5 Method of Intubation: orotracheal Number of Attempts: 1 Tube Secured Depth (cm): 23 Tube Secured Location: teeth Tube Placement Confirmation: visualized tube passing through cords, equal breath sounds bilaterally, no breath sounds over epigastrium and confirmation by capnometry Patient Tolerated Procedure: well and no complications Intubation Complications: none Medical Decision Making MDM Narrative Medical decision making narrative: 69-year-old male present to the emergency department for evaluation for altered mental status. Upon arrival patient had poorly controlled airway and was intubated using RSI. Chest x-ray was in proper location. Patient was then transferred to CT which did show a significant intracranial hemorrhage with midline shift. I did talk to the patient's POA and they were initially unsure if they wanted to pursue surgical intervention. I did have a discussion with the neurosurgeon at [facility] and shared the images with her. Surgeon was not ruling out the possibility of surgery of family wanted to pursue this. I had another discussion with the family and after further discussion they do wish to pursue surgical intervention. [facility] was re-contacted and patient was accepted for transfer and patient was transferred by flight. Patient was treated with vitamin K prior to transfer, Kcentra was not given prior to transfer due to not wanting to delay transfer. Differential Diagnosis Differential Diagnosis: ACS, subdural hematoma, subarachnoid hemorrhage Vital Signs Vital Signs: Vital Signs Pulse Rate 53 L 02/01/25 09:30 Pulse Oximetry 100 02/01/25 09:30 Oxygen Delivery Mechanical Ventilation 02/01/25 09:30 Fraction of Inspired Oxygen 100 02/01/25 09:30 Pulse Rate 59 L 02/01/25 11:07 Respiratory Rate 16 02/01/25 11:07 Blood Pressure 96/46 L 02/01/25 11:07 Pulse Oximetry 98 02/01/25 11:07 Oxygen Delivery Mechanical Ventilation 02/01/25 10:13 Fraction of Inspired Oxygen 100 02/01/25 09:30 Lab Data Lab results reviewed: Yes I reviewed the patient's lab results. 02/01/25 09:44 02/01/25 09:44 Labs: Lab Results 02/01/25 02/01/25 Range/Units 09:44 10:14 WBC 7.2 (4.5-10.0) K/mm3 RBC 2.60 L (4.6-6.20) M/mm3 Hgb 7.4 L (14.0-18.0) g/dL Hct 22.9 L (42.0-52.0) % MCV 88.1 (80-100) fl MCH 28.5 (26-34) pg MCHC 32.3 (32-36) g/dl RDW 16.3 H (11.5-14.5) % Plt Count 264 D (150-375) k/mm3 MPV 8.9 (7.4-10.4) fl Immature Gran % (Auto) 0.4 (0-0.5) % Neut % (Auto) 78.1 H (45.5-73.1) % Lymph % (Auto) 17.2 L (18.3-44.2) % Hardeman % (Auto) 4.2 (2.6-8.5) % Eos % (Auto) 0.0 (0-4.4) % Baso % (Auto) 0.1 L (0.2-1.2) % Lymph # (Auto) 1.23 (0.9-3.2) K/mm3 Hardeman # (Auto) 0.3 (0.1-0.6) K/mm3 Eos # (Auto) 0.0 (0-0.3) K/mm3 Baso # (Auto) 0.0 (0.0-0.1) K/mm3 Abs Immat Gran (auto) 0.03 (0.00-0.031) K/mm3 Absolute Neuts (auto) 5.6 (1.3-6.7) K/mm3 Absolute Nucleated RBC 0.000 (0.0-0.012) K/mm3 Nucleated RBC % 0.0 (0.0-0.2) % PT 58.5 H (11.1-14.7) Seconds INR 7.4 H* APTT 139.6 H (22.3-36.8) Seconds Methemoglobin 0.3 (0-1.5) %THb Minute Volume Not Reportable Vent Mode Cmv Tidal Volume 370 ml PEEP 5 cmH2O Peak Inspir Pressure Not Reportable Pressure Support Not Reportable Sodium 136 L (137-145) mmol/L Potassium 4.4 (3.4-5.0) mmol/L Chloride 102 (98-107) mmol/L Carbon Dioxide 29 (22-30) mmol/L Anion Gap 5 (4-12) mmol/L BUN 19 (9-20) mg/dL Creatinine 0.48 L (0.7-1.3) mg/dL Estim Creat Clear Calc 99 ml/min Estimated GFR > 60 (59 - ) Glucose 84 (65-110) mg/dL Calcium 8.6 (8.4-10.2) mg/dL Total Bilirubin 0.1 L (0.2-1.3) mg/dL AST 34 (17-59) U/L ALT 31 (6-50) U/L Alkaline Phosphatase 109 (38-126) U/L Troponin I < 0.012 (0.000-0.034) ng/mL Total Protein 6.6 (6.3-8.2) g/dL Albumin 2.7 L (3.5-5.1) g/dL Blood Type O Positive Antibody Screen Negative ABG Data ABG results: 02/01/25 10:14 Puncture Site Right radial ABG pH 7.452 H ABG pCO2 39.8 ABG pO2 548.6 H ABG PO2/FiO2 Ratio 5.49 ABG HCO3 27.2 H ABG O2 Saturation 99.9 ABG O2 Content 12.3 L ABG Base Excess 3.0 A-a Gradient 124.6 Oxyhemoglobin 98.7 Carboxyhemoglobin 0.7 Reduced Hemoglobin 0.3 Total Hemoglobin 7.7 L* O2 Delivery Device Ventilator O2 Liters/Min Not Reportable Vent Rate 18 FiO2 100 Discharge Plan Discharge Clinical Impression: Acute subdural hematoma, Midline shift of brain due to hematoma Patient Disposition: Acute Care Hospital Condition: Critical Patient Language: [place] Prescriptions: No Action hydrocodone-acetaminophen 5-325 mg tablet 1 tablet PO BID meloxicam 15 mg tablet 15 mg PO DAILY midodrine 5 mg tablet 5 mg PO TID metronidazole 500 mg tablet 500 mg PO TID methimazole 5 mg tablet 5 mg PO BID trihexyphenidyl 2 mg tablet 2 mg PO BID finasteride 5 mg tablet 5 mg PO DAILY acetaminophen 500 mg tablet 1,000 mg PO Q6H PRN (Reason: fever or pain) aripiprazole 10 mg tablet 10 mg PO DAILY ascorbic acid (vitamin C) [Acerola C] 500 mg tablet,chewable 500 mg PO DAILY aspirin 81 mg tablet,chewable 81 mg PO DAILY Daily Fiber (psyllium-aspart) 3.4 gram powder in packet 2 packet PO BID tamsulosin 0.4 mg capsule 0.4 mg PO DAILY polyethylene glycol 3350 [Miralax] 17 gram/dose powder 17 g PO DAILY Mynephrocaps 1 mg capsule 1 cap PO DAILY Pro-Stat Sugar Free 15-100 gram-kcal/30 mL liquid 1 ea PO QID mirtazapine [Remeron] 15 mg tablet 15 mg PO HS senna 8.6 mg capsule 8.6 mg PO BID warfarin 5 mg tablet 5 mg PO DAILY zinc gluconate 50 mg tablet 50 mg PO DAILY sulfamethoxazole-trimethoprim [Bactrim DS] 800-160 mg tablet 1 tablet PO Q12H Qty: 18 0RF levofloxacin 750 mg tablet 750 mg PO DAILY Qty: 9 0RF Follow-up/Referrals: Rubén,Gavi [Other]
[2025-02-01 10:06] LABS: Alanine Aminotransferase 31 U/L (6-50); Albumin Level 2.7 g/dL (3.5-5.1); Alkaline Phosphatase 109 U/L (38-126); Anion Gap 5 mmol/L (4-12); Aspartate Amino Transferase 34 U/L (17-59); Bilirubin,Total 0.1 mg/dL (0.2-1.3); Blood Urea Nitrogen 19 mg/dL (9-20); Calcium 8.6 mg/dL (8.4-10.2); Carbon Dioxide 29 mmol/L (22-30); Chloride 102 mmol/L (98-107); Estimated CRCL calculation 99 ml/min; Estimated Glomerular Filt Rate > 60; Glucose 84 mg/dL (65-110); Potassium 4.4 mmol/L (3.4-5.0); Sodium 136 mmol/L (137-145); Total Protein 6.6 g/dL (6.3-8.2)
[2025-02-01 10:11] LABS: Prothrombin Time 58.5 Seconds (11.1-14.7)
[2025-02-01 10:13] VITALS: O2SAT 100
[2025-02-01 10:13] LABS: Partial Thromboplastin Time 139.6 Seconds (22.3-36.8)
[2025-02-01 10:18] LABS: Troponin I < 0.012 ng/mL (0.000-0.034)
[2025-02-01 10:19] VITALS: BP 118/76; PULSE 64; RESP 18; O2SAT 100
[2025-02-01 10:20] LABS: INR 7.4
[2025-02-01 10:24] LABS: Alveolar/Arterial O2 Gradient 124.6 mmHg; Carboxyhemoglobin 0.7 % THb (0-2.0); Fractional Inspired Oxygen 100 %; HCO3 ABG 27.2 mEq/l (22.0-26.0); Methemoglobin ABG 0.3 %THb (0-1.5); Oxygen Content ABG 12.3 %vol (16.0-22.0); Oxygen Saturation ABG 99.9 % (95.0-100.0); PCO2 ABG 39.8 mmHg (35.0-45.0); PO2 ABG 548.6 mmHg (80.0-100.0); PO2 FiO2 Ratio Arterial Blood 5.49 %; Reduced Hemoglobin 0.3 %THb (0-5.0)
[2025-02-01] MEDS: LACTATED RINGERS 1,000 ML 999 ML IV CONT (10:24)
[2025-02-01 10:26] VITALS: PULSE 50; RESP 18
[2025-02-01] MEDS: FENTANYL 2,500MCG/NS250ML(*CRX 2,500 MCG/250 ML BAG IV CONT (10:26)
[2025-02-01 10:34] LABS: Modified Allen's Test Pass; Site Drawn RIGHT RADIAL
[2025-02-01 10:35] LABS: Arterial Blood Gas Tidal Volume 370 ml; Arterial Blood Gas Ventilator rate 18 /MIN
--- NOTE | 2025-02-01 10:36 | PCRCNOTE ---
ABG delayed due to patient going to imaging.
[2025-02-01 11:07] VITALS: BP 96/46; PULSE 59; RESP 16; O2SAT 98
[2025-02-01] MEDS: PHYTONADIONE INJ 10 MG/ML AMP IM (11:10)
--- NOTE | 2025-02-01 11:15 | PC.NURSE ---
Pt transfer to [facility] with IV Fentanyl drip for sedation and IV fluids.
--- NOTE | 2025-02-01 16:14 | ECG_ITS ---
Test Date: 2025-02-01 09:52:02 Measurements Intervals [place] Rate: 54 P: 86 ME: 162 QRS: -5 QRSD: 110 T: 47 QT: 570 QTc: 542 Interpretive Statements SINUS BRADYCARDIA WITH SINUS ARRHYTHMIA MINIMAL VOLTAGE CRITERIA FOR LVH, CONSIDER NORMAL VARIANT [MEETS CRITERIA IN ONE OF: R(aVL), S(V1), R(V5), R(V5/V6)+S(V1)] NONSPECIFIC ST ELEVATION [0.05+ mV ST ELEVATION] PROLONGED QT INTERVAL CRITICAL TEST RESULT Compared to ECG 02/01/2025 09:36:34 Sinus rhythm no longer present ST (T wave) deviation still present Electronically Signed On 02-01-2025 22:19:10 CDT by Malena Goodman M.D.
== END 2025-02-01 11:15 | disposition short-term general hospital (02) ==
PROVIDERS: Emergency Provider Emergency Medicine
DX: I62.01 Nontraumatic acute subdural hemorrhage (principal); G93.5 Compression of brain
CPT/HCPCS: 31500; 36415; 36600; 70450; 80053; 82375; 82805; 83050; 84484; 85018; 85025; 85610; 85730; 86850; 86900; 86901; 93005; 96361; 96372; 96374; 99285; J0330; J3010; J3430; J7120